=== PATIENT | female | born 1990 | race American Indian/Alaskan Native ===

== ENCOUNTER 2018-09-14 09:17 | Emergency (ER) | payer MEDICAID, OTHER ==
[2018-09-14 09:25] VITALS: BP 104/58
[2018-09-14] MEDS ORDERED: NACL 0.9% 1000 ML 1,000 ML IV ONE ×2 (09:43→11:33)
[2018-09-14] MEDS ORDERED: ATIVAN IV ONE (09:43)
[2018-09-14] MEDS ORDERED: ZOFRAN IV ONE (09:44)
--- NOTE | 2018-09-14 09:48 | Emergency Department Report ---
ED Alcohol HPI - General Chief Complaint: Alcohol Stated Complaint: NAUSEA/VOMITTING Time Seen by Provider: 09/14/18 09:39 Source: patient, EMS Mode of arrival: Wheelchair Limitations: No Limitations - History of Present Illness Initial Comments: Patient is 28 years old female with no significant past medical history. Patient presented to the ER complaining of nausea vomiting and shaking all over. Patient stated that she has been drinking a lot last night. Patient stated that she is depressed because she had a miscarriage one month ago. Patient denied any suicidal or homicidal ideation. She also denied any visual or auditory hallucination. 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 MD Complaint: alcohol intoxication Chronic Alcohol Use: No - Related Data Home Medications Medication Instructions Recorded Confirmed Last Taken Pnv with Ca,No.72/Iron/FA 1 tab PO DAILY 09/17/14 10/11/14 Unknown [ Plus Tablet] Valacyclovir HCl [valACYclovir] 1 tab PO DAILY 09/17/14 10/11/14 Unknown Previous Rx's Medication Instructions Recorded Last Taken Type NIFEdipine 10 mg PO Q6H 30 Days capsule 10/08/14 10/11/14 04:30 Rx 1 DOXYCYCLINE Hyclate [Vibramycin 100 mg PO Q12HR #14 capsule 07/13/18 Unknown Rx CAP] Ibuprofen [Motrin] 800 mg PO Q8HR PRN #20 tablet 07/13/18 Unknown Rx Methylergonovine [Methergine] 0.2 mg PO Q8HR #6 tablet 07/13/18 Unknown Rx metroNIDAZOLE [Flagyl] 500 mg PO Q12HR #14 tab 07/13/18 Unknown Rx Allergies Allergy/AdvReac Type Severity Reaction Status Date / Time No Known Allergies Allergy Verified 06/05/14 09:55 ED Review of Systems ROS: Stated complaint: NAUSEA/VOMITTING Other details as noted in HPI Comment: All other systems reviewed and negative Constitutional: denies: chills, fever Respiratory: denies: cough, orthopnea, shortness of breath, SOB with exertion Cardiovascular: denies: chest pain Gastrointestinal: nausea, vomiting. denies: abdominal pain Musculoskeletal: denies: back pain Psychiatric: anxiety, depression. denies: auditory hallucinations, visual hallucinations, homicidal thoughts, suicidal thoughts ED Past Medical Hx - Past Medical History Previous Medical History?: No Hx Hypertension: No Hx Heart Attack/AMI: No Hx Congestive Heart Failure: No Hx Diabetes: No Hx Deep Vein Thrombosis: No Hx Liver Disease: No Hx Renal Disease: No Hx Sickle Cell Disease: No Hx Seizures: No Hx Psychiatric Treatment: No Hx Asthma: No Hx COPD: No Hx HIV: No Additional medical history: Low BP - Surgical History Past Surgical History?: No - Social History Smoking Status: Never Smoker Substance Use Type: Alcohol - Medications Home Medications: Home Medications Medication Instructions Recorded Confirmed Last Taken Type Pnv with Ca,No.72/Iron/FA 1 tab PO DAILY 09/17/14 10/11/14 Unknown History [ Plus Tablet] Valacyclovir HCl [valACYclovir] 1 tab PO DAILY 09/17/14 10/11/14 Unknown History NIFEdipine 10 mg PO Q6H 30 Days capsule 10/08/14 10/11/14 10/11/14 04:30 Rx 1 DOXYCYCLINE Hyclate [Vibramycin 100 mg PO Q12HR #14 capsule 07/13/18 Unknown Rx CAP] Ibuprofen [Motrin] 800 mg PO Q8HR PRN #20 tablet 07/13/18 Unknown Rx Methylergonovine [Methergine] 0.2 mg PO Q8HR #6 tablet 07/13/18 Unknown Rx metroNIDAZOLE [Flagyl] 500 mg PO Q12HR #14 tab 07/13/18 Unknown Rx ED Physical Exam - General Limitations: No Limitations General appearance: alert, anxious, other (shaking) - Head Head exam: Present: atraumatic, normocephalic, normal inspection - Eye Eye exam: Present: normal appearance, PERRL - ENT ENT exam: Present: normal exam, normal orophraynx, mucous membranes moist - Neck Neck exam: Present: normal inspection, full ROM. Absent: tenderness, meningismus, lymphadenopathy, thyromegaly - Respiratory Respiratory exam: Present: normal lung sounds bilaterally - Cardiovascular Cardiovascular Exam: Present: tachycardia - GI/Abdominal GI/Abdominal exam: Present: soft, normal bowel sounds. Absent: distended, tenderness, guarding, rebound, rigid - Extremities Exam Extremities exam: Present: normal inspection, full ROM, normal capillary refill - Back Exam Back exam: Present: normal inspection, full ROM. Absent: CVA tenderness (R), CVA tenderness (L) - Neurological Exam Neurological exam: Present: alert, oriented X3, CN II-XII intact - Psychiatric Psychiatric exam: Present: depressed, anxious. Absent: agitated, flat affect, manic, homicidal ideation, suicidal ideation - Skin Skin exam: Present: warm, intact, normal color ED Course Vital Signs 09/14/18 09/14/18 09:23 10:00 Temperature 97.6 F Pulse Rate 102 H Respiratory 20 18 Rate Blood Pressure 104/58 O2 Sat by Pulse 100 Oximetry ED Medical Decision Making - Lab Data Result diagrams: 09/14/18 10:05 09/14/18 10:05 - Medical Decision Making Patient is 28 years old female with no significant past medical history. Patient presented to the ER complaining of nausea vomiting and shaking all over. Patient stated that she has been drinking a lot last night. Patient stated that she is depressed because she had a miscarriage one month ago. Patient denied any suicidal or homicidal ideation. She also denied any visual or auditory hallucination. 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 Patient stated that she is feeling much better. Patient is still denying suicidal ideation and refusing mental health assessment. The patient received normal saline and Ativan. No evidence of alcohol withdrawal. Patient advised to follow-up with her primary care physician in the next 2-3 days and to return to the ER if symptoms are not improved. Critical care attestation.: If time is entered above; I have spent that time in minutes in the direct care of this critically ill patient, excluding procedure time. ED Disposition Clinical Impression: Nausea & vomiting, Anxiety, Depression Disposition: DC-01 TO HOME OR SELFCARE Is pt being admited?: No Condition: Stable Instructions: Acute Nausea and Vomiting (ED), Depression (ED) Referrals: CHRIS CAO MD [Primary Care Provider] - 3-5 Days
[2018-09-14 10:19] LABS: Hematocrit 39.1 % (30.3-42.9); Hemoglobin 13.1 gm/dl (10.1-14.3); Mean Corpuscular HGB Conc 34 % (30-34); Mean Corpuscular Volume 85 fl (79-97); Platelet Count 233 K/mm3 (140-440); Red Cell Distribution Width 13.6 % (13.2-15.2)
[2018-09-14 11:04] LABS: BUN/Creatinine Ratio 18; Blood Urea Nitrogen 11 mg/dL (7-17); Calcium 8.4 mg/dL (8.4-10.2); Hemolysis Index 23
[2018-09-14 11:10] LABS: Basophils % (Manual) 0 % (0.0-1.8); Eosinophils % (Manual) 0 % (0.0-4.3); RBC Morphology Normal; Total Cells Counted 100
[2018-09-14 13:36] LABS: Bilirubin,Urine NEG (Negative); Blood,Urine NEG (Negative); Color,Urine Yellow (Yellow); Mucus,Urine FEW /HPF; Protein,Urine <15 mg/dL mg/dL (Negative); Urobilinogen,Urine < 2.0 mg/dL (<2.0)
[2018-09-14 13:44] LABS: Amphetamine Screen,Urine PRESUMPTIVE NEGATIVE; Benzodiazepines Screen,Urine PRESUMPTIVE NEGATIVE; Cocaine Screen,Urine PRESUMPTIVE NEGATIVE; Methadone Screen,Urine PRESUMPTIVE NEGATIVE; Opiate Screen,Urine PRESUMPTIVE NEGATIVE
[2018-09-14 14:02] LABS: Cannabinoid Screen,Urine PRESUMPTIVE POSITIVE
== END 2018-09-14 13:18 | disposition home or self-care (01) ==
LOC: ED 09:17
DX: R11.2 Nausea with vomiting, unspecified (principal); F32.9 Major depressive disorder, single episode, unspecified; F41.9 Anxiety disorder, unspecified; Z79.899 Other long term (current) drug therapy
CPT/HCPCS: 36415; 80048; 80307; 81001; 83690; 85007; 85025; 96361; 96374; 96375; 99284; G0480; J2060; J2405; J7030; 80320

== ENCOUNTER 2020-08-31 22:11 | Emergency (ER) | payer MEDICAID ==
[2020-08-31 22:18] VITALS: BP 126/80
== END 2020-08-31 23:45 | disposition left against medical advice (07) ==
LOC: ED 22:11
DX: R10.9 Unspecified abdominal pain (principal); Z53.21 Procedure and treatment not carried out due to patient leaving prior to being seen by health care provider

== ENCOUNTER 2020-12-28 13:28 | Observation (INO) | payer MEDICAID, OTHER ==
[2020-12-28] MEDS ORDERED: ONDANSETRON 4 MG/2 ML INJ IV PRN ×2 (14:06→16:54)
[2020-12-28] MEDS ORDERED: PROMETHAZINE 25 MG RECT SUPP PR SCH ×2 (15:00→17:00)
[2020-12-28] MEDS ORDERED: METOCLOPRAMIDE 10 MG/2 ML INJ IV SCH ×2 (15:00→17:00)
[2020-12-28] MEDS: D5W/LACTATED RINGERS 1,000 ML IV SCH ×3 (15:47→20:22)
[2020-12-28 15:56] LABS: Bilirubin,Urine NEG (Negative); Blood,Urine NEG (Negative); Color,Urine Yellow (Yellow); Protein,Urine <15 mg/dL mg/dL (Negative); Urobilinogen,Urine < 2.0 mg/dL (<2.0)
[2020-12-28 16:08] LABS: Blood Urea Nitrogen 4 mg/dL (7-17); Calcium 9.3 mg/dL (8.4-10.2); Hemolysis Index 8
[2020-12-28 16:09] LABS: BUN/Creatinine Ratio 13
[2020-12-28] MEDS ORDERED: D5W/LACTATED RINGERS 1,000 ML IV SCH ×2 (17:00)
--- NOTE | 2020-12-28 17:04 | History and Physical Report ---
History of Present Illness Date of examination: 12/28/20 Date of admission: 12/28/20 14:32 Chief complaint: hyperemesis History of present illness: This is Dr. Robertson dictating history and physical patient. Patient is a 30-year-old -[place] female 7 para 3-0-3-3 female last menstrual period 09/30/2020 EDC 07/01/2021 patient has had nausea and vomiting for about 4 days she is early 14 weeks she has been a patient at [facility] for this . Her labs at the clinic showed her blood type was O+ antibody screen was negative Pap smear was normal hematocrit was 40% VDRL was nonreactive urine culture was negative hepatitis B was negative HIV test was negative platelets were 261,000 her gonorrhea chlamydia cultures were negative. Her trichomonas culture was negative hemoglobin A1c was 5.1% she had ultrasound done on 12/07/2020 consistent with 10.4 weeks given her EDC 07/01/2021 are inherited test showed positive for alpha thalassemia therefore the patient has alpha thalassemia trait the father the baby is to be tested as a family history of Fragile X associated with 3 male family members are carrier screen is negative Catamenia 1128 5. This is her seventh she has had 3 full-term induced abortions 1 spontaneous she has 3 living children. The patient drinks alcohol socially she never smoked tobacco The patient is admitted for treatment of hyperemesis at 14 weeks gestation. Past History Past Medical History: no pertinent history Past Surgical History: no surgical history Family/Genetic History: other (FRAGILE X.) - Obstetrical History Expected Date of Delivery: 07/01/21 Actual Gestation: 13 Week(s) 4 Day(s) : 7 Para: 3 Hx # Term Pregnancies: 3 Number of Pregnancies: 0 Spontaneous Abortions: 2 Induced : 1 Number of Living Children: 3 Medications and Allergies Allergies Allergy/AdvReac Type Severity Reaction Status Date / Time No Known Allergies Allergy Verified 06/05/14 09:55 Home Medications Medication Instructions Recorded Confirmed Last Taken Type Pnv with Ca,No.72/Iron/FA 1 tab PO DAILY 09/17/14 10/11/14 Unknown History [ Plus Tablet] Valacyclovir HCl [valACYclovir] 1 tab PO DAILY 09/17/14 10/11/14 Unknown History NIFEdipine 10 mg PO Q6H 30 Days capsule 10/08/14 10/11/14 10/11/14 04:30 Rx 1 DOXYCYCLINE Hyclate [Vibramycin 100 mg PO Q12HR #14 capsule 07/13/18 Unknown Rx CAP] Ibuprofen [Motrin] 800 mg PO Q8HR PRN #20 tablet 07/13/18 Unknown Rx Methylergonovine [Methergine] 0.2 mg PO Q8HR #6 tablet 07/13/18 Unknown Rx metroNIDAZOLE [Flagyl] 500 mg PO Q12HR #14 tab 07/13/18 Unknown Rx Ondansetron [Zofran Odt] 4 mg PO Q8HR PRN #14 tab.rapdis 09/14/18 Unknown Rx Active Meds: Active Medications Dextrose/Lactated Ringer's (D5lr) 1,000 mls @ 500 mls/hr IV DIRECT ALLAN Stop: 12/29/20 16:59 Last Admin: 12/28/20 15:47 Dose: 500 mls/hr Documented by: Dextrose/Lactated Ringer's (D5lr) 1,000 mls @ 150 mls/hr IV DIRECT ALLAN Metoclopramide HCl (Metoclopramide 10 Mg/2 Ml Inj) 10 mg IV Q6H ALLAN Last Admin: 12/28/20 15:32 Dose: 10 mg Documented by: Multivitamins/Iron/Calcium ( Brl71-Cr Fumarate-Folic Acid Vit Tab) 1 each PO QDAY ALLAN Ondansetron HCl (Ondansetron 4 Mg/2 Ml Inj) 4 mg IV Q6H PRN PRN Reason: N/V unrelieved by Oliver Promethazine HCl (Promethazine 25 Mg Rect Supp) 25 mg VA Q6H ALLAN Last Admin: 12/28/20 15:32 Dose: 25 mg Documented by: Review of Systems All systems: negative - Vital Signs Vital signs: Vital Signs Temp Pulse Resp BP Pulse Ox 98.3 F 84 18 102/50 100 12/28/20 15:10 12/28/20 15:10 12/28/20 15:10 12/28/20 15:10 12/28/20 15:10 Temp Pulse Resp BP Pulse Ox 98.3 F 84 18 102/50 100 12/28/20 15:10 12/28/20 15:10 12/28/20 15:10 12/28/20 15:10 12/28/20 15:20 - Physical Exam Breasts: Positive: normal Cardiovascular: Regular rate, Normal S1, Normal S2 Lungs: Positive: Clear to auscultation, Normal air movement Abdomen: Positive: normal appearance, normal bowel sounds Genitourinary (Female): Positive: normal external genitalia, normal perenium Vulva: both: normal Vagina: Positive: normal moisture. Negative: discharge Cervix: Negative: lesion, discharge Uterus: Positive: enlarged (14 WK SIZE) Adnexa: both: normal Anus/Rectum: Positive: normal perianal skin, heme negative. Negative: rectal mass, hemorrhoids Extremities: Deep Tendon Reflex Grade: Normal +2 - Obstetrical FHR: auscultation normal Uterine Contraction Monitor Mode: External Cervical Dilatation: 0 Cervical Effacement Percentage: 0 Uterine Contraction Pattern: Absent Results Result Diagrams: 12/28/20 15:10 Abnormal lab results 12/28/20 Range/Units 15:10 Sodium 133 L (137-145) mmol/L Carbon Dioxide 17 L (22-30) mmol/L BUN 4 L (7-17) mg/dL Creatinine 0.3 L (0.6-1.2) mg/dL All other labs normal. Assessment and Plan - Patient Problems (1) Hyperemesis gravidarum Onset Date: 07/12/14 Current Visit: No Status: Acute (2) Hyperemesis affecting , antepartum Current Visit: Yes Status: Acute Plan to address problem: IV FLUIDS. BEDREST.
[2020-12-28] MEDS ORDERED: ZOLPIDEM 5 MG TAB PO PRN (17:16)
[2020-12-28] MEDS ORDERED: ACETAMINOPHEN 325 MG TAB PO PRN (20:11)
[2020-12-29] MEDS: D5W/LACTATED RINGERS 1,000 ML IV SCH (01:03)
--- NOTE | 2020-12-29 09:27 | XRay Report ---
. XR chest 1V ap INDICATION / CLINICAL INFORMATION: Covid positive. COMPARISON: None available. FINDINGS: SUPPORT DEVICES: None. HEART /PULMONARY VASCULATURE: No significant abnormality. LUNGS / PLEURA: No significant pulmonary or pleural abnormality. No pneumothorax. ADDITIONAL FINDINGS: No significant additional findings. IMPRESSION: 1. No acute findings. Signer Name: Clinton Conti MD Signed: 12/29/2020 9:23 AM Workstation Name: [id number]
--- NOTE | 2020-12-29 09:50 | Progress Note ---
Subjective - Subjective Date of service: 12/29/20 Interval history: Hyperemesis: tolerating PO COVID: no ARDS: O2 sats WNL on room air meets discharge criteria Logan Mckay MD Objective - Vital Signs Latest vital signs: Vital Signs Temp Pulse Resp BP Pulse Ox 12/29/20 05:32 98.6 F 76 20 99/55 100 12/29/20 00:00 99.0 F 86 18 100/46 100 12/28/20 20:47 20 12/28/20 20:16 98.7 F 85 20 101/52 98 12/28/20 15:20 100 12/28/20 15:10 98.3 F 84 18 102/50 100 Intake and Output 12/28/20 12/29/20 12/29/20 23:59 07:59 15:59 Intake Total 1120 822.5 Output Total 400 Balance 720 822.5 Intake: IV 1000 702.5 D5lr 1,000 ml @ 150 mls/ 702.5 hr IV DIRECT ALLAN Rx#: [id number] D5lr 1,000 ml @ 500 mls/ 1000 hr IV DIRECT ALLAN Rx#: [id number] Oral 120 Intake, Free Water 120 Output: Urine 400 Void 400 Other: Total, Intake Amount 120 Total, Output Amount 400 # Voids Void 1 1 Weight 53.099 kg Patient Weight 12/29/20 23:59 Weight 53.099 kg - Labs Labs: Abnormal lab results 12/28/20 Range/Units 15:10 Sodium 133 L (137-145) mmol/L Carbon Dioxide 17 L (22-30) mmol/L BUN 4 L (7-17) mg/dL Creatinine 0.3 L (0.6-1.2) mg/dL
--- NOTE | 2020-12-29 09:51 | Discharge Summary ---
Providers - Providers Date of Admission: 12/28/20 14:32 Date of discharge: 12/29/20 Attending physician: BRENDA MACK MD 12/28/20 14:06 Consult to Dietitian/Nutrition [CONS] Routine Physician Instructions: Reason For Exam: HYPEREMESIS, 13 WKS. Reason for Consult: hyper grav Reason for Consult: HYPEREMESIS GRAVIDARUM 12/28/20 16:54 Consult to Dietitian/Nutrition [CONS] Routine Physician Instructions: Reason For Exam: Reason for Consult: hyper grav Reason for Consult: Poor oral intake Primary care physician: [facility] Hospitalization Reason for admission: other (hyperemesis gravidarum, COVID) Condition at discharge: Stable Disposition: 01 HOME / SELF CARE / HOMELESS Plan - Provider Discharge Summary Additional instructions: [] Smoking cessation referral if applicable(refer to patient education folder for contact #) [] Refer to [facility] Booklet Call your doctor immediately for: * Fever > 100.5 * Heavy vaginal bleeding ( >1 pad per hour) * Severe persistent headache * Shortness of breath * Reddened, hot, painful area to leg or breast * Drainage or odor from incision. * Keep incision clean and dry at all times and follow doctor's instructions regarding bathing/showering - Follow up plan Follow up: PRIMARY CAREMD [Primary Care Provider] - 7 Days
[2020-12-29] MEDS ORDERED: PRENATAL VIT27-FE FUMARATE-FOLIC ACID VIT TAB PO SCH ×2 (10:00)
[2020-12-29 12:24] VITALS: BP 105/62
== END 2020-12-29 12:00 | disposition home or self-care (01) ==
LOC: UNDOADMOB 13:28 → 3A 13:28 → OB 14:32
DX: O21.0 Mild hyperemesis gravidarum (principal); Z3A.13 13 weeks gestation of pregnancy
CPT/HCPCS: 36415; 71045; 80048; 81001; 96361; 96374; 96375; 96376; G0378; G0379; J2405; J2765; J7121

== ENCOUNTER 2021-01-27 16:09 | Emergency (ER) | payer OTHER ==
[2021-01-27] MEDS ORDERED: METOCLOPRAMIDE 10 MG/2 ML INJ IV ONE (16:34)
--- NOTE | 2021-01-27 16:53 | Emergency Department Report ---
HPI - HPI HPI: Room 5 The patient is a 30-year-old female present with a chief complaint of premature contractions. Patient states she is approximately 16 weeks gestational age in early this morning she developed episodes of nausea vomiting. Patient states approximately 1 hour ago she developed intermittent pelvic contractions approximately 1-2 minutes apart. <KINGSTON GOLDBERG - Last Filed: 01/27/21 19:54> <JANE FELIX - Last Filed: 01/27/21 20:35> - General Chief Complaint: Abdominal Pain Time Seen by Provider: 01/27/21 16:22 ED Past Medical Hx - Past Medical History Hx Hypertension: No Hx Heart Attack/AMI: No Hx Congestive Heart Failure: No Hx Diabetes: No Hx Deep Vein Thrombosis: No Hx Liver Disease: No Hx Renal Disease: No Hx Sickle Cell Disease: No Hx Seizures: No Hx Psychiatric Treatment: No Hx Asthma: No Hx COPD: No Hx HIV: No Additional medical history: Low BP - Surgical History Additional Surgical History: D&C - Social History Smoking Status: Never Smoker <KINGSTON GOLDBERG - Last Filed: 01/27/21 19:54> <JANE FELIX - Last Filed: 01/27/21 20:35> - Medications Home Medications: Home Medications Medication Instructions Recorded Confirmed Last Taken Type Pnv with Ca,No.72/Iron/FA 1 tab PO DAILY 09/17/14 12/28/20 Unknown History [ Plus Tablet] Doxylamine Succinate/Vit B6 1 each PO QHS PRN #30 tablet. 01/27/21 Unknown Rx [Bruce Arce 10-10 mg Tablet] Christiano Root [Christiano] 250 mg PO Q6HR PRN #30 capsule 01/27/21 Unknown Rx NIFEdipine [Nifedipine] 10 mg PO Q6H PRN #30 capsule 01/27/21 Unknown Rx ED Review of Systems ROS: Stated complaint: abd pains Other details as noted in HPI <KINGSTON GOLDBERG - Last Filed: 01/27/21 19:54> ROS: Stated complaint: abd pains Other details as noted in HPI <JANE FELIX - Last Filed: 01/27/21 20:35> Physical Exam - Physical Exam Vital Signs: Vital Signs 01/27/21 16:17 Temperature 97.9 F Pulse Rate 80 Respiratory 22 Rate Blood Pressure 102/42 [Right] O2 Sat by Pulse 100 Oximetry <YUSUFKINGSTON Brien - Last Filed: 01/27/21 19:54> - Physical Exam Vital Signs: Vital Signs 01/27/21 01/27/21 01/27/21 16:17 16:55 18:30 Temperature 97.9 F Pulse Rate 80 90 Respiratory 22 16 Rate Blood Pressure 102/42 105/50 [Right] O2 Sat by Pulse 100 96 100 Oximetry <JANE FELIX - Last Filed: 01/27/21 20:35> ED Course Vital Signs 01/27/21 16:17 Temperature 97.9 F Pulse Rate 80 Respiratory 22 Rate Blood Pressure 102/42 [Right] O2 Sat by Pulse 100 Oximetry - Reevaluation(s) Reevaluation #1: 01/27/21 19:53 Patient states she feels good now and is ready to go home. - Consultations Consultation #1: 01/27/21 16:53 Case discussed with [employer] Dr. Snell-recommends nifedipine 20 mg p.o. x1, Ancef 2 g IV, IV fluids and an ultrasound 01/27/21 19:[address] Snell urinalysis is pending-states patient may be discharged home with nifedipine 10 mg p.o. every 6 hours as needed contractions #30 and treat with antibiotics if urine indicative of UTI. <CHILOKatharinaKINGSTON Brien - Last Filed: 01/27/21 19:54> Vital Signs 01/27/21 01/27/21 01/27/21 16:17 16:55 18:30 Temperature 97.9 F Pulse Rate 80 90 Respiratory 22 16 Rate Blood Pressure 102/42 105/50 [Right] O2 Sat by Pulse 100 96 100 Oximetry - Reevaluation(s) Reevaluation #1: 01/27/21 20:34 Patient reassessed. Urinalysis not consistent with infectious pathology. Patient denies physical pain. Patient endorses readiness for discharge. States dissatisfaction with Zofran secondary to underlying constipation. Reports that she has not attempted christiano tablets, or Diclegis. We will discharge with Diclegis and christiano prescriptions. Counseled to rest, avoid heavy lifting, and sexual activity. Patient articulated understanding. She does not go back to work until next week. She is also going to call her [employer], and follow-up next week. <JANE FELIX - Last Filed: 01/27/21 20:35> ED Medical Decision Making - Lab Data Result diagrams: 01/27/21 18:10 01/27/21 18:10 - Radiology Data Radiology results: report reviewed (Pelvic ultrasound), image reviewed (Pelvic ultrasound) [facility] [address] [place] [address] Ultrasound Report Signed Patient: RAGHAVENDRA DURAN MR#: [id number] : 1990 Acct:[id number] Age/Sex: 30 / F ADM Date: 01/27/21 Loc: ED Attending Dr: Ordering Physician: KINGSTON GOLDBERG MD Date of Service: 01/27/21 Procedure(s): US OB >= 14 weeks Fetus Accession Number(s): [id number] cc: KINGSTON GOLDBERG MD ULTRASOUND OBSTETRIC INDICATION / CLINICAL INFORMATION: Premature contractions. Clinical Gestational Age (GA) in weeks, days: 18, 1 TECHNIQUE: Transabdominal. COMPARISON: None available. FINDINGS: Single intrauterine . Biparietal Diameter = 3.9 cm = 17, 5 weeks, days Head Circumference = 14.3 cm = 17, 4 weeks, days Abdominal Circumference = 12.6 cm = 18, 1 weeks, days Femur Length = 2.3 cm = 17, 0 weeks, days Average Ultrasound Age (AUA) = 17, 4 weeks, days Heart Rate: 152 beats per minute. Estimated Weight in grams (if calculated): 202 Estimated Weight Growth Percentile (if calculated): 17% Position: cephalic. Cervix: closed. Length in cm (if measured): 4.0 Placenta: anterior and free of the os. Amniotic Fluid Volume: normal Amniotic Fluid Index (BERNARD) in cm (if calculated): Not calculated. Maternal Adnexa: No significant abnormality. IMPRESSION: 1. Single, living intrauterine with estimated sonographic age of 17, 4 weeks, days. 2. No acute sonographic abnormality. Signer Name: Nima Oneal MD Signed: 01/27/2021 6:23 PM Workstation Name: [id number] Transcribed By: DT Dictated By: Laz Oneal MD Electronically Authenticated By: Laz Oneal MD Signed Date/Time: 01/27/21 045 DD/ 20 TD/TT: Print Cancel - Differential Diagnosis labor, threatened <CHILOKatharinaKINGSTON K - Last Filed: 01/27/21 19:54> - Lab Data Result diagrams: 01/27/21 18:10 01/27/21 18:10 Vital Signs 01/27/21 01/27/21 01/27/21 16:17 16:55 18:30 Temperature 97.9 F Pulse Rate 80 90 Respiratory 22 16 Rate Blood Pressure 102/42 105/50 [Right] O2 Sat by Pulse 100 96 100 Oximetry Lab Results 01/27/21 01/27/21 01/27/21 Range/Units 18:10 18:10 18:10 WBC 16.9 H (4.5-11.0) K/mm3 RBC 4.07 (3.65-5.03) M/mm3 Hgb 11.8 (10.1-14.3) gm/dl Hct 35.0 (30.3-42.9) % MCV 86 (79-97) fl MCH 29 (28-32) pg MCHC 34 (30-34) % RDW 13.4 (13.2-15.2) % Plt Count 220 (140-440) K/mm3 Lymph % (Auto) 7.7 L (13.4-35.0) % [place] % (Auto) 4.6 (0.0-7.3) % Eos % (Auto) 0.2 (0.0-4.3) % Baso % (Auto) 0.1 (0.0-1.8) % Lymph # (Auto) 1.3 (1.2-5.4) K/mm3 [place] # (Auto) 0.8 (0.0-0.8) K/mm3 Eos # (Auto) 0.0 (0.0-0.4) K/mm3 Baso # (Auto) 0.0 (0.0-0.1) K/mm3 Seg Neutrophils % 87.4 H (40.0-70.0) % Seg Neutrophils # 14.7 H (1.8-7.7) K/mm3 Sodium 134 L (137-145) mmol/L Potassium 3.4 L (3.6-5.0) mmol/L Chloride 103.1 (98-107) mmol/L Carbon Dioxide 17 L (22-30) mmol/L Anion Gap 17 mmol/L BUN 6 L (7-17) mg/dL Creatinine 0.4 L (0.6-1.2) mg/dL Estimated GFR > 60 ml/min BUN/Creatinine Ratio 15 % Glucose 91 (65-100) mg/dL Calcium 8.5 (8.4-10.2) mg/dL Total Bilirubin 0.30 (0.1-1.2) mg/dL AST < 5 L (5-40) units/L ALT 13 (7-56) units/L Alkaline Phosphatase 71 (35-129) units/L Total Protein 7.0 (6.3-8.2) g/dL Albumin 3.9 (3.9-5) g/dL Albumin/Globulin Ratio 1.3 % HCG, Quant 96833 H (0-4) mIU/mL Urine Color (Yellow) Urine Turbidity (Clear) Urine pH (5.0-7.0) Ur Specific [place] (1.003-1.030) Urine Protein (Negative) mg/dL Urine Glucose (UA) (Negative) mg/dL Urine Ketones (Negative) mg/dL Urine Blood (Negative) Urine Nitrite (Negative) Urine Bilirubin (Negative) Urine Urobilinogen (<2.0) mg/dL Ur Leukocyte Esterase (Negative) Urine WBC (Auto) (0.0-6.0) /HPF Urine RBC (Auto) (0.0-6.0) /HPF U Epithel Cells (Auto) (0-13.0) /HPF Amorphous Crystals Urine Mucus /HPF Blood Type 01/27/21 01/27/21 Range/Units 18:10 18:41 WBC (4.5-11.0) K/mm3 RBC (3.65-5.03) M/mm3 Hgb (10.1-14.3) gm/dl Hct (30.3-42.9) % MCV (79-97) fl MCH (28-32) pg MCHC (30-34) % RDW (13.2-15.2) % Plt Count (140-440) K/mm3 Lymph % (Auto) (13.4-35.0) % [place] % (Auto) (0.0-7.3) % Eos % (Auto) (0.0-4.3) % Baso % (Auto) (0.0-1.8) % Lymph # (Auto) (1.2-5.4) K/mm3 [place] # (Auto) (0.0-0.8) K/mm3 Eos # (Auto) (0.0-0.4) K/mm3 Baso # (Auto) (0.0-0.1) K/mm3 Seg Neutrophils % (40.0-70.0) % Seg Neutrophils # (1.8-7.7) K/mm3 Sodium (137-145) mmol/L Potassium (3.6-5.0) mmol/L Chloride (98-107) mmol/L Carbon Dioxide (22-30) mmol/L Anion Gap mmol/L BUN (7-17) mg/dL Creatinine (0.6-1.2) mg/dL Estimated GFR ml/min BUN/Creatinine Ratio % Glucose (65-100) mg/dL Calcium (8.4-10.2) mg/dL Total Bilirubin (0.1-1.2) mg/dL AST (5-40) units/L ALT (7-56) units/L Alkaline Phosphatase (35-129) units/L Total Protein (6.3-8.2) g/dL Albumin (3.9-5) g/dL Albumin/Globulin Ratio % HCG, Quant (0-4) mIU/mL Urine Color Yellow (Yellow) Urine Turbidity Hazy (Clear) Urine pH 8.0 H (5.0-7.0) Ur Specific [place] 1.016 (1.003-1.030) Urine Protein 30 mg/dl (Negative) mg/dL Urine Glucose (UA) Neg (Negative) mg/dL Urine Ketones 20 (Negative) mg/dL Urine Blood Neg (Negative) Urine Nitrite Neg (Negative) Urine Bilirubin Neg (Negative) Urine Urobilinogen < 2.0 (<2.0) mg/dL Ur Leukocyte Esterase Neg (Negative) Urine WBC (Auto) 2.0 (0.0-6.0) /HPF Urine RBC (Auto) 2.0 (0.0-6.0) /HPF U Epithel Cells (Auto) 3.0 (0-13.0) /HPF Amorphous Crystals Few Urine Mucus Few /HPF Blood Type O POSITIVE <JANE FELIX - Last Filed: 01/27/21 20:35> Critical care attestation.: If time is entered above; I have spent that time in minutes in the direct care of this critically ill patient, excluding procedure time. <CHILOKatharinaKINGSTON - Last Filed: 01/27/21 19:54> Critical care attestation.: If time is entered above; I have spent that time in minutes in the direct care of this critically ill patient, excluding procedure time. <ISIDROJANE - Last Filed: 01/27/21 20:35> ED Disposition Is pt being admited?: No Does the pt Need Aspirin: No <KINGSTON GOLDBERG - Last Filed: 01/27/21 19:54> Is pt being admited?: No Does the pt Need Aspirin: No <ISIDROJANE - Last Filed: 01/27/21 20:35> Clinical Impression: Premature uterine contractions Disposition: 01 HOME / SELF CARE / HOMELESS Condition: Good Instructions: Abdominal Pain (ED) Additional Instructions: Return to the emergency department should you develop worsening symptoms, inability to tolerate food or liquids, high fever or any other concerns Prescriptions: Doxylamine Succinate/Vit B6 [Bruce Arce 10-10 mg Tablet] 1 each PO QHS PRN #30 tablet. PRN Reason: Nausea Christiano Root [Christiano] 250 mg PO Q6HR PRN #30 capsule PRN Reason: Nausea NIFEdipine [Nifedipine] 10 mg PO Q6H PRN #30 capsule PRN Reason: Labor Pain Referrals: BRAYAN SNELL MD [Staff Physician] - 7-10 days
[2021-01-27] MEDS: SODIUM CHLORIDE 0.9% 1000 ML 1,000 ML IV ONE ×2 (16:54→17:10)
[2021-01-27] MEDS ORDERED: NIFEdipine*For Tocolysis only* 10 MG CAPSULE PO ONE (17:00)
[2021-01-27] MEDS ORDERED: ONDANSETRON 4 MG/2 ML INJ IV ONE ×2 (17:05→20:08)
--- NOTE | 2021-01-27 18:27 | Ultrasound Report ---
ULTRASOUND OBSTETRIC INDICATION / CLINICAL INFORMATION: Premature contractions. Clinical Gestational Age (GA) in weeks, days: 18, 1 TECHNIQUE: Transabdominal. COMPARISON: None available. FINDINGS: Single intrauterine . Biparietal Diameter = 3.9 cm = 17, 5 weeks, days Head Circumference = 14.3 cm = 17, 4 weeks, days Abdominal Circumference = 12.6 cm = 18, 1 weeks, days Femur Length = 2.3 cm = 17, 0 weeks, days Average Ultrasound Age (AUA) = 17, 4 weeks, days Heart Rate: 152 beats per minute. Estimated Weight in grams (if calculated): 202 Estimated Weight Growth Percentile (if calculated): 17% Position: cephalic. Cervix: closed. Length in cm (if measured): 4.0 Placenta: anterior and free of the os. Amniotic Fluid Volume: normal Amniotic Fluid Index (BERNARD) in cm (if calculated): Not calculated. Maternal Adnexa: No significant abnormality. IMPRESSION: 1. Single, living intrauterine with estimated sonographic age of 17, 4 weeks, days. 2. No acute sonographic abnormality. Signer Name: Nima Oneal MD Signed: 01/27/2021 6:23 PM Workstation Name: [id number]
[2021-01-27 18:39] LABS: Basophils % (Auto) 0.1 % (0.0-1.8); Eosinophils % (Auto) 0.2 % (0.0-4.3); Hemoglobin 11.8 gm/dl (10.1-14.3); Lymphocytes # (Auto) 1.3 K/mm3 (1.2-5.4); Lymphocytes % (Auto) 7.7 % (13.4-35.0); Mean Corpuscular HGB Conc 34 % (30-34); Mean Corpuscular Volume 86 fl (79-97); Monocytes # (Auto) 0.8 K/mm3 (0.0-0.8); Monocytes % (Auto) 4.6 % (0.0-7.3); Platelet Count 220 K/mm3 (140-440); Red Blood Count 4.07 M/mm3 (3.65-5.03); Red Cell Distribution Width 13.4 % (13.2-15.2)
[2021-01-27 18:46] LABS: Alanine Aminotransferase 13 units/L (7-56); Albumin 3.9 g/dL (3.9-5); Blood Urea Nitrogen 6 mg/dL (7-17); Calcium 8.5 mg/dL (8.4-10.2); Hemolysis Index 0
[2021-01-27 18:52] LABS: BUN/Creatinine Ratio 15
[2021-01-27 20:05] LABS: Amorphous Crystals,Urine Few; Bilirubin,Urine NEG (Negative); Blood,Urine NEG (Negative); Color,Urine Yellow (Yellow); Mucus,Urine FEW /HPF; Urobilinogen,Urine < 2.0 mg/dL (<2.0)
[2021-01-27 20:42] VITALS: BP 96/49
== END 2021-01-27 21:18 | disposition home or self-care (01) ==
LOC: ED 16:09
DX: O47.02 False labor before 37 completed weeks of gestation, second trimester (principal); Z3A.16 16 weeks gestation of pregnancy
CPT/HCPCS: 36415; 76805; 80053; 81001; 84702; 85025; 86900; 86901; 96361; 96365; 96375; 96376; 99284; J0690; J2405; J2765; J7030

== ENCOUNTER 2021-01-29 23:25 | Emergency (ER) | payer OTHER ==
[2021-01-29] MEDS ORDERED: METOCLOPRAMIDE 10 MG/2 ML INJ IV ONE (23:32)
[2021-01-29] MEDS ORDERED: FAMOTIDINE 20 MG/2 ML INJ IV ONE (23:32)
[2021-01-29] MEDS ORDERED: diphenhydrAMINE 50 MG/ML VIAL IV ONE (23:32)
[2021-01-29] MEDS ORDERED: MORPHINE 4 MG/1 ML INJ IV ONE (23:32)
[2021-01-29] MEDS ORDERED: SODIUM CHLORIDE 0.9% 1000 ML 1,000 ML IV ONE (23:33)
--- NOTE | 2021-01-29 23:35 | Event Note ---
ED Screening Note Date of service: 01/29/21 Time: 23:33 ED Screening Note: Patient is a G7, 40-year-old -[place] female with no past medical history and who is approximately 18 weeks gestation presents to the ED with complaint of acute onset persistent severe diffuse abdominal pain, intractable nausea and vomiting, generalized weakness and fatigue with lack of appetite for the last 12 hours. 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 Patient denies dysuria, vaginal bleeding, vaginal discharge, chest pain or shortness of breath, headache, dizziness, syncope, lightheadedness, fever and chills, diarrhea or back pain. This initial assessment/diagnostic orders/clinical plan/treatment(s) is/are subject to change based on patients health status, clinical progression and re- assessment by fellow clinical providers in the ED. Further treatment and workup at subsequent clinical providers discretion. Patient/guardian urged not to elope from the ED as their condition may be serious if not clinically assessed and managed. Initial orders include: CBC, CMP, lipase, UA, qualitative hCG serum
[2021-01-29] MEDS ORDERED: D5W/0.45% NACL/KCL 40 MEQ 40 MEQ/1,000 ML BAG IV SCH (23:45)
[2021-01-29] MEDS ORDERED: LACTATED RINGERS 1,000 ML IV ONE (23:59)
--- NOTE | 2021-01-30 | Emergency Department Report ---
ED General Adult HPI - General Chief complaint: Abdominal Pain Stated complaint: ABD PAIN/18WKS PUI?: No Time Seen by Provider: 01/29/21 23:42 Source: patient, RN notes reviewed, old records reviewed Mode of arrival: Ambulatory Limitations: No Limitations - History of Present Illness Initial comments: The patient was evaluated in the emergency department for symptoms described in the history of present illness. He/she was evaluated in the context of the global COVID-19 pandemic, which necessitated consideration that the patient might be at risk for infection with the virus that causes COVID-19. Institutional protocols and algorithms that pertain to the evaluation of patients at risk for COVID-19 are in a state of rapid change based on information released by regulatory bodies including the CDC and federal and state organizations. These policies and algorithms were followed during the patient's care in the emergency department. Please note that these policies, procedures and recommendations changed on a rapid basis. 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 The patient presents to the ER today with a recurrent complaint of abdominal cramping, nausea vomiting, and inability to tolerate liquid feeds. When I saw this patient a few days ago, after assuming care from my colleague, she was prescribed pyridoxine, and christiano tablets. She is taking pyridoxine, not able to get the christiano tablets prescribed. She does take Zofran periodically, but does not like it because of constipation. The patient states she has vomited multiple times today. She has abdominal cramping. She also endorses clear discharge from her vagina, which has been present for weeks. She has not disclosed this to her TRUCK DRIVER INSTRUCTOR. Her symptoms occasionally get better if she takes a hot bath or shower. She states that she does not personally consume marijuana or smoke products. She does report secondhand exposure to marijuana. She denies severe headache, neck pain, chest pain, dysuria. She denies focal extremity weakness and numbness. She denies Covid symptomatology. -: Gradual, days(s) Location: abdomen Radiation: non-radiation Quality: aching Consistency: intermittent Improves with: none Worsens with: eating - Related Data Home Medications Medication Instructions Recorded Confirmed Last Taken Pnv with Ca,No.72/Iron/FA 1 tab PO DAILY 09/17/14 12/28/20 Unknown [ Plus Tablet] Previous Rx's Medication Instructions Recorded Last Taken Type Doxylamine Succinate/Vit B6 1 each PO QHS PRN #30 tablet. 01/27/21 Unknown Rx [Bruce Arce 10-10 mg Tablet] Christiano Root [Christiano] 250 mg PO Q6HR PRN #30 capsule 01/27/21 Unknown Rx NIFEdipine [Nifedipine] 10 mg PO Q6H PRN #30 capsule 01/27/21 Unknown Rx Metoclopramide [Reglan] 10 mg PO Q6HR PRN #30 tablet 01/30/21 Unknown Rx Promethazine [Phenergan] 25 mg PO Q6HR PRN #30 tab 01/30/21 Unknown Rx Allergies Allergy/AdvReac Type Severity Reaction Status Date / Time No Known Allergies Allergy Verified 06/05/14 09:55 ED Review of Systems ROS: Stated complaint: ABD PAIN/18WKS Other details as noted in HPI Constitutional: malaise, weakness. denies: fever Eyes: denies: eye discharge ENT: denies: epistaxis Respiratory: denies: cough Cardiovascular: denies: chest pain Gastrointestinal: abdominal pain, nausea, vomiting. denies: diarrhea Genitourinary: denies: dysuria Musculoskeletal: denies: back pain Neurological: weakness Psychiatric: anxiety Hematological/Lymphatic: denies: easy bleeding ED Past Medical Hx - Past Medical History Hx Hypertension: No Hx Heart Attack/AMI: No Hx Congestive Heart Failure: No Hx Diabetes: No Hx Deep Vein Thrombosis: No Hx Liver Disease: No Hx Renal Disease: No Hx Sickle Cell Disease: No Hx Seizures: No Hx Psychiatric Treatment: No Hx Asthma: No Hx COPD: No Hx HIV: No Additional medical history: Low BP - Surgical History Additional Surgical History: D&C - Social History Smoking Status: Never Smoker Substance Use Type: None - Medications Home Medications: Home Medications Medication Instructions Recorded Confirmed Last Taken Type Pnv with Ca,No.72/Iron/FA 1 tab PO DAILY 09/17/14 12/28/20 Unknown History [ Plus Tablet] Doxylamine Succinate/Vit B6 1 each PO QHS PRN #30 tablet. 01/27/21 Unknown Rx [Bruce Arce 10-10 mg Tablet] Christiano Root [Christiano] 250 mg PO Q6HR PRN #30 capsule 01/27/21 Unknown Rx NIFEdipine [Nifedipine] 10 mg PO Q6H PRN #30 capsule 01/27/21 Unknown Rx Metoclopramide [Reglan] 10 mg PO Q6HR PRN #30 tablet 01/30/21 Unknown Rx Promethazine [Phenergan] 25 mg PO Q6HR PRN #30 tab 01/30/21 Unknown Rx ED Physical Exam - General Limitations: No Limitations General appearance: alert, anxious, in distress - Head Head exam: Present: atraumatic, normocephalic - Eye Eye exam: Present: normal appearance, EOMI. Absent: nystagmus - ENT ENT exam: Present: normal exam, normal orophraynx, mucous membranes moist, normal external ear exam - Neck Neck exam: Present: normal inspection, full ROM. Absent: tenderness, meningismus - Respiratory Respiratory exam: Present: normal lung sounds bilaterally. Absent: respiratory distress, wheezes, rales, rhonchi, stridor, decreased breath sounds - Cardiovascular Cardiovascular Exam: Present: normal rhythm, tachycardia. Absent: bradycardia, irregular rhythm, normal heart sounds, systolic murmur, diastolic murmur, rubs, gallop - GI/Abdominal GI/Abdominal exam: Present: soft, other (Uterus is consistent with dates. While distracted, the abdomen is nontender.). Absent: distended, tenderness, guarding, rebound, rigid, pulsatile mass - Extremities Exam Extremities exam: Present: normal inspection, full ROM, other (2+ pulses noted i n the bilateral upper and lower extremities. There is no palpable cord. negative Homans sign. Muscular compartments are soft. The pelvis is stable.). Absent: pedal edema, calf tenderness - Back Exam Back exam: Present: normal inspection. Absent: tenderness, CVA tenderness (R), CVA tenderness (L), paraspinal tenderness, vertebral tenderness - Neurological Exam Neurological exam: Present: alert, oriented X3, other (No facial droop. Tongue midline. Extraocular movements intact bilaterally. Facial sensation intact to light touch in V1, V2, V3 distribution bilaterally. 5 and a 5 strength in 4 extremities. Sensation intact to light touch in 4 extremities.). Absent: motor sensory deficit - Psychiatric Psychiatric exam: Present: anxious - Skin Skin exam: Present: warm, dry, intact, normal color. Absent: rash ED Course Vital Signs 01/30/21 01/30/21 01:26 05:23 Temperature 98.4 F Pulse Rate 98 H Respiratory 18 18 Rate Blood Pressure 109/54 [Right] O2 Sat by Pulse 100 Oximetry - Reevaluation(s) Reevaluation #1: 01/30/21 00:17 Differential diagnosis, including not limited to: , dehydration, premature contractions, hyperemesis gravidarum, cannabinoid hyperemesis syndrome Assessment and plan: 30-year-old female, with past history of hyperemesis gravidarum x2, requiring hospitalization twice by her history, presenting with recurrent abdominal cramping, nausea vomiting, difficulty tolerating liquid feeds. Start D5 half-normal with potassium repletion. Start antiemetics. Obtain appropriate laboratory studies. Obtain urinalysis, and urine drug screen. The patient is clinically sober at this time. Strongly counseled to avoid all secondhand and first and exposure to cannabis/marijuana. Repeat ultrasound to assess for interval change. Reassess after initial data points. For leukocytosis today is reviewed and appreciated. This is likely a stress reaction, and also likely secondary to underlying physiology of . There is no right lower quadrant tenderness, rebound or guarding. There is a negative Rovsing sign. There is no right upper quadrant tenderness. 01/30/21 02:19 The patient is much improved. Abdomen soft on repeat exam. She is sleeping comfortably in her stretcher. No active vomiting. Ultrasound essentially unchanged. I have reinterviewed the patient. She now endorses that she occasionally consumes marijuana. She is clinically sober at this time. I have strongly advised the patient to discontinue marijuana consumption. She denies urinary symptoms and she is clinically sober at this time. Patient is amenable to oral Phenergan. We also discussed constipation regimen, including consumption of fiber, vegetables, lean protein, and [id number] stool bulking agents 01/30/21 02:58 Patient is resting comfortably in stretcher. No active vomiting. Appears very comfortable. Belly continues to remain soft on repeat examinations. No urinary symptoms. 01/30/21 04:49 Patient endorsing recurrent discomfort. She does not have active vomiting. Her belly is soft on repeat examination. Suspect that this is natural history of GERD/gastritis/reflux, as well as irritated abdominal musculature, and cannabinoid hyperemesis syndrome. Explained this to patient. Explained to patient that we will provide dose of breakthrough pain medication to assist with her physical comfort, but that that she will need to follow-up with her TRUCK DRIVER INSTRUCTOR doctor. 01/30/21 05:38 Patient states she is significantly improved. She is ready for discharge. She states she is motivated to stop smoking marijuana. ED Medical Decision Making - Lab Data Result diagrams: 01/29/21 23:45 01/29/21 23:45 Lab Results 01/29/21 01/29/21 Range/Units 23:45 23:45 WBC 19.7 H (4.5-11.0) K/mm3 RBC 3.83 (3.65-5.03) M/mm3 Hgb 11.1 (10.1-14.3) gm/dl Hct 32.4 (30.3-42.9) % MCV 85 (79-97) fl MCH 29 (28-32) pg MCHC 34 (30-34) % RDW 13.3 (13.2-15.2) % Plt Count 234 (140-440) K/mm3 Lymph % (Auto) 11.0 L (13.4-35.0) % [place] % (Auto) 5.5 (0.0-7.3) % Eos % (Auto) 0.0 (0.0-4.3) % Baso % (Auto) 0.3 (0.0-1.8) % Lymph # (Auto) 2.2 (1.2-5.4) K/mm3 [place] # (Auto) 1.1 H (0.0-0.8) K/mm3 Eos # (Auto) 0.0 (0.0-0.4) K/mm3 Baso # (Auto) 0.1 (0.0-0.1) K/mm3 Seg Neutrophils % 83.2 H (40.0-70.0) % Seg Neutrophils # 16.3 H (1.8-7.7) K/mm3 HCG, Qual Positive (Negative) Vital Signs 01/30/21 01:26 Temperature 98.4 F Pulse Rate 98 H Respiratory 18 Rate Blood Pressure 109/54 [Right] O2 Sat by Pulse 100 Oximetry Lab Results 01/29/21 01/29/21 01/29/21 Range/Units 23:45 23:45 23:45 WBC 19.7 H (4.5-11.0) K/mm3 RBC 3.83 (3.65-5.03) M/mm3 Hgb 11.1 (10.1-14.3) gm/dl Hct 32.4 (30.3-42.9) % MCV 85 (79-97) fl MCH 29 (28-32) pg MCHC 34 (30-34) % RDW 13.3 (13.2-15.2) % Plt Count 234 (140-440) K/mm3 Lymph % (Auto) 11.0 L (13.4-35.0) % [place] % (Auto) 5.5 (0.0-7.3) % Eos % (Auto) 0.0 (0.0-4.3) % Baso % (Auto) 0.3 (0.0-1.8) % Lymph # (Auto) 2.2 (1.2-5.4) K/mm3 Greenwood # (Auto) 1.1 H (0.0-0.8) K/mm3 Eos # (Auto) 0.0 (0.0-0.4) K/mm3 Baso # (Auto) 0.1 (0.0-0.1) K/mm3 Seg Neutrophils % 83.2 H (40.0-70.0) % Seg Neutrophils # 16.3 H (1.8-7.7) K/mm3 Sodium 136 L (137-145) mmol/L Potassium 3.6 (3.6-5.0) mmol/L Chloride 103.2 (98-107) mmol/L Carbon Dioxide 17 L (22-30) mmol/L Anion Gap 19 mmol/L BUN 8 (7-17) mg/dL Creatinine 0.4 L (0.6-1.2) mg/dL Estimated GFR > 60 ml/min BUN/Creatinine Ratio 20 % Glucose 89 (65-100) mg/dL Calcium 9.2 (8.4-10.2) mg/dL Total Bilirubin 0.40 (0.1-1.2) mg/dL AST 24 (5-40) units/L ALT 19 (7-56) units/L Alkaline Phosphatase 70 (35-129) units/L Total Protein 7.2 (6.3-8.2) g/dL Albumin 4.1 (3.9-5) g/dL Albumin/Globulin Ratio 1.3 % Lipase (13-60) units/L HCG, Qual Positive (Negative) 01/29/21 Range/Units 23:45 WBC (4.5-11.0) K/mm3 RBC (3.65-5.03) M/mm3 Hgb (10.1-14.3) gm/dl Hct (30.3-42.9) % MCV (79-97) fl MCH (28-32) pg MCHC (30-34) % RDW (13.2-15.2) % Plt Count (140-440) K/mm3 Lymph % (Auto) (13.4-35.0) % Greenwood % (Auto) (0.0-7.3) % Eos % (Auto) (0.0-4.3) % Baso % (Auto) (0.0-1.8) % Lymph # (Auto) (1.2-5.4) K/mm3 Greenwood # (Auto) (0.0-0.8) K/mm3 Eos # (Auto) (0.0-0.4) K/mm3 Baso # (Auto) (0.0-0.1) K/mm3 Seg Neutrophils % (40.0-70.0) % Seg Neutrophils # (1.8-7.7) K/mm3 Sodium (137-145) mmol/L Potassium (3.6-5.0) mmol/L Chloride (98-107) mmol/L Carbon Dioxide (22-30) mmol/L Anion Gap mmol/L BUN (7-17) mg/dL Creatinine (0.6-1.2) mg/dL Estimated GFR ml/min BUN/Creatinine Ratio % Glucose (65-100) mg/dL Calcium (8.4-10.2) mg/dL Total Bilirubin (0.1-1.2) mg/dL AST (5-40) units/L ALT (7-56) units/L Alkaline Phosphatase (35-129) units/L Total Protein (6.3-8.2) g/dL Albumin (3.9-5) g/dL Albumin/Globulin Ratio % Lipase 9 L (13-60) units/L HCG, Qual (Negative) - Radiology Data Radiology results: pending, report reviewed, image reviewed ULTRASOUND OBSTETRIC INDICATION / CLINICAL INFORMATION: Premature contractions. Clinical Gestational Age (GA) in weeks, days: 18, 1 TECHNIQUE: Transabdominal. COMPARISON: None available. FINDINGS: Single intrauterine . Biparietal Diameter = 3.9 cm = 17, 5 weeks, days Head Circumference = 14.3 cm = 17, 4 weeks, days Abdominal Circumference = 12.6 cm = 18, 1 weeks, days Femur Length = 2.3 cm = 17, 0 weeks, days Average Ultrasound Age (AUA) = 17, 4 weeks, days Heart Rate: 152 beats per minute. Estimated Weight in grams (if calculated): 202 Estimated Weight Growth Percentile (if calculated): 17% Position: cephalic. Cervix: closed. Length in cm (if measured): 4.0 Placenta: anterior and free of the os. Amniotic Fluid Volume: normal Amniotic Fluid Index (BERNARD) in cm (if calculated): Not calculated. Maternal Adnexa: No significant abnormality. IMPRESSION: 1. Single, living intrauterine with estimated sonographic age of 17, 4 weeks, days. 2. No acute sonographic abnormality. Signer Name: Nima Oneal MD Signed: 01/27/2021 5:23 PM Workstation Name: [id number] Limited obstetrical ultrasound INDICATION: , pain, nausea, vomiting COMPARISON: 01/27/2021 FINDINGS: Intrauterine is again noted with estimated gestational age of 18 weeks 3 days which corresponds with clinical dating. Cardiac activity was documented at 149 bpm. No obvious anomalies are seen in a brief survey. Amniotic fluid volume appears appropriate. Anterior placenta is free of the internal cervical os. Cervical length is 3.3 cm. No placental abnormalities are seen. IMPRESSION: 18 week 3 day intrauterine without obvious abnormality Signer Name: Sarbjit Becerra MD Signed: 01/30/2021 12:55 AM Workstation Name: [id number] Critical care attestation.: If time is entered above; I have spent that time in minutes in the direct care of this critically ill patient, excluding procedure time. ED Disposition Clinical Impression: Nausea and vomiting during , Abdominal pain during , History of marijuana use Disposition: HOME / SELF CARE / HOMELESS Is pt being admited?: No Does the pt Need Aspirin: No Condition: Good Instructions: Abdominal Pain (ED) Additional Instructions: Recommend the patient immediately discontinue consumption of marijuana, and avoids all secondhand adverse and exposure to marijuana and smoke products. Continue current vitamins, vitamin B6/pyridoxine, and christiano tablets. Patient may also purchase christiano [id number]. Patient may also take the Reglan, alternating with Phenergan, as needed for nausea and vomiting. Advance diet as tolerated, do not take Motrin, ibuprofen, Naprosyn, Aleve, or consume heavy and spicy foods. Patient may take Tylenol/ acetaminophen [id number] as needed for physical pain. Patient may continue to take hot baths and/or hot showers as needed for physical abdominal pain, patient may also apply hot sauce to her anterior abdominal wall, as needed for abdominal cramping, nausea and vomiting. We suspect that the patient may have a component of cannabinoid hyperemesis syndrome. Treatment for this is discontinuation and avoidance of marijuana and marijuana- containing products. Patient should consume plenty of fiber, vegetables, lean protein, and drink at least 4 cups of water per day. Please follow-up with your TRUCK DRIVER INSTRUCTOR doctor within the next 3 to 5 days for repeat checkup and evaluation. Please return to the emergency room right away with new pain, worsened pain, migration of pain, projectile vomiting, change in mental status, confusion, inability to tolerate liquid feeds, new, worsened or different symptoms not present on the initial emergency room evaluation. Prescriptions: Promethazine [Phenergan] 25 mg PO Q6HR PRN #30 tab PRN Reason: Nausea Metoclopramide [Reglan] 10 mg PO Q6HR PRN #30 tablet PRN Reason: Nausea Referrals: [facility] [Provider Group] - 3-5 Days
[2021-01-30 00:04] LABS: Hematocrit 32.4 % (30.3-42.9); Hemoglobin 11.1 gm/dl (10.1-14.3); Mean Corpuscular HGB Conc 34 % (30-34); Mean Corpuscular Volume 85 fl (79-97); Platelet Count 234 K/mm3 (140-440); Red Blood Count 3.83 M/mm3 (3.65-5.03); Red Cell Distribution Width 13.3 % (13.2-15.2)
[2021-01-30 00:05] LABS: Basophils # (Auto) 0.1 K/mm3 (0.0-0.1); Basophils % (Auto) 0.3 % (0.0-1.8); Lymphocytes # (Auto) 2.2 K/mm3 (1.2-5.4); Monocytes # (Auto) 1.1 K/mm3 (0.0-0.8); Monocytes % (Auto) 5.5 % (0.0-7.3)
[2021-01-30 00:22] LABS: Alanine Aminotransferase 19 units/L (7-56); Albumin 4.1 g/dL (3.9-5); Blood Urea Nitrogen 8 mg/dL (7-17); Calcium 9.2 mg/dL (8.4-10.2); Hemolysis Index 0
[2021-01-30 00:24] LABS: BUN/Creatinine Ratio 20
[2021-01-30] MEDS ORDERED: MORPHINE 4 MG/1 ML INJ IV ONE (00:32)
[2021-01-30] MEDS ORDERED: HYDROmorphone 1 MG/1 ML INJ IV ONE ×2 (01:13→04:48)
[2021-01-30 01:27] VITALS: BP 109/54
--- NOTE | 2021-01-30 02:00 | Ultrasound Report ---
Limited obstetrical ultrasound INDICATION: , pain, nausea, vomiting COMPARISON: 01/27/2021 FINDINGS: Intrauterine is again noted with estimated gestational age of 18 weeks 3 days whi ch corresponds with clinical dating. Cardiac activity was documented at 149 bpm. No obvious anomalies are seen in a brief survey. Amniotic fluid volume appears appropriate. Anterior placenta is free of the internal cervical os. Cervical length is 3.3 cm. No placental abnormalities are seen. IMPRESSION: 18 week 3 day intrauterine without obvious abnormality Signer Name: Sarbjit Becerra MD Signed: 01/30/2021 1:55 AM Workstation Name: [id number]
[2021-01-30] MEDS ORDERED: ONDANSETRON 4 MG/2 ML INJ IV ONE (04:52)
[2021-01-30] MEDS: PANTOPRAZOLE 40 MG INJ IV ONE ×2 (05:23→05:33)
== END 2021-01-30 06:54 | disposition home or self-care (01) ==
LOC: ED 23:25
DX: O21.9 Vomiting of pregnancy, unspecified (principal); O26.892 Other specified pregnancy related conditions, second trimester; R10.9 Unspecified abdominal pain; Z3A.18 18 weeks gestation of pregnancy; F12.90 Cannabis use, unspecified, uncomplicated
CPT/HCPCS: 36415; 76816; 80053; 83690; 84703; 85025; 96365; 96366; 96375; 96376; 99284; C9113; J1170; J2270; J2765; 96361; 96374

== ENCOUNTER 2021-02-01 08:35 | Emergency (ER) | payer OTHER ==
[2021-02-01] MEDS ORDERED: SODIUM CHLORIDE 0.9% 1000 ML 1,000 ML IV ONE ×2 (09:08→11:27)
[2021-02-01] MEDS ORDERED: LORazepam 2 MG/ML VIAL IV ONE (09:08)
[2021-02-01] MEDS ORDERED: ONDANSETRON 4 MG/2 ML INJ IV ONE ×2 (09:08→11:25)
--- NOTE | 2021-02-01 09:18 | Emergency Department Report ---
ED Abdominal Pain HPI - General Chief Complaint: OB/Uterine Contractions Stated Complaint: 19WKS PREG/LOW ABD PAIN/NO BLEEDING Time Seen by Provider: 02/01/21 08:46 Source: patient, family Mode of arrival: Wheelchair Limitations: Physical Limitation - History of Present Illness Initial Comments: CC: abdominal pain, HPI: This is a 30 yo female with hx of marijuand dependence who presents with "contractions" Severe bilateral lower quadrant pelvic pain which feels like contractions. She denies vaginal bleeding. 1010 pain. She states that she had similar pain with her previous . She states "they will not keep me because I am not 20 weeks." She stopped smoking marijuana 2 weeks ago. I reviewed electronic medical record: OB ultrasound obtained 3 days ago revealed 18-week 3-day IUP without obvious abnormality According to her recent ultrasound, estimated gestational age today 18 weeks 6 days MD Complaint: abdominal pain -: Gradual, week(s) (1 week) Location: LLQ, RLQ, suprapubic Radiation: none Migration to: no migration Severity scale (0 -10): 10 Quality: cramping Consistency: intermittent Improves With: nothing Worsens With: nothing Associated Symptoms: nausea, vomiting - Related Data Home Medications Medication Instructions Recorded Confirmed Last Taken Pnv with Ca,No.72/Iron/FA 1 tab PO DAILY 09/17/14 12/28/20 Unknown [ Plus Tablet] Previous Rx's Medication Instructions Recorded Last Taken Type Doxylamine Succinate/Vit B6 1 each PO QHS PRN #30 tablet. 01/27/21 Unknown Rx [Bruce Arce 10-10 mg Tablet] Marlen Root [Marlen] 250 mg PO Q6HR PRN #30 capsule 01/27/21 Unknown Rx NIFEdipine [Nifedipine] 10 mg PO Q6H PRN #30 capsule 01/27/21 Unknown Rx Metoclopramide [Reglan] 10 mg PO Q6HR PRN #30 tablet 01/30/21 Unknown Rx Promethazine [Phenergan] 25 mg PO Q6HR PRN #30 tab 01/30/21 Unknown Rx Allergies Allergy/AdvReac Type Severity Reaction Status Date / Time Iodinated Contrast Media AdvReac Swelling Verified 02/01/21 08:44 ED Review of Systems ROS: Stated complaint: 19WKS PREG/LOW ABD PAIN/NO BLEEDING Other details as noted in HPI Comment: All other systems reviewed and negative Constitutional: denies: chills, fever, malaise Respiratory: denies: cough, shortness of breath Cardiovascular: denies: chest pain Gastrointestinal: abdominal pain, nausea, vomiting. denies: diarrhea ED Past Medical Hx - Past Medical History Previous Medical History?: Yes Hx Hypertension: No Hx Heart Attack/AMI: No Hx Congestive Heart Failure: No Hx Diabetes: No Hx Deep Vein Thrombosis: No Hx Liver Disease: No Hx Renal Disease: No Hx Sickle Cell Disease: No Hx Seizures: No Hx Psychiatric Treatment: No Hx Asthma: No Hx COPD: No Hx HIV: No Additional medical history: Low BP - Surgical History Past Surgical History?: Yes Additional Surgical History: D&C - Social History Smoking Status: Never Smoker Substance Use Type: Marijuana - Medications Home Medications: Home Medications Medication Instructions Recorded Confirmed Last Taken Type Pnv with Ca,No.72/Iron/FA 1 tab PO DAILY 09/17/15 12/28/20 Unknown History [ Plus Tablet] Doxylamine Succinate/Vit B6 1 each PO QHS PRN #30 tablet. 01/27/21 Unknown Rx [Diclegis Dr 10-10 mg Tablet] Marlen Root [Marlen] 250 mg PO Q6HR PRN #30 capsule 01/27/21 Unknown Rx NIFEdipine [Nifedipine] 10 mg PO Q6H PRN #30 capsule 01/27/21 Unknown Rx Metoclopramide [Reglan] 10 mg PO Q6HR PRN #30 tablet 01/30/21 Unknown Rx Promethazine [Phenergan] 25 mg PO Q6HR PRN #30 tab 01/30/21 Unknown Rx ED Physical Exam - General Limitations: Physical Limitation General appearance: alert, in no apparent distress, anxious, other (Restless agitated anxious) - Head Head exam: Present: atraumatic, normocephalic - Eye Eye exam: Present: normal appearance - ENT ENT exam: Present: mucous membranes moist - Neck Neck exam: Present: normal inspection - Respiratory Respiratory exam: Present: normal lung sounds bilaterally. Absent: respiratory distress, wheezes, rales, rhonchi - Cardiovascular Cardiovascular Exam: Present: regular rate, normal rhythm, normal heart sounds. Absent: systolic murmur, diastolic murmur, rubs, gallop - GI/Abdominal GI/Abdominal exam: Present: soft, normal bowel sounds. Absent: distended, tenderness, guarding, rebound - Back Exam Back exam: Present: normal inspection - Neurological Exam Neurological exam: Present: alert, oriented X3 - Psychiatric Psychiatric exam: Present: normal affect, agitated, anxious - Skin Skin exam: Present: warm, dry, intact, normal color. Absent: rash ED Course Vital Signs 02/01/21 02/01/21 02/01/21 09:45 10:07 10:41 Pulse Rate 122 H Respiratory 18 20 18 Rate Blood Pressure Blood Pressure 100/52 [Left] O2 Sat by Pulse 98 98 Oximetry 02/01/21 02/01/21 02/01/21 10:46 10:49 11:00 Pulse Rate 115 H 111 H 138 H Respiratory 20 18 43 H Rate Blood Pressure Blood Pressure 115/57 [Left] O2 Sat by Pulse 99 99 97 Oximetry 02/01/21 02/01/21 02/01/21 11:51 11:56 12:00 Pulse Rate 113 H 113 H Respiratory 20 22 23 Rate Blood Pressure 106/47 Blood Pressure 106/47 [Left] O2 Sat by Pulse 98 Oximetry 02/01/21 13:00 Pulse Rate 94 H Respiratory 19 Rate Blood Pressure 111/49 Blood Pressure [Left] O2 Sat by Pulse Oximetry ED Medical Decision Making - Lab Data Result diagrams: 02/01/21 09:44 02/01/21 09:44 - Radiology Data Radiology results: report reviewed MRI ABDOMEN WITHOUT CONTRAST INDICATION / CLINICAL INFORMATION: severe abdominal pain elevated white count Patient motion, repeated scans, best possible exam.. TECHNIQUE: Multiplanar, multisequence series were obtained through the abdomen. COMPARISON: CT 07/12/2018 FINDINGS: LOWER CHEST: Pleural-based consolidation in the medial left lung base may be an area of atelectasis. Infiltrate could have this appearance. Right lung base is clear. LIVER: No significant abnormality. GALLBLADDER: No significant abnormality. BILE DUCTS: No significant abnormality. PANCREAS: No significant abnormality. SPLEEN: No significant abnormality. ADRENALS: No significant abnormality. RIGHT KIDNEY / URETER: No significant abnormality. LEFT KIDNEY / URETER: No significant abnormality. STOMACH / VISUALIZED BOWEL: No significant abnormality. PERITONEUM: No free fluid. No free air. No fluid collection. LYMPH NODES: No significant adenopathy. AORTA / ARTERIES: No significant abnormality. IVC / VEINS: No significant abnormality. ADDITIONAL FINDINGS: None. SKELETAL SYSTEM: No significant abnormality. IMPRESSION: 1. No significant abnormality in the abdomen. 2. Focal consolidation medial left lung base could be due to pneumonia or atelectasis. MRI PELVIS WITHOUT CONTRAST INDICATION / CLINICAL INFORMATION: severe abdominal pain elevated white count Patient motion, repeated scans, best possible exam.. [facility] [address], [address] [place] [address] P [phone] F [phone] [facility] - Report exported on Feb 01, 2021 14:18:19 -0500 - Page 2 of 2 TECHNIQUE: Multiplanar, multisequence series were obtained through the pelvis. COMPARISON: CT 07/12/2018 FINDINGS: BOWEL: No significant abnormality. APPENDIX: Not visualized. PERITONEUM: No free fluid. No free air. No fluid collection. LYMPH NODES: No significant adenopathy. ARTERIES: No significant abnormality. VEINS: No significant abnormality. URINARY BLADDER: No significant abnormality. REPRODUCTIVE ORGANS: Gravid uterus is noted. No placental or abnormalities. ADDITIONAL FINDINGS: None. SKELETAL SYSTEM: No significant abnormality. IMPRESSION: 1. No acute findings. The appendix is not visualized; no inflammatory changes are seen in the pericecal right abdomen. Signer Name: Truong Lei MD Signed: 02/01/2021 1:46 PM Workstation Name: [id number] - Medical Decision Making Severe recurrent abdominal pain second trimester . MRI did not reveal any acute intra-abdominal pelvic pathology. Patient has pain level 0/10. She does not have any abdominal tenderness on reexamination. I have low suspicion for appendicitis. Upon discharge, patient informed me that she was transported per EMS from [facility] to [facility]. She had a CT scan performed. She does not know the results. MRI head obtained due to worsening leukocytosis elevated white blood cell count. Patient presents to walk-in tomorrow to her [facility]. She explains that she tends to have severe abdominal pain during due to alpha thal assemia. She is discharged home. Patient has home health care plan to treat hyperemesis gravidarum with IV fluids in IV Zofran. Consolidation lung seen on MRI. Patient does not have fever cough shortness of breath to indicate pneumonia I suspect atelectasis. Critical care attestation.: If time is entered above; I have spent that time in minutes in the direct care of this critically ill patient, excluding procedure time. ED Disposition Clinical Impression: Abdominal pain during Disposition: HOME / SELF CARE / HOMELESS Is pt being admited?: No Does the pt Need Aspirin: No Condition: Stable Instructions: Abdominal Pain During Referrals: [facility] [Provider Group] - [place]
[2021-02-01 10:18] LABS: Alanine Aminotransferase 22 units/L (7-56); Blood Urea Nitrogen 5 mg/dL (7-17); Calcium 8.6 mg/dL (8.4-10.2); Hemolysis Index 15
[2021-02-01 10:21] LABS: BUN/Creatinine Ratio 13; Hematocrit 32.7 % (30.3-42.9); Hemoglobin 10.8 gm/dl (10.1-14.3); Mean Corpuscular HGB Conc 33 % (30-34); Mean Corpuscular Volume 86 fl (79-97); Platelet Count 233 K/mm3 (140-440); Red Blood Count 3.79 M/mm3 (3.65-5.03); Red Cell Distribution Width 13.5 % (13.2-15.2)
[2021-02-01] MEDS ORDERED: MORPHINE 4 MG/1 ML INJ IV ONE ×2 (10:38)
[2021-02-01] MEDS ORDERED: HYDROmorphone 1 MG/1 ML INJ IV ONE (11:25)
[2021-02-01 12:31] LABS: RBC Morphology Normal; Total Cells Counted 100
[2021-02-01 12:32] LABS: Platelet Estimate Consistent w Auto
--- NOTE | 2021-02-01 14:50 | Magnetic Resonance Report ---
MRI ABDOMEN WITHOUT CONTRAST INDICATION / CLINICAL INFORMATION: severe abdominal pain elevated white count Patient motion, repeate d scans, best possible exam.. TECHNIQUE: Multiplanar, multisequence series were obtained through the abdomen. COMPARISON: CT 07/12/2018 FINDINGS: LOWER CHEST: Pleural-based consolidation in the medial left lung base may be an area of atelectasis. Infiltrate could have this appearance. Right lung base is clear. LIVER: No significant abnormality. GALLBLADDER: No significant abnormality. BILE DUCTS: No significant abnormality. PANCREAS: No significant abnormality. SPLEEN: No significant abnormality. ADRENALS: No significant abnormality. RIGHT KIDNEY / URETER: No significant abnormality. LEFT KIDNEY / URETER: No significant abnormality. STOMACH / VISUALIZED BOWEL: No significant abnormality. PERITONEUM: No free fluid. No free air. No fluid collection. LYMPH NODES: No significant adenopathy. AORTA / ARTERIES: No significant abnormality. IVC / VEINS: No significant abnormality. ADDITIONAL FINDINGS: None. SKELETAL SYSTEM: No significant abnormality. IMPRESSION: 1. No significant abnormality in the abdomen. 2. Focal consolidation medial left lung base could be due to pneumonia or atelectasis. MRI PELVIS WITHOUT CONTRAST INDICATION / CLINICAL INFORMATION: severe abdominal pain elevated white count Patient motion, repeate d scans, best possible exam.. TECHNIQUE: Multiplanar, multisequence series were obtained through the pelvis. COMPARISON: CT 07/12/2018 FINDINGS: BOWEL: No significant abnormality. APPENDIX: Not visualized. PERITONEUM: No free fluid. No free air. No fluid collection. LYMPH NODES: No significant adenopathy. ARTERIES: No significant abnormality. VEINS: No significant abnormality. URINARY BLADDER: No significant abnormality. REPRODUCTIVE ORGANS: Gravid uterus is noted. No placental or abnormalities. ADDITIONAL FINDINGS: None. SKELETAL SYSTEM: No significant abnormality. IMPRESSION: 1. No acute findings. The appendix is not visualized; no inflammatory changes are seen in the pericec al right abdomen. Signer Name: Truong Lei MD Signed: 02/01/2021 2:46 PM Workstation Name: [email or web address]
[2021-02-01 16:02] VITALS: BP 110/58
== END 2021-02-01 16:01 | disposition home or self-care (01) ==
LOC: ED 08:35
DX: O26.892 Other specified pregnancy related conditions, second trimester (principal); Z3A.19 19 weeks gestation of pregnancy; R10.30 Lower abdominal pain, unspecified; I95.9 Hypotension, unspecified; Z98.890 Other specified postprocedural states; Z91.041 Radiographic dye allergy status
CPT/HCPCS: 36415; 72195; 74181; 80053; 83690; 85007; 85025; 96361; 96374; 96375; 96376; 99284; J2060; J2270; J2405; J7030; J1170

== ENCOUNTER 2021-02-02 15:25 | Emergency (ER) | payer OTHER ==
[2021-02-02] MEDS ORDERED: diphenhydrAMINE 50 MG/ML VIAL IV ONE ×2 (15:27→16:02)
[2021-02-02] MEDS ORDERED: FAMOTIDINE 20 MG/2 ML INJ IV ONE (15:27)
--- NOTE | 2021-02-02 15:27 | Emergency Department Report ---
ED Allergic Reaction HPI - General Stated complaint: SOB Time Seen by Provider: 02/02/21 15:26 - History of Present Illness Initial Comments: Patient presents as a possible allergic reaction. She had been seen earlier by the OB group. She is 20 weeks gestation and complained of abdominal pain. She was given morphine and states that she had told them that she was allergic to morphine. She states that she is also allergic to contrast. Despite reporting this, she states that she started having some tightness in her throat. She asked for ice. They did not give her any ice. They did not give her Benadryl. She still had ongoing symptoms and was subsequently discharged. Patient comes back here because she is having trouble breathing. She feels as though her throat is tight. She thinks that this is an allergic reaction to morphine. There is no other known allergen. She has not developed hives. There is no cough or congestion. - Related Data Home Medications Medication Instructions Recorded Confirmed Last Taken Pnv with Ca,No.72/Iron/FA 1 tab PO DAILY 09/17/14 12/28/20 Unknown [ Plus Tablet] Previous Rx's Medication Instructions Recorded Last Taken Type Doxylamine Succinate/Vit B6 1 each PO QHS PRN #30 tablet. 01/27/21 Unknown Rx [Bruce Arce 10-10 mg Tablet] Marlen Root [Marlen] 250 mg PO Q6HR PRN #30 capsule 01/27/21 Unknown Rx NIFEdipine [Nifedipine] 10 mg PO Q6H PRN #30 capsule 01/27/21 Unknown Rx Metoclopramide [Reglan] 10 mg PO Q6HR PRN #30 tablet 01/30/21 Unknown Rx Promethazine [Phenergan] 25 mg PO Q6HR PRN #30 tab 01/30/21 Unknown Rx Famotidine [Pepcid] 20 mg PO BID #10 tablet 02/02/21 Unknown Rx diphenhydrAMINE HCL [Sominex] 25 mg PO 4XD PRN #30 tablet 02/02/21 Unknown Rx Allergies Allergy/AdvReac Type Severity Reaction Status Date / Time Iodinated Contrast Media AdvReac Swelling Verified 02/01/21 08:44 ED Review of Systems ROS: Stated complaint: SOB Other details as noted in HPI Comment: All other systems reviewed and negative Constitutional: denies: fever Eyes: denies: vision change ENT: as per HPI Respiratory: denies: cough Cardiovascular: denies: chest pain Endocrine: denies: unexplained weight loss Gastrointestinal: denies: vomiting, diarrhea Genitourinary: denies: dysuria Musculoskeletal: denies: joint swelling Skin: denies: rash Neurological: denies: headache Hematological/Lymphatic: denies: swollen glands ED Past Medical Hx - Past Medical History Hx Hypertension: No Hx Heart Attack/AMI: No Hx Congestive Heart Failure: No Hx Diabetes: No Hx Deep Vein Thrombosis: No Hx Liver Disease: No Hx Renal Disease: No Hx Sickle Cell Disease: No Hx Seizures: No Hx Psychiatric Treatment: No Hx Asthma: No Hx COPD: No Hx HIV: No Additional medical history: Low BP - Surgical History Additional Surgical History: D&C - Family History Family history: no significant - Social History Smoking Status: Never Smoker - Medications Home Medications: Home Medications Medication Instructions Recorded Confirmed Last Taken Type Pnv with Ca,No.72/Iron/FA 1 tab PO DAILY 09/17/14 12/28/20 Unknown History [ Plus Tablet] Doxylamine Succinate/Vit B6 1 each PO QHS PRN #30 tablet.dr 01/27/21 Unknown Rx [Dicwens Dr 10-10 mg Tablet] Marlen Root [Marlen] 250 mg PO Q6HR PRN #30 capsule 01/27/21 Unknown Rx NIFEdipine [Nifedipine] 10 mg PO Q6H PRN #30 capsule 01/27/21 Unknown Rx Metoclopramide [Reglan] 10 mg PO Q6HR PRN #30 tablet 01/30/21 Unknown Rx Promethazine [Phenergan] 25 mg PO Q6HR PRN #30 tab 01/30/21 Unknown Rx Famotidine [Pepcid] 20 mg PO BID #10 tablet 02/02/21 Unknown Rx diphenhydrAMINE HCL [Sominex] 25 mg PO 4XD PRN #30 tablet 02/02/21 Unknown Rx ED Physical Exam - General Limitations: Other ( Pulse ox was noted and normal) General appearance: alert, in distress ( moderate) - Head Head exam: Present: atraumatic, normocephalic, normal inspection - Eye Eye exam: Present: normal appearance, EOMI. Absent: scleral icterus - ENT ENT exam: Present: normal exam, normal orophraynx, mucous membranes moist, normal external ear exam - Neck Neck exam: Present: normal inspection. Absent: meningismus - Respiratory Respiratory exam: Present: normal lung sounds bilaterally. Absent: respiratory distress - Cardiovascular Cardiovascular Exam: Present: regular rate, normal rhythm - GI/Abdominal GI/Abdominal exam: Present: soft, distended - Extremities Exam Extremities exam: Absent: normal capillary refill - Back Exam Back exam: Absent: CVA tenderness (R), CVA tenderness (L) - Neurological Exam Neurological exam: Present: alert, oriented X3, CN II-XII intact. Absent: motor sensory deficit - Psychiatric Psychiatric exam: Present: anxious, other ( Patient is moaning and rocking back and forth pointing to her throat. She has a dramatic affect.) - Skin Skin exam: Present: warm, dry ED Course Vital Signs 02/02/21 15:32 Temperature 99.0 F Pulse Rate 85 Respiratory 16 Rate Blood Pressure 158/117 [Right] O2 Sat by Pulse 98 Oximetry - Reevaluation(s) Reevaluation #1: 02/02/21 15:50 patient had been seen upon presentation upfront in the triage area. She was complaining of throat tightness and medications were ordered. ED Medical Decision Making - Medical Decision Making Patient reports an allergic reaction to morphine. She had not listed morphine based on my review of old records as an allergy. She had complained of throat tightness. There was no hives. There is no angioedema. She had no hoarse phonation. There was no stridor. She was given Benadryl and Pepcid. This improved her symptoms. She was subsequently discharged with outpatient follow- up. I do not believe this represents any type of infectious pathology. She had already been seen earlier for the abdominal pain and cleared by BARBEC[facility] COOK. Regardless, at 20 weeks gestation she would be previable. Critical Care Time: No Critical care attestation.: If time is entered above; I have spent that time in minutes in the direct care of this critically ill patient, excluding procedure time. ED Disposition Clinical Impression: Throat tightness Disposition: 01 HOME / SELF CARE / HOMELESS Is pt being admited?: No Condition: Stable Additional Instructions: Use Benadryl and Pepcid. Drink plenty of water. Return for problems. Follow- up with your regular doctor for further management. Prescriptions: Famotidine [Pepcid] 20 mg PO BID #10 tablet diphenhydrAMINE HCL [Sominex] 25 mg PO 4XD PRN #30 tablet PRN Reason: Allergy Symptoms
[2021-02-02 15:33] VITALS: BP 158/117
== END 2021-02-02 17:40 | disposition home or self-care (01) ==
LOC: ED 15:25
DX: O26.892 Other specified pregnancy related conditions, second trimester (principal); R09.89 Other specified symptoms and signs involving the circulatory and respiratory systems; Z3A.20 20 weeks gestation of pregnancy
CPT/HCPCS: 59025; 80307; 81001; 96360; 96365; 96374; 96375; 96376; 99283; J0690; J1200; J2060; J2270; J7120

== ENCOUNTER 2021-02-11 15:55 | Inpatient (IN) | payer OTHER ==
--- NOTE | 2021-02-11 17:03 | Ultrasound Report ---
ULTRASOUND BIOPHYSICAL PROFILE INDICATION / CLINICAL INFORMATION: WELLBEING. Clinical Gestational Age (GA) in weeks, days: 20 weeks 2 days TECHNIQUE: Transabdominal. COMPARISON: None available. FINDINGS: BREATHING MOVEMENT = 0 GROSS BODY MOVEMENT = 2 TONE = 2 QUALITATIVE AMNIOTIC FLUID VOLUME = 2 TOTAL BIOPHYSICAL SCORE = 6/8 HEART RATE (beats per minute): 142 IMPRESSION: 1. Biophysical Score = 6/8 0 points were given for absence of breathing movements Signer Name: Ebony Machuca MD Signed: 02/11/2021 4:59 PM Workstation Name: [id number]
[2021-02-11] MEDS ORDERED: LACTATED RINGERS 1,000 ML IV ONE ×2 (17:46→19:18)
[2021-02-11] MEDS ORDERED: diphenhydrAMINE 50 MG/ML VIAL IV ONE (18:03)
[2021-02-11 19:21] LABS: Basophils % (Auto) 0.2 % (0.0-1.8); Eosinophils % (Auto) 0.1 % (0.0-4.3); Hematocrit 28.8 % (30.3-42.9); Hemoglobin 10.1 gm/dl (10.1-14.3); Lymphocytes # (Auto) 1.2 K/mm3 (1.2-5.4); Lymphocytes % (Auto) 6.7 % (13.4-35.0); Mean Corpuscular HGB Conc 35 % (30-34); Mean Corpuscular Volume 86 fl (79-97); Monocytes % (Auto) 5.4 % (0.0-7.3); Platelet Count 312 K/mm3 (140-440); Red Blood Count 3.35 M/mm3 (3.65-5.03); Red Cell Distribution Width 14.1 % (13.2-15.2)
[2021-02-11 19:24] LABS: Alanine Aminotransferase 30 units/L (7-56); Albumin 3.4 g/dL (3.9-5); Blood Urea Nitrogen 4 mg/dL (7-17); Calcium 8.5 mg/dL (8.4-10.2); Hemolysis Index 36
[2021-02-11 19:30] LABS: Amphetamine Screen,Urine Negative; Benzodiazepines Screen,Urine Negative; Cocaine Screen,Urine Negative; Methadone Screen,Urine Negative; Opiate Screen,Urine Negative
[2021-02-11 19:33] LABS: BUN/Creatinine Ratio 13
--- NOTE | 2021-02-11 19:39 | Event Note ---
Date: 02/11/21 pt called me via answering service concerning a complaint of constipation and no meds are working. pt instructed to come to triage. When pt came she was just writhing voluntarily in bed demanding pain med. KUB ordered for pt however pt will not stay still stating she was constipated. Pelvic exam done by me after ultrasound reassuring by radiologist for 20wks preg. Cervix closed, thick and high. No stool palpated in rectal vault. Pt asked to lie still and call her support group, her mother and she placed her on speaker phone stating verbally abusive language concerning me and not giving her pain med. Mother of pt asked by me to come to the hospital because pt should be evaluated by hospitalist concerning non-obstetric issues. Mother of pt states she will come. IV fluid hydration given and straight cath urine 100cc concentrated urine obtained and sent for analysis and drug screen. Pt already received 1liter of fluid and will give ancef IV for presumed possible UTI. Will do renal ultrasound to evaluate for kidney stones if hematuria seen on dip. No narcotics will be given until evaluated by hospitalist.
[2021-02-11 19:43] LABS: Bilirubin,Urine NEG (Negative); Blood,Urine NEG (Negative); Color,Urine Yellow (Yellow); Mucus,Urine 1+ /HPF; Urobilinogen,Urine < 2.0 mg/dL (<2.0)
[2021-02-11 19:48] LABS: Cannabinoid Screen,Urine Positive
[2021-02-11] MEDS ORDERED: fentaNYL 100 MCG/2 ML INJ ONE (20:27)
[2021-02-11] MEDS ORDERED: fentaNYL 100 MCG/2 ML INJ IV ONE (20:28)
--- NOTE | 2021-02-11 20:36 | XRay Report ---
ABDOMEN 1 VIEW(S) INDICATION / CLINICAL INFORMATION: pt complaint of constipation. COMPARISON: None available. FINDINGS: TUBES / LINES: None. BOWEL GAS PATTERN: There is mild gaseous distention of the stomach. No dilated loops of small or larg e bowel are seen. FREE AIR / EXTRALUMINAL GAS: None seen. ADDITIONAL FINDINGS: No significant additional findings. IMPRESSION: 1. No radiographic evidence of acute abdomen. Colon is not dilated; fecal material is seen within the distal half of the colon which is normal in caliber. Signer Name: Truong Lei MD Signed: 02/11/2021 8:31 PM Workstation Name: [id number]
--- NOTE | 2021-02-11 21:15 | Ultrasound Report ---
ULTRASOUND ABDOMEN, LIMITED (RIGHT UPPER QUADRANT) INDICATION: Right upper quadrant - gall bladder. COMPARISON: None available. FINDINGS: Pancreas: Visualized portion shows no significant abnormality. Liver: Normal. Gallbladder: Sludge and sand like stones are noted in the gallbladder. There is no gallbladder wall t hickening or pericholecystic fluid. Bile ducts: Normal. Common Bile Duct was not visualized. Free fluid: None. Additional Findings: None. IMPRESSION: 1. Gallbladder sludge and sand like stones are noted. There was a positive sonographic Lance sign. T hese findings can be seen in the setting of acute sclerosis situs. However, no gallbladder wall thick ening or pericholecystic fluid is seen. Signer Name: Truong Lei MD Signed: 02/11/2021 9:11 PM Workstation Name: [id number]
[2021-02-11] MEDS ORDERED: PANTOPRAZOLE 40 MG INJ IV ONE (21:22)
[2021-02-11] MEDS ORDERED: MORPHINE 2 MG/1 ML INJ IV ONE (23:14)
--- NOTE | 2021-02-11 23:48 | History and Physical Report ---
History of Present Illness Date of examination: 02/11/21 Date of admission: 02/11/21 Chief complaint: abdominal pain and constipation History of present illness: at 21.5wks by pt's report however report later obtained here has EDC 06/29/21 therefore IUP really at 20.3wks. records not available from [facility]. Pt after prolong monitoring in triage noted to have contractions every 1-2mins and pelvic exam closed by me. Pt states that she too k an enema, Mag citrate and mineral oil and her constipation is not relieved. Pt laments that she does not like this hospital and she is not crazy. Pt denies vag bleed or leakage of fluid. Pt also c/o nausea. Mother of pt when she came states that pt has used marijuana in the past and same was done about 2wks ago and no longer in her system. Mother of pt also desires that pt get her tubes tied after this baby because it is too much for her. Past History Past Medical History: other (constipation) Past Surgical History: no surgical history Social history: other (pt does not admit, however + marijuana use) - Obstetrical History Expected Date of Delivery: 06/29/21 Actual Gestation: 20 Week(s) 3 Day(s) : 7 Hx # Term Pregnancies: 3 Spontaneous Abortions: 2 Induced : 1 Number of Living Children: 3 Medications and Allergies Allergies Allergy/AdvReac Type Severity Reaction Status Date / Time No Known Allergies Allergy Unverified 02/12/21 05:45 Review of Systems All systems: negative (pt constantly moving with all extremities and able to stop sometimes to answer a question) - Vital Signs Vital signs: Vital Signs Pulse BP 120 H 126/68 02/11/21 19:00 02/11/21 19:00 Temp Pulse Resp BP Pulse Ox 120 H 126/68 02/11/21 19:00 02/11/21 19:00 - Physical Exam Breasts: Positive: deferred Cardiovascular: Regular rate Lungs: Positive: Normal air movement Abdomen: Positive: normal appearance, soft Genitourinary (Female): Positive: normal external genitalia Vagina: Positive: normal moisture Uterus: Positive: enlarged (non-tender gravid ) Extremities: Positive: normal (pt continuously moving all extremities) - Obstetrical Cervical Dilatation: 0 Cervical Effacement Percentage: 0 station: -4 Uterine Contraction Pattern: Regular Results Result Diagrams: 02/11/21 18:30 02/11/21 18:30 Abnormal lab results 02/11/21 02/11/21 Range/Units 18:30 18:30 WBC 18.2 H (4.5-11.0) K/mm3 RBC 3.35 L (3.65-5.03) M/mm3 Hct 28.8 L (30.3-42.9) % MCHC 35 H (30-34) % Lymph % (Auto) 6.7 L (13.4-35.0) % [place] # (Auto) 1.0 H (0.0-0.8) K/mm3 Seg Neutrophils % 87.6 H (40.0-70.0) % Seg Neutrophils # 15.9 H (1.8-7.7) K/mm3 Sodium 135 L (137-145) mmol/L Potassium 3.1 L (3.6-5.0) mmol/L Carbon Dioxide 18 L (22-30) mmol/L BUN 4 L (7-17) mg/dL Creatinine 0.3 L (0.6-1.2) mg/dL Albumin 3.4 L (3.9-5) g/dL All other labs normal. Assessment and Plan Extreme premature at 20.3wks with gall stones, c/o abd pain, leucocytosis and non-acute abdomen, substance abuse and verbally abusive to providers; Unclear if psychosocial behavioral issues present; KUB normal non-dilated colon with fecal material in distal half and normal caliber as expected. Abd u/sound wih gallbladder sludge and sand like stones and positive macias sign 1. Very lengthy discussion with pt and benadryl given so that pt could have ultrasound evaluation; Fentanyl given for pain without any effect, pt report 2. Consult done to hospitalist Dr. Sean Fields who evaluated and see no acute process for pt's symptoms. He explained to patient that the sludge on gallbladder ultrasound that I ordered was most likely not the cause of her pain. He told her after pt spoke to him in a derogatory manner, he will consult general surgery to evaluate her 3. Pt given 1 dose of ancef, but I will change same to ceftriaxone daily and IV hydration with large ketones seen 4. Urine drug screen is positive for marijuana 5. Pt desires tocolysis with her current contractions. Will consult [facility], for now will treat with nubain prn pain with non-acute abdomen; No tocolysis for extremely premature will be done 6. Renal ultrasound not done with no hematuria seen and pt denies back pain. 7. CMP and CBC labs seen. Will add Covid test to am labs per routine per admission at the hospital 8. Consult [facility] with current pt symptoms and any additional plan of care 9. Will consult psychiatry with possible co-morbid issues and verbal outburts All questions encouraged and answered. Will keep pt NPO for now. Will obtain records when clinic is open next week if pt remains
[2021-02-12] MEDS ORDERED: NalbUPHINE 10 MG/1 ML INJ ONE (00:10)
[2021-02-12] MEDS ORDERED: LACTATED RINGERS 1,000 ML ONE ×3 (00:11→08:48)
[2021-02-12] MEDS: NalbUPHINE 10 MG/1 ML INJ IV PRN ×5 (00:32→23:22)
[2021-02-12] MEDS: cefTRIAXone/NS 1 GM/50 ML 1 GM/50 ML BAG IV SCH (01:52)
--- NOTE | 2021-02-12 07:13 | Consultation ---
History of Present Illness - Reason for Consult Consult date: 02/11/21 Medical management Requesting physician: NATASHA HOWELL - History of Present Illness 30-year-old female who is currently 21 weeks who presented to the emergency room with complaints of abdominal pain, nausea and vomiting. The symptoms have been intermittent throughout the and before . Patient states she also experienced the symptoms with her several yea rs ago. She has been diagnosed with gallbladder stones in the past and states that with her last it was recommended that she undergo cholecystectomy after the was complete. The patient states that after she gave to her last child her symptoms slowly improved and therefore she did not seek surgical intervention. She states that her pain can be present in the epigastrium and then radiate to bilateral upper quadrants. She also complains of lower abdominal pain which is crampy in nature and is associated with constipation. She states that her pain can be brought on by greasy and fatty foods at times. Currently she has not had any symptom relief except for pain medications given to her during hospital admissions. She is afraid to eat due to episodes of nausea and vomiting which are nonbilious and nonbloody. She states that she can only tolerate clear liquids when she goes home and as soon as she starts to eat regular food she starts to experience pain nausea and vomiting. No fevers but she does admit to chills. Patient states she had an outpatient GI evaluation many years ago during which time she was going to be scheduled for colonoscopy due to her family history of colon cancer, however this was postponed due to a . Pain is currently controlled due to recent administration of pain meds. Past History Social history: other (pt does not admit, however + marijuana use) Medications and Allergies Allergies Allergy/AdvReac Type Severity Reaction Status Date / Time No Known Allergies Allergy Unverified 02/12/21 05:45 Home Medications Medication Instructions Recorded Confirmed Last Taken Type Acetaminophen [Acetaminophen TAB] 650 mg PO Q4H PRN #90 tablet 02/17/21 Unknown Rx Docusate Sodium [Colace] 100 mg PO BID PRN #60 capsule 02/17/21 Unknown Rx Hyoscyamine Subl [Levsin Sl 0.125 0.125 mg SL Q4H #120 tablet 02/17/21 Unknown Rx TAB] Ondansetron [Zofran ODT TAB] 8 mg PO Q8H PRN #90 tab.rapdis 02/17/21 Unknown Rx Promethazine [Phenergan SUPPOS] 25 mg HI Q6H PRN #90 supp.rect 02/17/21 Unknown Rx Sertraline [Zoloft] 25 mg PO QDAY #30 tablet 02/17/21 Unknown Rx oxyCODONE /ACETAMINOPHEN [Percocet 2 tab PO Q6H PRN #20 tablet 02/17/21 Unknown Rx 5/325 mg] Active Meds: Active Medications Ceftriaxone Sodium (Rocephin/Ns 1 Gm/50 Ml) 1 gm in 50 mls @ 100 mls/hr IV Q24H ALLAN; Protocol Last Admin: 02/12/21 01:52 Dose: 100 mls/hr Documented by: Nalbuphine HCl (Nalbuphine 10 Mg/1 Ml Inj) 10 mg IV Q3H PRN PRN Reason: Pain, Moderate (4-6) Last Admin: 02/12/21 05:45 Dose: 10 mg Documented by: Ondansetron HCl (Ondansetron 4 Mg/2 Ml Inj) 4 mg IV Q4H PRN PRN Reason: Nausea And Vomiting Review of Systems All systems: negative Exam - Constitutional Vitals: Temp Pulse Resp BP Pulse Ox 98.6 F 94 H 97/51 98 02/12/21 03:45 02/12/21 07:07 02/12/21 00:36 02/12/21 07:07 General appearance: Present: no acute distress, well-nourished - EENT Eyes: Present: PERRL ENT: hearing intact, clear oral mucosa - Neck Neck: Present: supple, normal ROM - Respiratory Respiratory effort: normal Respiratory: bilateral: CTA - Cardiovascular Heart Sounds: Present: S1 & S2. Absent: rub, click - Extremities Extremities: pulses symmetrical, No edema Peripheral Pulses: within normal limits - Abdominal General gastrointestinal: Present: soft, non-tender, non-distended, normal bowel sounds Female genitourinary: Present: normal - Integumentary Integumentary: Present: clear, warm, dry - Musculoskeletal Musculoskeletal: gait normal, strength equal bilaterally - Psychiatric Psychiatric: appropriate mood/affect, intact judgment & insight - Neurologic Neurologic: CNII-XII intact, moves all extremities Results - Labs CBC & Chem 7: 02/13/21 23:02 02/14/21 07:30 Labs: Abnormal lab results 02/11/21 02/11/21 Range/Units 18:30 18:30 WBC 18.2 H (4.5-11.0) K/mm3 RBC 3.35 L (3.65-5.03) M/mm3 Hct 28.8 L (30.3-42.9) % MCHC 35 H (30-34) % Lymph % (Auto) 6.7 L (13.4-35.0) % [place] # (Auto) 1.0 H (0.0-0.8) K/mm3 Seg Neutrophils % 87.6 H (40.0-70.0) % Seg Neutrophils # 15.9 H (1.8-7.7) K/mm3 Sodium 135 L (137-145) mmol/L Potassium 3.1 L (3.6-5.0) mmol/L Carbon Dioxide 18 L (22-30) mmol/L BUN 4 L (7-17) mg/dL Creatinine 0.3 L (0.6-1.2) mg/dL Albumin 3.4 L (3.9-5) g/dL Assessment and Plan - Patient Problems (1) Gall bladder disease Status: Acute Plan to address problem: Symptomatic cholelithiasis Surgery consult requested (2) Cholelithiasis Status: Chronic Qualifiers: Cholelithiasis location: gallbladder Cholecystitis presence: without cholecystitis Plan to address problem: Patient not a candidate for surgery Surgery consult requested for second opinion
--- NOTE | 2021-02-12 07:19 | Progress Note ---
Assessment and Plan IUP at 21.6wks with gall stones, abd pain controlled with nubain; substance abuse 1. Await general surgery consult today 2. Appreciate hospitalist 3. [facility] order placed 4. U/S for anatomy ordered, however radiology personnel states pt had same 2wks ago and I await that official report 5. Continue IV fluids, rocephin with leucocytosis and nubain prn pain 6. All questions encouraged and answered. Need official records from [facility] when clinic opens tomorrow. Subjective Date of service: 02/12/21 Principal diagnosis: IUP at 21.6wks with abd pain, gall stones, substance abuse Interval history: Pt admits to feeling better this am. pt has remained NPO awaiting surgical consult this am. pt has better mood today and is not verbally abusive. Pt states that her pain is controlled with IV pain med. Nurse states pt received IV nubain twice during the night for pain control. Denies nausea or vomiting. Pt is voiding well in the bathroom. Objective - Constitutional Vitals: Vital Signs - 12hr 02/12/21 02/12/21 02/12/21 00:36 00:39 00:40 Temperature Pulse Rate 86 95 H Blood Pressure 97/51 O2 Sat by Pulse 86 97 Oximetry 02/12/21 02/12/21 02/12/21 00:45 00:50 00:54 Temperature Pulse Rate 98 H 101 H 90 Blood Pressure O2 Sat by Pulse 100 100 93 Oximetry 02/12/21 02/12/21 02/12/21 00:55 01:00 01:05 Temperature Pulse Rate 98 H 97 H 98 H Blood Pressure O2 Sat by Pulse 99 99 99 Oximetry 02/12/21 02/12/21 02/12/21 01:08 01:10 01:15 Temperature Pulse Rate 88 95 H 89 Blood Pressure O2 Sat by Pulse 91 100 94 Oximetry 02/12/21 02/12/21 02/12/21 01:20 01:25 01:39 Temperature Pulse Rate 88 93 H 95 H Blood Pressure O2 Sat by Pulse 99 99 100 Oximetry 02/12/21 02/12/21 02/12/21 01:44 01:49 01:54 Temperature Pulse Rate 85 85 81 Blood Pressure O2 Sat by Pulse 99 99 100 Oximetry 02/12/21 02/12/21 02/12/21 01:59 02:04 02:09 Temperature Pulse Rate 82 79 80 Blood Pressure O2 Sat by Pulse 100 99 100 Oximetry 02/12/21 02/12/21 02/12/21 02:14 02:15 02:19 Temperature Pulse Rate 87 87 84 Blood Pressure O2 Sat by Pulse 100 87 98 Oximetry 02/12/21 02/12/21 02/12/21 02:24 02:29 02:34 Temperature Pulse Rate 76 78 83 Blood Pressure O2 Sat by Pulse 99 99 99 Oximetry 02/12/21 02/12/21 02/12/21 02:39 02:44 02:49 Temperature Pulse Rate 78 76 78 Blood Pressure O2 Sat by Pulse 99 99 99 Oximetry 02/12/21 02/12/21 02/12/21 02:54 02:59 03:04 Temperature Pulse Rate 84 79 83 Blood Pressure O2 Sat by Pulse 99 98 99 Oximetry 02/12/21 02/12/21 02/12/21 03:09 03:14 03:19 Temperature Pulse Rate 78 79 80 Blood Pressure O2 Sat by Pulse 98 98 98 Oximetry 02/12/21 02/12/21 02/12/21 03:24 03:29 03:34 Temperature Pulse Rate 76 82 82 Blood Pressure O2 Sat by Pulse 99 98 99 Oximetry 02/12/21 02/12/21 02/12/21 03:39 03:44 03:45 Temperature 98.6 F Pulse Rate 82 79 Blood Pressure O2 Sat by Pulse 99 99 Oximetry 02/12/21 02/12/21 02/12/21 03:49 03:54 03:59 Temperature Pulse Rate 93 H 74 77 Blood Pressure O2 Sat by Pulse 99 97 99 Oximetry 02/12/21 02/12/21 02/12/21 04:04 04:09 04:14 Temperature Pulse Rate 76 78 76 Blood Pressure O2 Sat by Pulse 99 99 99 Oximetry 02/12/21 02/12/21 02/12/21 04:19 04:24 04:29 Temperature Pulse Rate 75 78 80 Blood Pressure O2 Sat by Pulse 99 99 99 Oximetry 02/12/21 02/12/21 02/12/21 04:34 04:39 04:44 Temperature Pulse Rate 76 83 80 Blood Pressure O2 Sat by Pulse 99 99 99 Oximetry 02/12/21 02/12/21 02/12/21 04:49 04:54 04:59 Temperature Pulse Rate 82 80 82 Blood Pressure O2 Sat by Pulse 99 99 99 Oximetry 02/12/21 02/12/21 02/12/21 05:04 05:09 05:14 Temperature Pulse Rate 77 90 84 Blood Pressure O2 Sat by Pulse 99 99 99 Oximetry 02/12/21 02/12/21 02/12/21 05:19 05:24 05:29 Temperature Pulse Rate 80 87 86 Blood Pressure O2 Sat by Pulse 99 100 99 Oximetry 02/12/21 02/12/21 02/12/21 05:34 05:39 05:44 Temperature Pulse Rate 97 H 81 82 Blood Pressure O2 Sat by Pulse 99 99 99 Oximetry 02/12/21 02/12/21 02/12/21 05:49 05:54 05:59 Temperature Pulse Rate 82 89 79 Blood Pressure O2 Sat by Pulse 99 98 98 Oximetry 02/12/21 02/12/21 02/12/21 06:04 06:09 06:14 Temperature Pulse Rate 78 79 76 Blood Pressure O2 Sat by Pulse 98 98 98 Oximetry 02/12/21 02/12/21 02/12/21 06:19 06:24 06:29 Temperature Pulse Rate 77 76 77 Blood Pressure O2 Sat by Pulse 98 98 98 Oximetry 02/12/21 02/12/21 02/12/21 06:34 06:39 06:44 Temperature Pulse Rate 76 77 76 Blood Pressure O2 Sat by Pulse 98 98 99 Oximetry 02/12/21 02/12/21 02/12/21 06:49 06:54 06:59 Temperature Pulse Rate 76 78 85 Blood Pressure O2 Sat by Pulse 98 98 99 Oximetry 02/12/21 02/12/21 02/12/21 07:07 07:12 07:17 Temperature Pulse Rate 94 H 79 78 Blood Pressure O2 Sat by Pulse 98 98 98 Oximetry General appearance: Present: no acute distress - Respiratory Respiratory effort: normal - Breasts Breasts: deferred - Cardiovascular Rhythm: regular Extremities: No edema - Gastrointestinal General gastrointestinal: Present: soft, non-tender - Neurologic Neurologic: moves all extremities - Psychiatric Psychiatric: cooperative (this morning) - Labs CBC & Chem 7: 02/11/21 18:30 02/11/21 18:30 Labs: Abnormal lab results 02/11/21 02/11/21 Range/Units 18:30 18:30 WBC 18.2 H (4.5-11.0) K/mm3 RBC 3.35 L (3.65-5.03) M/mm3 Hct 28.8 L (30.3-42.9) % MCHC 35 H (30-34) % Lymph % (Auto) 6.7 L (13.4-35.0) % [place] # (Auto) 1.0 H (0.0-0.8) K/mm3 Seg Neutrophils % 87.6 H (40.0-70.0) % Seg Neutrophils # 15.9 H (1.8-7.7) K/mm3 Sodium 135 L (137-145) mmol/L Potassium 3.1 L (3.6-5.0) mmol/L Carbon Dioxide 18 L (22-30) mmol/L BUN 4 L (7-17) mg/dL Creatinine 0.3 L (0.6-1.2) mg/dL Albumin 3.4 L (3.9-5) g/dL Medications & Allergies - Medications Allergies/Adverse Reactions: Allergies No Known Allergies Allergy (Unverified 02/12/21 05:45) Active Medications: Generic Name Dose Route Start Last Admin Trade Name Freq PRN Reason Stop Dose Admin Ceftriaxone Sodium 1 gm in 50 mls @ 100 mls/hr 02/12/21 01:00 02/12/21 01:52 Rocephin/Ns 1 Gm/50 Ml IV 100 mls/hr Q24H ALLAN Administration Protocol Nalbuphine HCl 10 mg 02/12/21 00:00 02/12/21 05:45 Nalbuphine 10 Mg/1 Ml Inj IV 10 mg Q3H PRN Administration Pain, Moderate (4-6) Ondansetron HCl 4 mg 02/12/21 00:07 Ondansetron 4 Mg/2 Ml Inj IV Q4H PRN Nausea And Vomiting
--- NOTE | 2021-02-12 08:37 | Event Note ---
Date: 02/12/21 consults done to [facility] Dr. Govea and amylase and lipase added to labs. Dr. Govea also agrees this is the right time if surgical mgt is needed to treat pt's gallstones. Await general surgeon to see pt later this am. Will also replete hypokalemia intravenously while pt NPO at this time. Additional consult did to psychiatry because nurse states that pt does not want this preg and refused FHR this morning.
[2021-02-12] MEDS ORDERED: LACTATED RINGERS 1,000 ML IV ONE (09:00)
[2021-02-12] MEDS ORDERED: POTASSIUM CHLORIDE 20 MEQ in LACTATED RINGERS 1,000 ML IV SCH (10:00)
--- NOTE | 2021-02-12 12:35 | Consultation ---
History of Present Illness - Reason for Consult Consult date: 02/12/21 Reason for consult: MHE - Chief Complaint Chief complaint: abdominal pain and constipation - History of Present Psychiatric Illness Racheal Persaud is a 30y/o female whom I evaluated today. The patient is lying in bed awake. Her spouse is at bedside. She gives me permission to speak in front of him. She is calm and cooperative. She says she got upset with the doctor because she felt like she was treating her like a statistic. She says the doctor didn't believe she was and insinuated that she was on drugs. The patient says she is in constant pain and feels like this is making her pain worse. She says she gets overwhelmed by the pain she is having and feels like nobody is trying to help her. She says she was diagnosed with anxiety and depression in the past. She was doing therapy and it was helping her. The patient denies SI/HI or ever feeling like she wants to hurt herself. She says "initially the pain made me want to have an , but it's too late for that now." She also denies wanting to hurt anyone else or any fear of endangerment. The patient denies hallucinations of any kind. She denies any illicit drug use, alcohol or nicotine. The patient says she would like to be on something for her feelings of being overwhelmed. PAST PSYCHIATRIC HISTORY: Diagnoses: Denies Suicide attempts or Self-harm behavior: Denies Prior psychiatric hospitalizations: Denies Substance Abuse history: Marijuana Previous psychiatric medications tried: Denies Outpatient treatment: Denies, therapy in the past PAST MEDICAL HISTORY: None reported or document Family Psychiatric History: None reported or documented SOCIAL HISTORY Marital Status: Living Arrangements: with spouse Employment Status: employed Access to guns/weapons: Denies Education: History of Abuse: denies Legal History: Denies REVIEW OF SYSTEMS Constitutional: Negative for weight loss ENT: Negative for stridor Respiratory: Negative for cough or hemoptysis All other systems reviewed and are negative MENTAL STATUS EXAMINATION General Appearance and Behavior: Age appropriate, good hygiene, wearing clement[place] ropriate clothes, calm, polite, cooperative Cooperation: Cooperative Psychomotor Behavior: Psychomotor normal Mood: okay Affect and affective range: Congruent with stated mood Thought Process: goal directed Thought Content: None Speech: Normal volume, Regular rate and rhythm, Suicidal Ideation: Denies Homicidal Ideation:Denies Hallucinations: Denies Delusions:Denies Impulse Control: Unimpaired Insight and Judgment: Limited Memory: Normal Attention: attentive Orientation: alert and oriented Assessment (1) Generalized Anxiety Disorder (2) Hx of Depression Treatment Plan Zoloft 25mg po daily The patient to comply with previously prescribed medications Risks, benefits and alternatives of medications discussed with the patient, questions answered and consent obtained from patient. PSYCHOTHERAPY: Supportive psychotherapy provided MEDICAL: Per primary team DELIRIUM PRECAUTIONS: Please re-orient patient frequently, keep lights on during the day, and minimize benzodiazepines and opiates as these medications could worsen patient's confusion. FINANCIAL SOLUTIONS ADVISOR: Defer to primary DISPOSITION: Do not recommend acute inpatient psychiatric hospitalization at this time. The patient to restart therapy and establish outpatient psychiatry for med management FOLLOW-UP: Will sing off. Thanks Case staffed with Dr. Vázquez Medications and Allergies Allergies Allergy/AdvReac Type Severity Reaction Status Date / Time No Known Allergies Allergy Unverified 02/12/21 05:45 Active Meds: Active Medications Ceftriaxone Sodium (Rocephin/Ns 1 Gm/50 Ml) 1 gm in 50 mls @ 100 mls/hr IV Q24H ALLAN; Protocol Last Admin: 02/12/21 01:52 Dose: 100 mls/hr Documented by: Potassium Chloride 20 meq/ (Lactated Ringer's) 1,010 mls @ 125 mls/hr IV DIRECT ALLAN Last Admin: 02/12/21 10:14 Dose: 125 mls/hr Documented by: Nalbuphine HCl (Nalbuphine 10 Mg/1 Ml Inj) 10 mg IV Q3H PRN PRN Reason: Pain, Moderate (4-6) Last Admin: 02/12/21 05:45 Dose: 10 mg Documented by: Ondansetron HCl (Ondansetron 4 Mg/2 Ml Inj) 4 mg IV Q4H PRN PRN Reason: Nausea And Vomiting Mental Status Exam - Vital signs Last Vital Signs Temp 98.4 F 02/12/21 11:46 Pulse 82 02/12/21 12:25 Resp 14 02/12/21 11:46 BP 101/55 02/12/21 11:53 Pulse Ox 100 02/12/21 12:25 Results Result Diagrams: 02/11/21 18:30 02/11/21 18:30 Abnormal lab results 02/11/21 02/11/21 02/12/21 Range/Units 18:30 18:30 10:22 WBC 18.2 H (4.5-11.0) K/mm3 RBC 3.35 L (3.65-5.03) M/mm3 Hct 28.8 L (30.3-42.9) % MCHC 35 H (30-34) % Lymph % (Auto) 6.7 L (13.4-35.0) % [place] # (Auto) 1.0 H (0.0-0.8) K/mm3 Seg Neutrophils % 87.6 H (40.0-70.0) % Seg Neutrophils # 15.9 H (1.8-7.7) K/mm3 Sodium 135 L (137-145) mmol/L Potassium 3.1 L (3.6-5.0) mmol/L Carbon Dioxide 18 L (22-30) mmol/L BUN 4 L (7-17) mg/dL Creatinine 0.3 L (0.6-1.2) mg/dL Albumin 3.4 L (3.9-5) g/dL Amylase 20 L (27-131) units/L Lipase 6 L (13-60) units/L All other labs normal.
[2021-02-12] MEDS ORDERED: ACETAMINOPHEN 325 MG TAB PO PRN (14:11)
--- NOTE | 2021-02-12 14:12 | Consultation ---
History of Present Illness Consult date: 02/12/21 Reason for consult: gallstones Chief complaint: Abdominal pain - History of present illness History of present illness: 30-year-old female who is currently 21 weeks who presented to the emergency room with complaints of abdominal pain, nausea and vomiting. The symptoms have been intermittent throughout the and before . Patient states she also experienced the symptoms with her several years ago. She has been diagnosed with gallbladder stones in the past and st ates that with her last it was recommended that she undergo cholecystectomy after the was complete. The patient states that after she gave to her last child her symptoms slowly improved and therefore she did not seek surgical intervention. She states that her pain can be present in the epigastrium and then radiate to bilateral upper quadrants. She also complains of lower abdominal pain which is crampy in nature and is associated with constipation. She states that her pain can be brought on by greasy and fatty foods at times. Currently she has not had any symptom relief except for pain medications given to her during hospital admissions. She is afraid to eat due to episodes of nausea and vomiting which are nonbilious and nonbloody. She states that she can only tolerate clear liquids when she goes home and as soon as she starts to eat regular food she starts to experience pain nausea and vomiting. No fevers but she does admit to chills. Patient states she had an outpatient GI evaluation many years ago during which time she was going to be scheduled for colonoscopy due to her family history of colon cancer, however this was postponed due to a . Pain is currently controlled due to recent administration of pain meds. Past History Past Medical History: No medical history Past Surgical History: No surgical history Social history: no significant social history, other (pt does not admit, however + marijuana use) Family history: cancer (Colon cancerfather), diabetes, hypertension Medications and Allergies Allergies Allergy/AdvReac Type Severity Reaction Status Date / Time No Known Allergies Allergy Unverified 02/12/21 05:45 Home Medications Medication Instructions Recorded Confirmed Last Taken Type Sertraline [Zoloft] 25 mg PO QDAY #30 tab 02/12/21 Unknown Rx Active Meds: Active Medications Ceftriaxone Sodium (Rocephin/Ns 1 Gm/50 Ml) 1 gm in 50 mls @ 100 mls/hr IV Q24H ALLAN; Protocol Last Admin: 02/12/21 01:52 Dose: 100 mls/hr Documented by: Potassium Chloride 20 meq/ (Lactated Ringer's) 1,010 mls @ 125 mls/hr IV DIRECT ALLAN Last Admin: 02/12/21 10:14 Dose: 125 mls/hr Documented by: Nalbuphine HCl (Nalbuphine 10 Mg/1 Ml Inj) 10 mg IV Q3H PRN PRN Reason: Pain, Moderate (4-6) Last Admin: 02/12/21 12:36 Dose: 10 mg Documented by: Ondansetron HCl (Ondansetron 4 Mg/2 Ml Inj) 4 mg IV Q4H PRN PRN Reason: Nausea And Vomiting Sertraline HCl (Sertraline 25 Mg Tab) 25 mg PO QDAY [facility] Review of Systems All systems: negative (10 point ROS performed and negative except for that listed in HPI) Exam Vital Signs Pulse BP 120 H 126/68 02/11/21 19:00 02/11/21 19:00 Narrative exam: Gen.: Awake, alert, oriented x3. No apparent distress ENT: Trachea midline. No lymphadenopathy. No scleral icterus or conjunctival pallor CV: S1, S2 present Respiratory: No audible wheezes Abdomen: Soft, nondistended, nontender. Positive gravid uterus with apex just below umbilicus. no rebound, rigidity, guarding Extremities: No clubbing, cyanosis, edema Results - Labs 02/11/21 18:30 02/11/21 18:30 Abnormal lab results 02/11/21 02/11/21 02/12/21 Range/Units 18:30 18:30 10:22 WBC 18.2 H (4.5-11.0) K/mm3 RBC 3.35 L (3.65-5.03) M/mm3 Hct 28.8 L (30.3-42.9) % MCHC 35 H (30-34) % Lymph % (Auto) 6.7 L (13.4-35.0) % [place] # (Auto) 1.0 H (0.0-0.8) K/mm3 Seg Neutrophils % 87.6 H (40.0-70.0) % Seg Neutrophils # 15.9 H (1.8-7.7) K/mm3 Sodium 135 L (137-145) mmol/L Potassium 3.1 L (3.6-5.0) mmol/L Carbon Dioxide 18 L (22-30) mmol/L BUN 4 L (7-17) mg/dL Creatinine 0.3 L (0.6-1.2) mg/dL Albumin 3.4 L (3.9-5) g/dL Amylase 20 L (27-131) units/L Lipase 6 L (13-60) units/L Diabetes panel 02/11/21 Range/Units 18:30 Sodium 135 L (137-145) mmol/L Potassium 3.1 L (3.6-5.0) mmol/L Chloride 99.9 (98-107) mmol/L Carbon Dioxide 18 L (22-30) mmol/L BUN 4 L (7-17) mg/dL Creatinine 0.3 L (0.6-1.2) mg/dL Glucose 67 (65-100) mg/dL Calcium 8.5 (8.4-10.2) mg/dL AST 34 (5-40) units/L ALT 30 (7-56) units/L Alkaline Phosphatase 74 (35-129) units/L Total Protein 6.4 (6.3-8.2) g/dL Albumin 3.4 L (3.9-5) g/dL Calcium panel 02/11/21 Range/Units 18:30 Calcium 8.5 (8.4-10.2) mg/dL Albumin 3.4 L (3.9-5) g/dL Pituitary panel 02/11/21 Range/Units 18:30 Sodium 135 L (137-145) mmol/L Potassium 3.1 L (3.6-5.0) mmol/L Chloride 99.9 (98-107) mmol/L Carbon Dioxide 18 L (22-30) mmol/L BUN 4 L (7-17) mg/dL Creatinine 0.3 L (0.6-1.2) mg/dL Glucose 67 (65-100) mg/dL Calcium 8.5 (8.4-10.2) mg/dL Adrenal panel 02/11/21 Range/Units 18:30 Sodium 135 L (137-145) mmol/L Potassium 3.1 L (3.6-5.0) mmol/L Chloride 99.9 (98-107) mmol/L Carbon Dioxide 18 L (22-30) mmol/L BUN 4 L (7-17) mg/dL Creatinine 0.3 L (0.6-1.2) mg/dL Glucose 67 (65-100) mg/dL Calcium 8.5 (8.4-10.2) mg/dL Total Bilirubin 0.70 (0.1-1.2) mg/dL AST 34 (5-40) units/L ALT 30 (7-56) units/L Alkaline Phosphatase 74 (35-129) units/L Total Protein 6.4 (6.3-8.2) g/dL Albumin 3.4 L (3.9-5) g/dL - Imaging Abdominal x-ray: report reviewed, image reviewed CT scan - abdomen: report reviewed, image reviewed (07/2018) CT scan - pelvis: report reviewed, image reviewed (07/2018) US - abdomen: report reviewed (compared to prior u/s from 2014), image reviewed Additional studies: MRI abd/pelvis 01/2021 Assessment and Plan 30-year-old female with abdominal pain, likely multifactorial secondary to 1. Symptomatic cholelithiasis 2. 3. Constipation Plan: 1. Reg diet 2. prn pain and nausea control 3. gentle IVF 4. bowel regimen 5. I believe symptoms are partially secondary to gallbladder pathology based on patient's history and u/s results. Discussed cholecystectomy with patient and explained to patient that surgery is not urgent or emergent. Explained that there could be a risk to the fetus from anesthesia administered during the surgery. Also explained all risks, benefits, alternatives associated with cholecystectomy including but not limited to infection, bleeding, injury to surrounding structures, bile leak, conversion to open surgery. Patient describes her symptoms as limiting the functions of her everyday life, stating that she cannot eat or drink and has made multiple trips to the emergency room secondary to the symptoms. She does not want to defer surgery to after and wants to proceed with cholecystectomy. Explained to the patient that all of her symptoms may not be relieved after cholecystectomy as they may be partially related to the and chronic constipation. She unders tands. All questions answered. Will check with OR in the a.m. and determine next available date/time for surgery. 6. preop covid test requested Thank you for this consultation. Please call with any questions or concerns. Evaluation and treatment of this patient was during the time of the national and state emergency arising from COVID19 coronavirus pandemic. Treatment and procedures performed meet the current and available best practice and guidelines for patient during the COVID pandemic.
[2021-02-12] MEDS: ONDANSETRON 4 MG/2 ML INJ IV PRN (17:24)
--- NOTE | 2021-02-12 19:43 | Progress Note ---
Assessment and Plan Assessment and plan: --Abdominal pain; Probably due to gallbladder/gallstone disease Antiemetics, pain medications, IV fluids if needed --Gallstones/gallbladder sludge Surgery evaluated the patient Planning cholecystectomy in 2 to 3 days Continue current management --Constipation; Plenty oral fluids, stool softeners, bowel regimen --; management per CARDIAC MONITOR Closely monitor patient and adjust management as needed Thank you for the consultation we will follow the patient along with you Call us with questions History Interval history: I have seen and examined the patient in her room Patient's chart and medications reviewed Patient feels better very minimal abdominal pain Surgeons evaluation and recommendations noted Hospitalist Physical - Constitutional Vitals: Temp Pulse Resp BP Pulse Ox 98.1 F 78 14 111/53 100 02/12/21 18:34 02/12/21 19:40 02/12/21 18:34 02/12/21 18:54 02/12/21 19:40 General appearance: Present: no acute distress, well-nourished - EENT Eyes: Present: PERRL, EOM intact - Neck Neck: Present: supple, normal ROM - Respiratory Respiratory effort: normal Respiratory: bilateral: diminished, negative: rales, rhonchi, wheezing - Cardiovascular Rhythm: regular Heart Sounds: Present: S1 & S2 - Extremities Extremities: no ischemia, No edema - Abdominal General gastrointestinal: soft, non-tender, non-distended, normal bowel sounds - Integumentary Integumentary: Present: clear, warm - Psychiatric Psychiatric: appropriate mood/affect, cooperative - Neurologic Neurologic: CNII-XII intact, moves all extremities Results - Labs CBC & Chem 7: 02/11/21 18:30 02/11/21 18:30 Labs: Laboratory Last Values WBC 18.2 K/mm3 (4.5-11.0) H 02/11/21 18:30 RBC 3.35 M/mm3 (3.65-5.03) L 02/11/21 18:30 Hgb 10.1 gm/dl (10.1-14.3) 02/11/21 18:30 Hct 28.8 % (30.3-42.9) L 02/11/21 18:30 MCV 86 fl (79-97) 02/11/21 18:30 MCH 30 pg (28-32) 02/11/21 18:30 MCHC 35 % (30-34) H 02/11/21 18:30 RDW 14.1 % (13.2-15.2) 02/11/21 18:30 Plt Count 312 K/mm3 (140-440) 02/11/21 18:30 Lymph % (Auto) 6.7 % (13.4-35.0) L 02/11/21 18:30 [place] % (Auto) 5.4 % (0.0-7.3) 02/11/21 18:30 Eos % (Auto) 0.1 % (0.0-4.3) 02/11/21 18:30 Baso % (Auto) 0.2 % (0.0-1.8) 02/11/21 18:30 Lymph # (Auto) 1.2 K/mm3 (1.2-5.4) 02/11/21 18:30 [place] # (Auto) 1.0 K/mm3 (0.0-0.8) H 02/11/21 18:30 Eos # (Auto) 0.0 K/mm3 (0.0-0.4) 02/11/21 18:30 Baso # (Auto) 0.0 K/mm3 (0.0-0.1) 02/11/21 18:30 Seg Neutrophils % 87.6 % (40.0-70.0) H 02/11/21 18:30 Seg Neutrophils # 15.9 K/mm3 (1.8-7.7) H 02/11/21 18:30 Sodium 135 mmol/L (137-145) L 02/11/21 18:30 Potassium 3.1 mmol/L (3.6-5.0) L 02/11/21 18:30 Chloride 99.9 mmol/L (98-107) 02/11/21 18:30 Carbon Dioxide 18 mmol/L (22-30) L 02/11/21 18:30 Anion Gap 20 mmol/L 02/11/21 18:30 BUN 4 mg/dL (7-17) L 02/11/21 18:30 Creatinine 0.3 mg/dL (0.6-1.2) L 02/11/21 18:30 Estimated GFR > 60 ml/min 02/11/21 18:30 BUN/Creatinine Ratio 13 % 02/11/21 18:30 Glucose 67 mg/dL (65-100) 02/11/21 18:30 Calcium 8.5 mg/dL (8.4-10.2) 02/11/21 18:30 Total Bilirubin 0.70 mg/dL (0.1-1.2) 02/11/21 18:30 AST 34 units/L (5-40) 02/11/21 18:30 ALT 30 units/L (7-56) 02/11/21 18:30 Alkaline Phosphatase 74 units/L (35-129) 02/11/21 18:30 Total Protein 6.4 g/dL (6.3-8.2) 02/11/21 18:30 Albumin 3.4 g/dL (3.9-5) L 02/11/21 18:30 Albumin/Globulin Ratio 1.1 % 02/11/21 18:30 Amylase 20 units/L (27-131) L 02/12/21 10: Lipase 6 units/L (13-60) L 02/12/21 10:22 Urine Color Yellow (Yellow) 02/11/21 19:10 Urine Turbidity Clear (Clear) 02/11/21 19:10 Urine pH 7.0 (5.0-7.0) 02/11/21 19:10 Ur Specific [place] 1.017 (1.003-1.030) 02/11/21 19:10 Urine Protein 100 mg/dl mg/dL (Negative) 02/11/21 19:10 Urine Glucose (UA) Neg mg/dL (Negative) 02/11/21 19:10 Urine Ketones 80 mg/dL (Negative) 02/11/21 19:10 Urine Blood Neg (Negative) 02/11/21 19:10 Urine Nitrite Neg (Negative) 02/11/21 19:10 Urine Bilirubin Neg (Negative) 02/11/21 19:10 Urine Urobilinogen < 2.0 mg/dL (<2.0) 02/11/21 19:10 Ur Leukocyte Esterase Neg (Negative) 02/11/21 19:10 Urine WBC (Auto) 1.0 /HPF (0.0-6.0) 02/11/21 19:10 Urine RBC (Auto) 3.0 /HPF (0.0-6.0) 02/11/21 19:10 U Epithel Cells (Auto) < 1.0 /HPF (0-13.0) 02/11/21 19:10 Urine Mucus 1+ /HPF 02/11/21 19:10 Urine Opiates Screen Negative 02/11/21 19:10 Urine Methadone Screen Negative 02/11/21 19:10 Ur Barbiturates Screen Negative 02/11/21 19:10 Ur Phencyclidine Scrn Negative 02/11/21 19:10 Ur Amphetamines Screen Negative 02/11/21 19:10 U Benzodiazepines Scrn Negative 02/11/21 19:10 Urine Cocaine Screen Negative 02/11/21 19:10 U Marijuana (THC) Screen Positive 02/11/21 19:10 Drugs of Abuse Note Disclamer 02/11/21 19:10 Active Medications - Current Medications Current Medications: Generic Name Dose Route Start Last Admin Trade Name Freq PRN Reason Stop Dose Admin Acetaminophen 650 mg 02/12/21 14:11 Acetaminophen 325 Mg Tab PO Q4H PRN Pain MILD(1-3)/Fever >100.5/FRANCISCO Ceftriaxone Sodium 1 gm in 50 mls @ 100 mls/hr 02/12/21 01:00 02/12/21 01:52 Rocephin/Ns 1 Gm/50 Ml IV 100 mls/hr Q24H ALLAN Administration Protocol Potassium Chloride 20 meq/ 1,010 mls @ 125 mls/hr 02/12/21 10:00 02/12/21 10:14 Lactated Ringer's IV 125 mls/hr DIRECT ALLAN Administration Nalbuphine HCl 10 mg 02/12/21 00:00 02/12/21 17:24 Nalbuphine 10 Mg/1 Ml Inj IV 10 mg Q3H PRN Administration Pain, Moderate (4-6) Ondansetron HCl 4 mg 02/12/21 00:07 02/12/21 17:24 Ondansetron 4 Mg/2 Ml Inj IV 4 mg Q4H PRN Administration Nausea And Vomiting Sertraline HCl 25 mg 02/12/21 13:00 Sertraline 25 Mg Tab PO QDAY ALLAN
[2021-02-13] MEDS ORDERED: LACTATED RINGERS 1,000 ML ONE (01:43)
[2021-02-13] MEDS: cefTRIAXone/NS 1 GM/50 ML 1 GM/50 ML BAG IV SCH (01:58)
--- NOTE | 2021-02-13 09:13 | Progress Note ---
Assessment and Plan - Patient Problems (1) Gall bladder disease Current Visit: Yes Status: Acute Plan to address problem: For surgical management by Gen surgery pending availability and COVID testing. COVID testing today. Will plan for NPO after midnight when surgery date/time known (2) Anxiety Onset Date: 07/14/14 Current Visit: No Status: Acute Plan to address problem: --s/p psych consult. Started on Zoloft 25mg. 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 (3) Constipation Current Visit: No Status: Acute Plan to address problem: --On bowel regimen. Continue to monitor. Subjective - Subjective Date of service: 02/13/21 Principal diagnosis: IUP at 21.6wks with abd pain, gall stones, substance abuse Interval history: Patient reports that she is feeling overall okay. Pain overall controlled with pain medication. Constipation is "okay." Planning for cholecystectomy by surgery when available after COVID testing. No complaints. Objective - Vital Signs Vital Signs: Vital Signs - 12hr 02/12/21 02/12/21 02/12/21 21:15 21:20 21:25 Pulse Rate 77 74 75 Respiratory Rate Blood Pressure O2 Sat by Pulse 100 100 100 Oximetry 02/12/21 02/12/21 02/12/21 21:30 21:35 21:40 Pulse Rate 79 63 73 Respiratory Rate Blood Pressure O2 Sat by Pulse 100 100 100 Oximetry 02/12/21 02/12/21 02/12/21 21:45 21:50 21:56 Pulse Rate 88 90 52 L Respiratory Rate Blood Pressure O2 Sat by Pulse 100 100 90 Oximetry 02/12/21 02/12/21 02/12/21 22:01 22:06 22:11 Pulse Rate 77 78 75 Respiratory Rate Blood Pressure O2 Sat by Pulse 100 100 100 Oximetry 02/12/21 02/12/21 02/12/21 22:16 22:21 22:26 Pulse Rate 81 80 77 Respiratory Rate Blood Pressure O2 Sat by Pulse 100 100 100 Oximetry 02/12/21 02/12/21 02/12/21 22:31 22:36 22:41 Pulse Rate 78 78 78 Respiratory Rate Blood Pressure O2 Sat by Pulse 100 100 100 Oximetry 02/12/21 02/12/21 02/12/21 22:46 22:51 22:54 Pulse Rate 73 76 88 Respiratory Rate Blood Pressure 106/55 O2 Sat by Pulse 100 100 Oximetry 02/12/21 02/12/21 02/12/21 22:56 23:01 23:06 Pulse Rate 76 77 82 Respiratory Rate Blood Pressure O2 Sat by Pulse 100 100 100 Oximetry 02/12/21 02/12/21 02/12/21 23:11 23:13 23:22 Pulse Rate 82 77 Respiratory 18 Rate Blood Pressure 87/50 O2 Sat by Pulse 100 Oximetry 02/13/21 02/13/21 02/13/21 02:01 07:44 07:45 Pulse Rate 69 78 29 L Respiratory Rate Blood Pressure 82/43 96/54 O2 Sat by Pulse 65 L Oximetry 02/13/21 07:46 Pulse Rate 78 Respiratory Rate Blood Pressure O2 Sat by Pulse 99 Oximetry - Exam Abdomen: Present: normal appearance, soft FHR: category 1 Uterine Contraction Monitor Mode: External - Labs Labs: Abnormal Labs 02/11/21 02/11/21 02/12/21 18:30 18:30 10:22 WBC 18.2 H RBC 3.35 L Hct 28.8 L MCHC 35 H Lymph % (Auto) 6.7 L [place] # (Auto) 1.0 H Seg Neutrophils % 87.6 H Seg Neutrophils # 15.9 H Sodium 135 L Potassium 3.1 L Carbon Dioxide 18 L BUN 4 L Creatinine 0.3 L Albumin 3.4 L Amylase 20 L Lipase 6 L Laboratory Results - last 24 hr 02/12/21 10:22 Amylase 20 L Lipase 6 L
[2021-02-13] MEDS: NalbUPHINE 10 MG/1 ML INJ IV PRN ×3 (09:51→21:41)
[2021-02-13] MEDS: SERTRALINE 25 MG TAB PO SCH (09:52)
--- NOTE | 2021-02-13 12:58 | Consultation ---
History of Present Illness Consult date: 02/13/21 Requesting physician: NATASHA HOWELL History of present illness: HPI Ms. Persaud is a 30 y/o MELA 06/29/20 EGA at 20 3/7 weeks presented Saturday with R sided abdominal pain Reports on admission pain 02/12 now minimal pain Denies Fever chills Pos diarrhea GB US noted sludge and stones Reports multiple hospital admissions this for the pain ( [place], [facility] LICENSE OF [facility] and [facility] ) Surgery evaluated patient offered conservative management but patient wants surgery - Please see General Surgery Consult GB US - sludge stones OB US - EFW 202 grams Pysh consult also done and placed on Zoloft Denies med history Surg D&C No STD , No C/D/D NKA OB at Term X 3 - ( 05, 10,15 ) Afeb VSS Abd min pain - gravid back no CVA Ext NT no edema Past History Past Medical History: other (constipation) Past Surgical History: no surgical history - Obstetrical History : 7 Medications and Allergies Allergies Allergy/AdvReac Type Severity Reaction Status Date / Time No Known Allergies Allergy Unverified 02/12/21 05:45 Home Medications Medication Instructions Recorded Confirmed Last Taken Type No Known Home Medications [No 02/13/21 02/13/21 Unknown History Reported Home Medications] Active Meds: Active Medications Acetaminophen (Acetaminophen 325 Mg Tab) 650 mg PO Q4H PRN PRN Reason: Pain MILD(1-3)/Fever >100.5/FRANCISCO Ceftriaxone Sodium (Rocephin/Ns 1 Gm/50 Ml) 1 gm in 50 mls @ 100 mls/hr IV Q24H ALLAN; Protocol Last Admin: 02/13/21 01:58 Dose: 100 mls/hr Documented by: Potassium Chloride 20 meq/ (Lactated Ringer's) 1,010 mls @ 125 mls/hr IV DIRECT ALLAN Last Admin: 02/12/21 10:14 Dose: 125 mls/hr Documented by: Nalbuphine HCl (Nalbuphine 10 Mg/1 Ml Inj) 10 mg IV Q3H PRN PRN Reason: Pain, Moderate (4-6) Last Admin: 02/13/21 09:51 Dose: 10 mg Documented by: Ondansetron HCl (Ondansetron 4 Mg/2 Ml Inj) 4 mg IV Q4H PRN PRN Reason: Nausea And Vomiting Last Admin: 02/12/21 17:24 Dose: 4 mg Documented by: Sertraline HCl (Sertraline 25 Mg Tab) 25 mg PO QDAY ALLAN Last Admin: 02/13/21 09:52 Dose: 25 mg Documented by: - Vital Signs Vital signs: Vital Signs Pulse BP 120 H 126/68 02/11/21 19:00 02/11/21 19:00 Temp Pulse Resp BP Pulse Ox 98.4 F 70 18 82/44 99 02/13/21 07:44 02/13/21 10:44 02/13/21 09:51 02/13/21 10:44 02/13/21 07:46 Results Result Diagrams: 02/11/21 18:30 02/11/21 18:30 All other labs normal. Assessment and Plan Impression: 1. Reyes IUP at 20 3/7 weeks 2. Gallstones 3. Borderline anemia 4. Anxiety - Placed on Zoloft 5. Marijuana Recommendations 1. Surgery evaluated patient and planning on surgery - Second trimester would be recommended time for surgery as less risk of miscarraige and labor 2. Periodic drug screens 3. Iron BID 4. Would discourage marijuana 5. May follow up with [facility] post surgery
--- NOTE | 2021-02-13 18:44 | Progress Note ---
Assessment and Plan Assessment and plan: --Abdominal pain; Probably due to gallbladder/gallstone disease Slightly improved, continue pain medications, IV fluids --Gallstones/gallbladder sludge Surgery evaluated the patient Scheduled for lap cholecystectomy tomorrow 02/14/2021 Continue current management --Constipation; improved Plenty oral fluids, stool softeners, bowel regimen --; management per [employer] Closely monitor patient and adjust management as needed Thank you for the consultation we will follow the patient along with you Call us with questions History Interval history: I seen and examined the patient at the bedside Patient's chart and medications reviewed Today patient feels a whole lot better Denies nausea vomiting Mild abdominal pain Scheduled for surgery tomorrow Hospitalist Physical - Constitutional Vitals: Temp Pulse Resp BP Pulse Ox 98.0 F 79 18 116/55 97 02/13/21 17:41 02/13/21 17:42 02/13/21 17:41 02/13/21 17:41 02/13/21 17:42 General appearance: Present: no acute distress, well-nourished - EENT Eyes: Present: PERRL, EOM intact - Neck Neck: Present: supple, normal ROM - Respiratory Respiratory effort: normal Respiratory: bilateral: diminished, negative: rales, rhonchi, wheezing - Cardiovascular Rhythm: regular Heart Sounds: Present: S1 & S2 - Extremities Extremities: no ischemia, No edema - Abdominal General gastrointestinal: soft, non-tender, normal bowel sounds - Integumentary Integumentary: Present: clear, warm - Psychiatric Psychiatric: appropriate mood/affect, cooperative - Neurologic Neurologic: moves all extremities Results - Labs CBC & Chem 7: 02/11/21 18:30 02/11/21 18:30 Labs: Laboratory Last Values WBC 18.2 K/mm3 (4.5-11.0) H 02/11/21 18:30 RBC 3.35 M/mm3 (3.65-5.03) L 02/11/21 18:30 Hgb 10.1 gm/dl (10.1-14.3) 02/11/21 18:30 Hct 28.8 % (30.3-42.9) L 02/11/21 18:30 MCV 86 fl (79-97) 02/11/21 18:30 MCH 30 pg (28-32) 02/11/21 18:30 MCHC 35 % (30-34) H 02/11/21 18:30 RDW 14.1 % (13.2-15.2) 02/11/21 18:30 Plt Count 312 K/mm3 (140-440) 02/11/21 18:30 Lymph % (Auto) 6.7 % (13.4-35.0) L 02/11/21 18:30 [place] % (Auto) 5.4 % (0.0-7.3) 02/11/21 18:30 Eos % (Auto) 0.1 % (0.0-4.3) 02/11/21 18:30 Baso % (Auto) 0.2 % (0.0-1.8) 02/11/21 18:30 Lymph # (Auto) 1.2 K/mm3 (1.2-5.4) 02/11/21 18:30 [place] # (Auto) 1.0 K/mm3 (0.0-0.8) H 02/11/21 18:30 Eos # (Auto) 0.0 K/mm3 (0.0-0.4) 02/11/21 18:30 Baso # (Auto) 0.0 K/mm3 (0.0-0.1) 02/11/21 18:30 Seg Neutrophils % 87.6 % (40.0-70.0) H 02/11/21 18:30 Seg Neutrophils # 15.9 K/mm3 (1.8-7.7) H 02/11/21 18:30 Sodium 135 mmol/L (137-145) L 02/11/21 18:30 Potassium 3.1 mmol/L (3.6-5.0) L 02/11/21 18:30 Chloride 99.9 mmol/L (98-107) 02/11/21 18:30 Carbon Dioxide 18 mmol/L (22-30) L 02/11/21 18:30 Anion Gap 20 mmol/L 02/11/21 18:30 BUN 4 mg/dL (7-17) L 02/11/21 18:30 Creatinine 0.3 mg/dL (0.6-1.2) L 02/11/21 18:30 Estimated GFR > 60 ml/min 02/11/21 18:30 BUN/Creatinine Ratio 13 % 02/11/21 18:30 Glucose 67 mg/dL (65-100) 02/11/21 18:30 Calcium 8.5 mg/dL (8.4-10.2) 02/11/21 18:30 Total Bilirubin 0.70 mg/dL (0.1-1.2) 02/11/21 18:30 AST 34 units/L (5-40) 02/11/21 18:30 ALT 30 units/L (7-56) 02/11/21 18:30 Alkaline Phosphatase 74 units/L (35-129) 02/11/21 18:30 Total Protein 6.4 g/dL (6.3-8.2) 02/11/21 18:30 Albumin 3.4 g/dL (3.9-5) L 02/11/21 18:30 Albumin/Globulin Ratio 1.1 % 02/11/21 18:30 Amylase 20 units/L (27-131) L 02/12/21 10: Lipase 6 units/L (13-60) L 02/12/21 10:22 Urine Color Yellow (Yellow) 02/11/21 19:10 Urine Turbidity Clear (Clear) 02/11/21 19:10 Urine pH 7.0 (5.0-7.0) 02/11/21 19:10 Ur Specific [place] 1.017 (1.003-1.030) 02/11/21 19:10 Urine Protein 100 mg/dl mg/dL (Negative) 02/11/21 19:10 Urine Glucose (UA) Neg mg/dL (Negative) 02/11/21 19:10 Urine Ketones 80 mg/dL (Negative) 02/11/21 19:10 Urine Blood Neg (Negative) 02/11/21 19:10 Urine Nitrite Neg (Negative) 02/11/21 19:10 Urine Bilirubin Neg (Negative) 02/11/21 19:10 Urine Urobilinogen < 2.0 mg/dL (<2.0) 02/11/21 19:10 Ur Leukocyte Esterase Neg (Negative) 02/11/21 19:10 Urine WBC (Auto) 1.0 /HPF (0.0-6.0) 02/11/21 19:10 Urine RBC (Auto) 3.0 /HPF (0.0-6.0) 02/11/21 19:10 U Epithel Cells (Auto) < 1.0 /HPF (0-13.0) 02/11/21 19:10 Urine Mucus 1+ /HPF 02/11/21 19:10 Urine Opiates Screen Negative 02/11/21 19:10 Urine Methadone Screen Negative 02/11/21 19:10 Ur Barbiturates Screen Negative 02/11/21 19:10 Ur Phencyclidine Scrn Negative 02/11/21 19:10 Ur Amphetamines Screen Negative 02/11/21 19:10 U Benzodiazepines Scrn Negative 02/11/21 19:10 Urine Cocaine Screen Negative 02/11/21 19:10 U Marijuana (THC) Screen Positive 02/11/21 19:10 Drugs of Abuse Note Disclamer 02/11/21 19:10 Coronavirus (PCR) Negative (Negative) 02/13/21 Unknown Active Medications - Current Medications Current Medications: Generic Name Dose Route Start Last Admin Trade Name Freq PRN Reason Stop Dose Admin Acetaminophen 650 mg 02/12/21 14:11 Acetaminophen 325 Mg Tab PO Q4H PRN Pain MILD(1-3)/Fever >100.5/FRANCISCO Ceftriaxone Sodium 1 gm in 50 mls @ 100 mls/hr 02/12/21 01:00 02/13/21 01:58 Rocephin/Ns 1 Gm/50 Ml IV 100 mls/hr Q24H ALLAN Administration Protocol Potassium Chloride 20 meq/ 1,010 mls @ 125 mls/hr 02/12/21 10:00 02/12/21 10: 14 Lactated Ringer's IV 125 mls/hr DIRECT ALLAN Administration Nalbuphine HCl 10 mg 02/12/21 00:00 02/13/21 15:54 Nalbuphine 10 Mg/1 Ml Inj IV 10 mg Q3H PRN Administration Pain, Moderate (4-6) Ondansetron HCl 4 mg 02/12/21 00:07 02/12/21 17:24 Ondansetron 4 Mg/2 Ml Inj IV 4 mg Q4H PRN Administration Nausea And Vomiting Sertraline HCl 25 mg 02/12/21 13:00 02/13/21 09:52 Sertraline 25 Mg Tab PO 25 mg QDAY ALLAN Administration
[2021-02-13] MEDS: ONDANSETRON 4 MG/2 ML INJ IV PRN (21:37)
[2021-02-13 23:43] LABS: Basophils % (Auto) 0.6 % (0.0-1.8); Eosinophils # (Auto) 0.1 K/mm3 (0.0-0.4); Eosinophils % (Auto) 0.6 % (0.0-4.3); Hematocrit 27.6 % (30.3-42.9); Hemoglobin 9.5 gm/dl (10.1-14.3); Lymphocytes # (Auto) 1.6 K/mm3 (1.2-5.4); Lymphocytes % (Auto) 17.7 % (13.4-35.0); Mean Corpuscular HGB Conc 35 % (30-34); Mean Corpuscular Volume 87 fl (79-97); Monocytes # (Auto) 0.7 K/mm3 (0.0-0.8); Monocytes % (Auto) 7.4 % (0.0-7.3); Platelet Count 283 K/mm3 (140-440); Red Blood Count 3.19 M/mm3 (3.65-5.03)
[2021-02-14] MEDS ORDERED: POTASSIUM CHLORIDE ER 20 MEQ TAB PO ONE (00:09)
--- NOTE | 2021-02-14 00:11 | Event Note ---
Date: 02/14/21 Informed of critical lab result of hypokalemia K 2.9. Repleted with 40 meQ IV, 40 meQ po.
[2021-02-14] MEDS ORDERED: POTASSIUM CHLORIDE 10 MEQ 10 MEQ/100 ML BAG IV SCH (01:00)
[2021-02-14] MEDS: cefTRIAXone/NS 1 GM/50 ML 1 GM/50 ML BAG IV SCH (01:04)
[2021-02-14] MEDS: NalbUPHINE 10 MG/1 ML INJ IV PRN ×2 (02:06→19:48)
[2021-02-14] MEDS: SERTRALINE 25 MG TAB PO SCH (09:32)
[2021-02-14] MEDS ORDERED: ACETAMINOPHEN 500 MG TAB PO NR (10:30)
--- NOTE | 2021-02-14 10:53 | Anesthesia Day of Surgery ---
Anesthesia Day of Surgery - Day of Surgery Patient Examined: Yes Patient H&P Reviewed: Yes Patient is NPO: Yes Beta Blockers: No Cardiac Clearance: No Pulmonary Clearance: No Marlo's Test: N/A
--- NOTE | 2021-02-14 10:54 | Anesthesia Consultation ---
Anesthesia Consult and Med Hx Date of service: 02/14/21 - Airway Anesthetic Teeth Evaluation: Good ROM Head & Neck: Adequate Mental/Hyoid Distance: Adequate Mallampati Class: Class II Intubation Access Assessment: Good - Pulmonary Exam CTA: Yes - Cardiac Exam Cardiac Exam: RRR - Pre-Operative Health Status ASA Pre-Surgery Classification: ASA2 Proposed Anesthetic Plan: General - Pulmonary Hx Smoking: No Hx Asthma: No Hx Respiratory Symptoms: No COPD: No Hx Pneumonia: No Hx Sleep Apnea: No - Cardiovascular System Hx Hypertension: No Hx Heart Attack/AMI: No Hx Angina: No Hx Percutaneous Transluminal Coronary Angioplasty (PTCA): No Hx Cardia Arrhythmia: No - Central Nervous System Hx Seizures: No CVA: No Hx Psychiatric Problems: Yes (anxiety) - Gastrointestinal Hx Gastroesophageal Reflux Disease: No (hx chronic constipation. Per patient, outpatient GI eval pending.) - Endocrine Hx Renal Disease: No Hx End Stage Renal Disease: No Hx Liver Disease: No (cholelithiasis) Hx Insulin Dependent Diabetes: No Hx Non-Insulin Dependent Diabetes: No Hx Thyroid Disease: No Hx Hypothyroidism: No Hx Hyperthyroidism: No - Hematic Hx Anemia: Yes Hx Sickle Cell Disease: No - Other Systems Hx Alcohol Use: No Hx Substance Use: Yes Hx Obesity: No - Additional Comments Anesthesia Medical History Comments: surgical hx: D&C
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
[2021-02-14] MEDS ORDERED: LIDOCAINE MPF (2%) 20 MG/1 ML VIAL 5 ML ONE (12:40)
[2021-02-14] MEDS ORDERED: propofoL 200 MG/20 ML VIAL IV ONE (12:41)
[2021-02-14] MEDS ORDERED: fentaNYL 100 MCG/2 ML INJ ONE ×2 (12:41→14:17)
[2021-02-14] MEDS ORDERED: ROCURONIUM 50 MG/5 ML INJ IV ONE (12:41)
[2021-02-14] MEDS ORDERED: ONDANSETRON 4 MG/2 ML INJ ONE (12:41)
[2021-02-14] MEDS ORDERED: LIDOCAINE (1%) 10 MG/1 ML VIAL 20 ML MDV ONE (13:18)
[2021-02-14] MEDS ORDERED: BUPIVACAINE/PF (0.25%) 2.5 MG/ML 30 ML VIAL INFILTRATI ONE (13:19)
[2021-02-14] MEDS ORDERED: ePHEDrine SULFATE 50 MG/1 ML INJ ONE (13:27)
[2021-02-14] MEDS ORDERED: SUGAMMADEX SODIUM 200 MG/2 ML VIAL IV ONE (13:53)
[2021-02-14] MEDS ORDERED: .SODIUM CHLORIDE 0.9% IRRIG SOLN 3000 ML IR ONE (14:16)
[2021-02-14] MEDS ORDERED: LIDOCAINE (1%) 10 MG/1 ML VIAL 20 ML MDV INFILTRATI ONE (14:16)
[2021-02-14] MEDS ORDERED: BUPIVACAINE/PF (0.5%) 5 MG/1 ML 10 ML VIAL INFILTRATI ONE (14:17)
--- NOTE | 2021-02-14 14:25 | Operative Report ---
Operative Report Operative Report: Date of operation: 02/14/2021 Preoperative diagnosis: Symptomatic cholelithiasis postOperative diagnoses: Symptomatic cholelithiasis Procedure performed: Laparoscopic cholecystectomy Surgeon: Rory Eastman DO Head Holder surgeon: MD Stephanie Anesthesia: Gen. endotracheal anesthesia, local Findings: Gallbladder with stones and adhesions to omentum Specimen: Gallbladder Estimated blood loss: <10cc Complications: None Disposition: Stable to PACU HPI an indication: 30 yo F who is currently 21 weeks who presented to the emergency room with ongoing complaints of intermittent right upper quadrant pain. Patient had had multiple ER visits due to this pain and was undergoing a GI work-up. Ultrasound of the abdomen revealed stones. It was felt that the patient symptoms are partially due to symptomatic cholelithiasis. The patient elected to proceed with cholecystectomy during , excepting risks to the fetus. All risks, benefits, alternatives to surgery were discussed in detail and questions answered. Consent was obtained for laparoscopic, possible open cholecystectomy, possible cholangiogram. Procedure in detail: The patient was identified in the preoperative area and taken back to the operating room, placed on the operating room table in supine position. After anesthesia was induced, the abdomen was prepped and draped in usual sterile fashion and timeout was performed. Local anesthetic was infiltrated into all of the skin incision sites. A mariah incision was made in the left upper quadrant at Mc's point through which a Veress needle was inserted. The Veress needle positioning was confirmed using saline drop test and the abdomen insufflated to 15 mmHg without incident. The patient is 21 weeks with a gravid uterus extended just below the umbilicus. Therefore a 5 mm Optiview trocar was placed through an incision in the right upper quadrant. The abdomen was inspected and there was no underlying injury to any of the abdominal structures. The Veress needle was identified and removed. An additional 12 mm subxyphoid port, 5 mm supraumbilical, and 5 mm right lateral abdominal (airseal) ports were placed under direct visualization. The patient was then placed into reverse Trendelberg and tilted to the left. The gallbladder was retracted cephalad and above the liver. There were omental adhesions to the gallbladder which were dissected bluntly. The cystic duct and artery were carefully skeletonized. The medial and lateral peritoneal attach ments to the gallbladder were dissected using a combination of blunt dissection with the [place] and hook electrocautery. The cystic duct and artery were the only 2 structures seen entering the gallbladder and the critical view was successfully obtained. 3 clips were placed on the proximal aspect of the cystic duct and 1 distally and this was transected in between the clips using EndoShears. 2 clips were placed on the proximal aspect of the cystic artery and 1 distally this was transected in between the clips using EndoShears. An additional clip was applied to a posterior branch of the artery the gallbladder was dissected from the liver bed using electrocautery. The gallbladder was placed into a Endo Catch bag and removed from the abdomen via the 12mm port. The gallbladder fossa was then inspected and there was no identifiable bleeding or bile leakage. The clips on the cystic duct and artery were visualized and intact. The patient was then placed into neutral position. Morison's pouch was irrigated until the irrigant returned clear. Hemostasis was ensured. The 12 mm port fascia was closed with interrupted 0 Vicryl suture. The remaining ports were removed under direct visualization. Skin incisions were closed with 4-0 Monocryl subcuticular stitches and skin glue. All skin incisions were once again infiltrated with local anesthetic. At the end case all sponge, instrument, sharp counts were correct 2. The patient was awoken from anesthesia, extubated, and taken to PACU in stable condition. Patient's was updated.
[2021-02-14] MEDS ORDERED: fentaNYL 100 MCG/2 ML INJ IV PRN (14:32)
[2021-02-14] MEDS ORDERED: ONDANSETRON 4 MG/2 ML INJ IV PRN (14:32)
[2021-02-14] MEDS: MORPHINE 2 MG/1 ML INJ IV PRN ×3 (15:15→17:03)
[2021-02-14] MEDS ORDERED: ceFAZolin 1 GM VIAL ONE (15:45)
--- NOTE | 2021-02-14 16:45 | Post Anesthesia Evaluation ---
- Post Anesthesia Evaluation Patient Participated: Yes Airway Patent: Yes Stable Respiratory Function: Yes Nausea/Vomiting: No Temp > 96.8F: Yes Pain Manageable: Yes Adequeate Hydration: Yes Anesthesia Complications: No Other Comments: Received report from L&D RN that post op FHTs were 130s with good variability.
--- NOTE | 2021-02-14 19:05 | Event Note ---
Date: 02/14/21 pt evaluated with c/o pain inspite of morphine 6mg in divided doses. FOB to bedside. I spoke with pt and she told me not to touch her stomach. I asked her to lift her patient gown and operative sites x4 from surgery today with dermabond and appear within normal limits. The to my left observed the sites as well. I will continue IV hydration and give nubain every 2hr prn pain. Pt requested dilaudid per nurse report, same not given due to contraindication in literature. FHR normal range. Emotional support given. All questions e ncouraged and answered.
[2021-02-14] MEDS ORDERED: LORazepam 2 MG/ML VIAL IV ONE (20:45)
[2021-02-14] MEDS: ONDANSETRON 4 MG/2 ML INJ IV PRN (21:29)
--- NOTE | 2021-02-14 23:25 | Progress Note ---
Assessment and Plan --Abdominal pain; due to gallbladder/gallstone disease Slightly improved, continue pain medications, IV fluids --Gallstones/gallbladder sludge Surgery evaluated the patient s/p lap cholecystectomy today 02/14/2021 Continue current management --Constipation; improved Plenty oral fluids, stool softeners, bowel regimen --; management per [employer] ENGINEER --Closely monitor patient and adjust management as needed Subjective Date of service: 02/14/21 Principal diagnosis: IUP at 20.3wks with abd pain, gall stones, substance abuse Interval history: Patient seen and examined. Medical records and medication list reviewed. No acute event overnight noted by the RN. Patient complains of abdominal pain. Status post laparoscopic cholecystectomy Discussed plan of care at bedside with patient. Objective - Exam Narrative Exam: GENERAL: well-developed -[place] male lying on bed appeared to be in mild discomfort. HEENT: Normocephalic. Atraumatic. No conjunctival congestion or icterus. Patient has moist mucous membranes. NECK: Supple. Trachea midline. CHEST/LUNGS: Clear to auscultated bilaterally, breathing nonlabored. No wheezes crackles or rhonchi. HEART/CARDIOVASCULAR: Regular in rate and rhythm. S1 and S2 positive. ABDOMEN: Abdomen is soft, Patient has normal bowel sounds. SKIN: There is no rash. Warm and dry. NEURO: No focal motor deficit. Follows command. MUSCULOSKELETAL: No joint effusion or tenderness. EXTRIMITY: No edema, no cyanosis or clubbing. PSYCH: Cooperative. - Constitutional Vitals: Vital Signs - 12hr 02/14/21 02/14/21 02/14/21 11:25 11:26 11:27 Temperature Pulse Rate 78 72 Respiratory Rate Blood Pressure 101/59 Blood Pressure [Right] O2 Sat by Pulse 79 L 100 Oximetry O2 Sat by Pulse Oximetry [ Anterior Bilateral Throughout] 02/14/21 02/14/21 02/14/21 11:31 11:36 11:41 Temperature Pulse Rate 84 80 92 H Respiratory Rate Blood Pressure Blood Pressure [Right] O2 Sat by Pulse 100 100 100 Oximetry O2 Sat by Pulse Oximetry [ Anterior Bilateral Throughout] 02/14/21 02/14/21 02/14/21 11:43 11:46 11:51 Temperature 98.0 F Pulse Rate 89 86 Respiratory Rate Blood Pressure Blood Pressure 101/59 [Right] O2 Sat by Pulse 100 100 Oximetry O2 Sat by Pulse 98 Oximetry [ Anterior Bilateral Throughout] 02/14/21 02/14/21 02/14/21 11:56 12:01 12:06 Temperature Pulse Rate 79 80 82 Respiratory Rate Blood Pressure Blood Pressure [Right] O2 Sat by Pulse 100 100 100 Oximetry O2 Sat by Pulse Oximetry [ Anterior Bilateral Throughout] 02/14/21 02/14/21 02/14/21 12:11 12:16 12:21 Temperature Pulse Rate 78 85 83 Respiratory Rate Blood Pressure Blood Pressure [Right] O2 Sat by Pulse 100 100 100 Oximetry O2 Sat by Pulse Oximetry [ Anterior Bilateral Throughout] 02/14/21 02/14/21 02/14/21 12:26 14:13 14:18 Temperature 97.5 F L Pulse Rate 69 100 H 100 H Respiratory 18 16 Rate Blood Pressure 128/75 127/76 Blood Pressure [Right] O2 Sat by Pulse 97 100 100 Oximetry O2 Sat by Pulse Oximetry [ Anterior Bilateral Throughout] 02/14/21 02/14/21 02/14/21 14:20 14:23 14:28 Temperature Pulse Rate 98 H 96 H Respiratory 20 17 22 Rate Blood Pressure 127/72 124/67 Blood Pressure [Right] O2 Sat by Pulse 100 100 Oximetry O2 Sat by Pulse Oximetry [ Anterior Bilateral Throughout] 02/14/21 02/14/21 02/14/21 14:30 14:35 14:43 Temperature 97.8 F Pulse Rate 95 H 92 H Respiratory 18 21 22 Rate Blood Pressure 120/61 118/58 Blood Pressure [Right] O2 Sat by Pulse 100 100 Oximetry O2 Sat by Pulse Oximetry [ Anterior Bilateral Throughout] 02/14/21 02/14/21 02/14/21 14:51 14:52 14:56 Temperature Pulse Rate 98 H 98 H Respiratory Rate Blood Pressure 128/69 Blood Pressure [Right] O2 Sat by Pulse 90 94 100 Oximetry O2 Sat by Pulse Oximetry [ Anterior Bilateral Throughout] 02/14/21 02/14/21 02/14/21 15:01 15:06 15:11 Temperature Pulse Rate 95 H 98 H 95 H Respiratory Rate Blood Pressure Blood Pressure [Right] O2 Sat by Pulse 100 100 100 Oximetry O2 Sat by Pulse Oximetry [ Anterior Bilateral Throughout] 02/14/21 02/14/21 02/14/21 15:16 15:21 15:26 Temperature Pulse Rate 95 H 91 H 92 H Respiratory Rate Blood Pressure Blood Pressure [Right] O2 Sat by Pulse 100 100 100 Oximetry O2 Sat by Pulse Oximetry [ Anterior Bilateral Throughout] 02/14/21 02/14/21 02/14/21 15:30 15:31 15:36 Temperature Pulse Rate 95 H 91 H Respiratory 16 Rate Blood Pressure Blood Pressure [Right] O2 Sat by Pulse 100 100 Oximetry O2 Sat by Pulse Oximetry [ Anterior Bilateral Throughout] 02/14/21 02/14/21 02/14/21 15:41 15:46 15:51 Temperature Pulse Rate 92 H 97 H 92 H Respiratory Rate Blood Pressure Blood Pressure [Right] O2 Sat by Pulse 100 100 100 Oximetry O2 Sat by Pulse Oximetry [ Anterior Bilateral Throughout] 02/14/21 02/14/21 02/14/21 15:56 16:01 16:06 Temperature Pulse Rate 95 H 95 H 91 H Respiratory Rate Blood Pressure Blood Pressure [Right] O2 Sat by Pulse 100 100 100 Oximetry O2 Sat by Pulse Oximetry [ Anterior Bilateral Throughout] 02/14/21 02/14/21 02/14/21 16:11 16:16 16:21 Temperature Pulse Rate 98 H 90 89 Respiratory Rate Blood Pressure Blood Pressure [Right] O2 Sat by Pulse 100 100 100 Oximetry O2 Sat by Pulse Oximetry [ Anterior Bilateral Throughout] 02/14/21 02/14/21 02/14/21 16:26 16:31 16:36 Temperature Pulse Rate 87 87 89 Respiratory Rate Blood Pressure Blood Pressure [Right] O2 Sat by Pulse 100 100 100 Oximetry O2 Sat by Pulse Oximetry [ Anterior Bilateral Throughout] 02/14/21 02/14/21 02/14/21 16:41 16:46 16:51 Temperature Pulse Rate 93 H 92 H 91 H Respiratory Rate Blood Pressure Blood Pressure [Right] O2 Sat by Pulse 100 100 100 Oximetry O2 Sat by Pulse Oximetry [ Anterior Bilateral Throughout] 02/14/21 02/14/21 02/14/21 16:56 17:01 17:06 Temperature Pulse Rate 89 86 91 H Respiratory Rate Blood Pressure Blood Pressure [Right] O2 Sat by Pulse 100 100 100 Oximetry O2 Sat by Pulse Oximetry [ Anterior Bilateral Throughout] 02/14/21 02/14/21 02/14/21 17:11 17:16 17:21 Temperature Pulse Rate 90 82 86 Respiratory Rate Blood Pressure Blood Pressure [Right] O2 Sat by Pulse 100 99 100 Oximetry O2 Sat by Pulse Oximetry [ Anterior Bilateral Throughout] 02/14/21 02/14/21 02/14/21 17:26 17:31 17:36 Temperature Pulse Rate 85 89 86 Respiratory Rate Blood Pressure Blood Pressure [Right] O2 Sat by Pulse 100 100 100 Oximetry O2 Sat by Pulse Oximetry [ Anterior Bilateral Throughout] 02/14/21 02/14/21 02/14/21 17:41 17:46 17:51 Temperature Pulse Rate 89 83 90 Respiratory Rate Blood Pressure Blood Pressure [Right] O2 Sat by Pulse 100 100 100 Oximetry O2 Sat by Pulse Oximetry [ Anterior Bilateral Throughout] 02/14/21 02/14/21 02/14/21 17:56 18:01 18:06 Temperature Pulse Rate 93 H 95 H 94 H Respiratory Rate Blood Pressure Blood Pressure [Right] O2 Sat by Pulse 100 100 100 Oximetry O2 Sat by Pulse Oximetry [ Anterior Bilateral Throughout] 02/14/21 02/14/21 02/14/21 18:11 18:16 18:21 Temperature Pulse Rate 83 92 H 83 Respiratory Rate Blood Pressure Blood Pressure [Right] O2 Sat by Pulse 100 100 100 Oximetry O2 Sat by Pulse Oximetry [ Anterior Bilateral Throughout] 02/14/21 02/14/21 02/14/21 18:26 18:31 18:36 Temperature Pulse Rate 88 92 H 90 Respiratory Rate Blood Pressure Blood Pressure [Right] O2 Sat by Pulse 100 100 100 Oximetry O2 Sat by Pulse Oximetry [ Anterior Bilateral Throughout] 02/14/21 02/14/21 02/14/21 18:41 18:46 18:51 Temperature Pulse Rate 94 H 91 H 89 Respiratory Rate Blood Pressure Blood Pressure [Right] O2 Sat by Pulse 100 100 100 Oximetry O2 Sat by Pulse Oximetry [ Anterior Bilateral Throughout] 02/14/21 02/14/21 02/14/21 18:56 19:01 19:06 Temperature Pulse Rate 87 95 H 94 H Respiratory Rate Blood Pressure Blood Pressure [Right] O2 Sat by Pulse 100 100 100 Oximetry O2 Sat by Pulse Oximetry [ Anterior Bilateral Throughout] 02/14/21 02/14/21 02/14/21 19:11 19:16 19:21 Temperature Pulse Rate 95 H 88 94 H Respiratory Rate Blood Pressure Blood Pressure [Right] O2 Sat by Pulse 100 100 100 Oximetry O2 Sat by Pulse Oximetry [ Anterior Bilateral Throughout] 02/14/21 02/14/21 02/14/21 19:26 19:31 19:36 Temperature Pulse Rate 89 98 H 91 H Respiratory Rate Blood Pressure Blood Pressure [Right] O2 Sat by Pulse 100 100 100 Oximetry O2 Sat by Pulse Oximetry [ Anterior Bilateral Throughout] 02/14/21 02/14/21 02/14/21 19:41 19:46 19:51 Temperature Pulse Rate 90 89 89 Respiratory Rate Blood Pressure Blood Pressure [Right] O2 Sat by Pulse 100 100 100 Oximetry O2 Sat by Pulse Oximetry [ Anterior Bilateral Throughout] 02/14/21 02/14/21 02/14/21 19:56 20:01 20:06 Temperature Pulse Rate 89 91 H 92 H Respiratory Rate Blood Pressure Blood Pressure [Right] O2 Sat by Pulse 100 100 100 Oximetry O2 Sat by Pulse Oximetry [ Anterior Bilateral Throughout] 02/14/21 02/14/21 02/14/21 20:11 20:16 20:21 Temperature Pulse Rate 78 89 87 Respiratory Rate Blood Pressure Blood Pressure [Right] O2 Sat by Pulse 96 100 100 Oximetry O2 Sat by Pulse Oximetry [ Anterior Bilateral Throughout] 02/14/21 02/14/21 02/14/21 20:24 20:26 20:28 Temperature 97.7 F Pulse Rate 89 85 89 Respiratory 12 Rate Blood Pressure 125/65 Blood Pressure 125/65 [Right] O2 Sat by Pulse 100 Oximetry O2 Sat by Pulse Oximetry [ Anterior Bilateral Throughout] 02/14/21 02/14/21 02/14/21 20:31 20:36 20:41 Temperature Pulse Rate 80 91 H 84 Respiratory Rate Blood Pressure Blood Pressure [Right] O2 Sat by Pulse 99 100 100 Oximetry O2 Sat by Pulse Oximetry [ Anterior Bilateral Throughout] 02/14/21 02/14/21 02/14/21 20:46 20:51 20:56 Temperature Pulse Rate 90 78 78 Respiratory Rate Blood Pressure Blood Pressure [Right] O2 Sat by Pulse 100 99 98 Oximetry O2 Sat by Pulse Oximetry [ Anterior Bilateral Throughout] 02/14/21 02/14/21 02/14/21 21:01 21:06 21:11 Temperature Pulse Rate 91 H 80 85 Respiratory Rate Blood Pressure Blood Pressure [Right] O2 Sat by Pulse 100 100 100 Oximetry O2 Sat by Pulse Oximetry [ Anterior Bilateral Throughout] 02/14/21 02/14/21 02/14/21 21:16 21:21 21:26 Temperature Pulse Rate 75 95 H 81 Respiratory Rate Blood Pressure Blood Pressure [Right] O2 Sat by Pulse 100 100 100 Oximetry O2 Sat by Pulse Oximetry [ Anterior Bilateral Throughout] 02/14/21 02/14/21 02/14/21 21:31 21:36 21:41 Temperature Pulse Rate 85 95 H 85 Respiratory Rate Blood Pressure Blood Pressure [Right] O2 Sat by Pulse 100 100 95 Oximetry O2 Sat by Pulse Oximetry [ Anterior Bilateral Throughout] 02/14/21 02/14/21 02/14/21 21:46 21:51 21:56 Temperature Pulse Rate 82 79 81 Respiratory Rate Blood Pressure Blood Pressure [Right] O2 Sat by Pulse 100 100 100 Oximetry O2 Sat by Pulse Oximetry [ Anterior Bilateral Throughout] 02/14/21 02/14/21 02/14/21 22:01 22:06 22:11 Temperature Pulse Rate 87 85 87 Respiratory Rate Blood Pressure Blood Pressure [Right] O2 Sat by Pulse 100 100 100 Oximetry O2 Sat by Pulse Oximetry [ Anterior Bilateral Throughout] 02/14/21 02/14/21 02/14/21 22:16 22:21 22:26 Temperature Pulse Rate 92 H 86 96 H Respiratory Rate Blood Pressure Blood Pressure [Right] O2 Sat by Pulse 100 100 99 Oximetry O2 Sat by Pulse Oximetry [ Anterior Bilateral Throughout] 02/14/21 02/14/21 02/14/21 22:31 22:36 22:41 Temperature Pulse Rate 90 86 98 H Respiratory Rate Blood Pressure Blood Pressure [Right] O2 Sat by Pulse 99 100 100 Oximetry O2 Sat by Pulse Oximetry [ Anterior Bilateral Throughout] 02/14/21 02/14/21 02/14/21 22:46 22:51 22:56 Temperature Pulse Rate 109 H 94 H 90 Respiratory Rate Blood Pressure Blood Pressure [Right] O2 Sat by Pulse 100 98 99 Oximetry O2 Sat by Pulse Oximetry [ Anterior Bilateral Throughout] 02/14/21 02/14/21 02/14/21 23:01 23:06 23:11 Temperature Pulse Rate 94 H 88 89 Respiratory Rate Blood Pressure Blood Pressure [Right] O2 Sat by Pulse 99 99 100 Oximetry O2 Sat by Pulse Oximetry [ Anterior Bilateral Throughout] 02/14/21 02/14/21 23:16 23:21 Temperature Pulse Rate 96 H 92 H Respiratory Rate Blood Pressure Blood Pressure [Right] O2 Sat by Pulse 100 99 Oximetry O2 Sat by Pulse Oximetry [ Anterior Bilateral Throughout] - Labs CBC & Chem 7: 02/13/21 23:02 02/14/21 07:30 Labs: Abnormal lab results 02/13/21 02/13/21 Range/Units 23:02 23:02 RBC 3.19 L (3.65-5.03) M/mm3 Hgb 9.5 L (10.1-14.3) gm/dl Hct 27.6 L (30.3-42.9) % MCHC 35 H (30-34) % [place] % (Auto) 7.4 H (0.0-7.3) % Seg Neutrophils % 73.7 H (40.0-70.0) % Potassium 2.9 L* (3.6-5.0) mmol/L
[2021-02-14] MEDS ORDERED: METOCLOPRAMIDE 10 MG/2 ML INJ IV ONE (23:34)
[2021-02-15] MEDS: NalbUPHINE 10 MG/1 ML INJ IV PRN ×5 (00:04→19:40)
[2021-02-15] MEDS: LACTATED RINGERS 1,000 ML IV SCH ×3 (04:11→23:52)
[2021-02-15] MEDS: ONDANSETRON 4 MG/2 ML INJ IV PRN ×4 (04:18→19:37)
--- NOTE | 2021-02-15 09:56 | Progress Note ---
Subjective - Subjective Date of service: 02/15/21 Principal diagnosis: IUP at 20.3wks with abd pain, gall stones, substance abuse Interval history: Plan for today: ambulate advance PO diet and pain meds D.C fajardo, up to bathroom ad kathie D/C to home in AM if meets goals Logan Mckay MD Patient reports: new complaints Objective - Vital Signs Vital Signs: Vital Signs - 12hr 02/14/21 02/14/21 02/14/21 21:56 22:01 22:06 Pulse Rate 81 87 85 Respiratory Rate Blood Pressure O2 Sat by Pulse 100 100 100 Oximetry O2 Sat by Pulse Oximetry [ Anterior Bilateral Throughout] 02/14/21 02/14/21 02/14/21 22:11 22:16 22:21 Pulse Rate 87 92 H 86 Respiratory Rate Blood Pressure O2 Sat by Pulse 100 100 100 Oximetry O2 Sat by Pulse Oximetry [ Anterior Bilateral Throughout] 02/14/21 02/14/21 02/14/21 22:26 22:31 22:36 Pulse Rate 96 H 90 86 Respiratory Rate Blood Pressure O2 Sat by Pulse 99 99 100 Oximetry O2 Sat by Pulse Oximetry [ Anterior Bilateral Throughout] 02/14/21 02/14/21 02/14/21 22:41 22:46 22:51 Pulse Rate 98 H 109 H 94 H Respiratory Rate Blood Pressure O2 Sat by Pulse 100 100 98 Oximetry O2 Sat by Pulse Oximetry [ Anterior Bilateral Throughout] 02/14/21 02/14/21 02/14/21 22:56 23:01 23:06 Pulse Rate 90 94 H 88 Respiratory Rate Blood Pressure O2 Sat by Pulse 99 99 99 Oximetry O2 Sat by Pulse Oximetry [ Anterior Bilateral Throughout] 02/14/21 02/14/21 02/14/21 23:11 23:16 23:21 Pulse Rate 89 96 H 92 H Respiratory Rate Blood Pressure O2 Sat by Pulse 100 100 99 Oximetry O2 Sat by Pulse Oximetry [ Anterior Bilateral Throughout] 02/14/21 02/14/21 02/14/21 23:26 23:31 23:33 Pulse Rate 107 H 93 H 92 H Respiratory Rate Blood Pressure 109/55 O2 Sat by Pulse 99 99 Oximetry O2 Sat by Pulse Oximetry [ Anterior Bilateral Throughout] 02/14/21 02/14/21 02/14/21 23:36 23:41 23:46 Pulse Rate 94 H 95 H 94 H Respiratory Rate Blood Pressure O2 Sat by Pulse 99 99 99 Oximetry O2 Sat by Pulse Oximetry [ Anterior Bilateral Throughout] 02/14/21 02/14/21 02/15/21 23:51 23:56 00:01 Pulse Rate 107 H 104 H 110 H Respiratory Rate Blood Pressure O2 Sat by Pulse 99 100 100 Oximetry O2 Sat by Pulse Oximetry [ Anterior Bilateral Throughout] 02/15/21 02/15/21 02/15/21 00:06 00:11 00:16 Pulse Rate 105 H 102 H 94 H Respiratory Rate Blood Pressure O2 Sat by Pulse 99 99 98 Oximetry O2 Sat by Pulse Oximetry [ Anterior Bilateral Throughout] 02/15/21 02/15/21 02/15/21 00:21 00:26 00:31 Pulse Rate 88 84 83 Respiratory Rate Blood Pressure O2 Sat by Pulse 98 100 98 Oximetry O2 Sat by Pulse Oximetry [ Anterior Bilateral Throughout] 02/15/21 02/15/21 02/15/21 00:36 00:41 00:46 Pulse Rate 86 81 84 Respiratory Rate Blood Pressure O2 Sat by Pulse 99 99 98 Oximetry O2 Sat by Pulse Oximetry [ Anterior Bilateral Throughout] 02/15/21 02/15/21 02/15/21 00:51 00:56 01:01 Pulse Rate 81 81 83 Respiratory Rate Blood Pressure O2 Sat by Pulse 99 99 99 Oximetry O2 Sat by Pulse Oximetry [ Anterior Bilateral Throughout] 02/15/21 02/15/21 02/15/21 01:06 01:11 01:16 Pulse Rate 80 103 H 89 Respiratory Rate Blood Pressure O2 Sat by Pulse 99 100 99 Oximetry O2 Sat by Pulse Oximetry [ Anterior Bilateral Throughout] 02/15/21 02/15/21 02/15/21 01:21 01:26 01:31 Pulse Rate 98 H 106 H 105 H Respiratory Rate Blood Pressure O2 Sat by Pulse 99 100 100 Oximetry O2 Sat by Pulse Oximetry [ Anterior Bilateral Throughout] 02/15/21 02/15/21 02/15/21 01:33 01:36 01:41 Pulse Rate 100 H 91 H 99 H Respiratory Rate Blood Pressure 116/55 O2 Sat by Pulse 99 99 Oximetry O2 Sat by Pulse Oximetry [ Anterior Bilateral Throughout] 02/15/21 02/15/21 02/15/21 01:46 01:51 01:56 Pulse Rate 86 92 H 92 H Respiratory Rate Blood Pressure O2 Sat by Pulse 99 100 98 Oximetry O2 Sat by Pulse Oximetry [ Anterior Bilateral Throughout] 02/15/21 02/15/21 02/15/21 02:01 02:06 02:11 Pulse Rate 85 80 81 Respiratory Rate Blood Pressure O2 Sat by Pulse 99 100 100 Oximetry O2 Sat by Pulse Oximetry [ Anterior Bilateral Throughout] 02/15/21 02/15/21 02/15/21 02:16 02:21 02:26 Pulse Rate 80 81 86 Respiratory Rate Blood Pressure O2 Sat by Pulse 99 98 99 Oximetry O2 Sat by Pulse Oximetry [ Anterior Bilateral Throughout] 02/15/21 02/15/21 02/15/21 02:31 02:36 02:41 Pulse Rate 78 81 81 Respiratory Rate Blood Pressure O2 Sat by Pulse 99 99 99 Oximetry O2 Sat by Pulse Oximetry [ Anterior Bilateral Throughout] 02/15/21 02/15/21 02/15/21 02:46 02:51 02:56 Pulse Rate 81 84 79 Respiratory Rate Blood Pressure O2 Sat by Pulse 99 99 99 Oximetry O2 Sat by Pulse Oximetry [ Anterior Bilateral Throughout] 02/15/21 02/15/21 02/15/21 03:01 03:06 03:11 Pulse Rate 81 80 82 Respiratory Rate Blood Pressure O2 Sat by Pulse 99 99 99 Oximetry O2 Sat by Pulse Oximetry [ Anterior Bilateral Throughout] 02/15/21 02/15/21 02/15/21 03:16 03:21 03:26 Pulse Rate 78 78 80 Respiratory Rate Blood Pressure O2 Sat by Pulse 99 100 99 Oximetry O2 Sat by Pulse Oximetry [ Anterior Bilateral Throughout] 02/15/21 02/15/21 02/15/21 03:31 03:33 03:36 Pulse Rate 79 75 82 Respiratory Rate Blood Pressure 100/56 O2 Sat by Pulse 100 100 Oximetry O2 Sat by Pulse Oximetry [ Anterior Bilateral Throughout] 02/15/21 02/15/21 02/15/21 03:41 03:46 03:51 Pulse Rate 81 79 81 Respiratory Rate Blood Pressure O2 Sat by Pulse 100 100 100 Oximetry O2 Sat by Pulse Oximetry [ Anterior Bilateral Throughout] 02/15/21 02/15/21 02/15/21 03:56 04:01 04:06 Pulse Rate 83 96 H 97 H Respiratory 14 Rate Blood Pressure O2 Sat by Pulse 99 99 98 Oximetry O2 Sat by Pulse Oximetry [ Anterior Bilateral Throughout] 02/15/21 02/15/21 02/15/21 04:11 04:16 04:21 Pulse Rate 92 H 91 H 83 Respiratory Rate Blood Pressure O2 Sat by Pulse 98 98 98 Oximetry O2 Sat by Pulse Oximetry [ Anterior Bilateral Throughout] 02/15/21 02/15/21 02/15/21 04:26 04:31 04:36 Pulse Rate 91 H 92 H 90 Respiratory Rate Blood Pressure O2 Sat by Pulse 99 100 99 Oximetry O2 Sat by Pulse Oximetry [ Anterior Bilateral Throughout] 02/15/21 02/15/21 02/15/21 04:41 04:46 04:51 Pulse Rate 98 H 88 85 Respiratory Rate Blood Pressure O2 Sat by Pulse 99 99 99 Oximetry O2 Sat by Pulse Oximetry [ Anterior Bilateral Throughout] 02/15/21 02/15/21 02/15/21 04:56 05:01 05:06 Pulse Rate 86 88 87 Respiratory Rate Blood Pressure O2 Sat by Pulse 99 99 98 Oximetry O2 Sat by Pulse Oximetry [ Anterior Bilateral Throughout] 02/15/21 02/15/21 02/15/21 05:11 05:16 05:21 Pulse Rate 94 H 89 88 Respiratory Rate Blood Pressure O2 Sat by Pulse 99 99 99 Oximetry O2 Sat by Pulse Oximetry [ Anterior Bilateral Throughout] 02/15/21 02/15/21 02/15/21 05:26 05:31 05:33 Pulse Rate 76 74 77 Respiratory Rate Blood Pressure 108/55 O2 Sat by Pulse 99 100 Oximetry O2 Sat by Pulse Oximetry [ Anterior Bilateral Throughout] 02/15/21 02/15/21 02/15/21 05:36 05:41 05:46 Pulse Rate 73 75 73 Respiratory Rate Blood Pressure O2 Sat by Pulse 100 100 100 Oximetry O2 Sat by Pulse Oximetry [ Anterior Bilateral Throughout] 02/15/21 02/15/21 02/15/21 05:51 05:56 06:01 Pulse Rate 78 70 64 Respiratory Rate Blood Pressure O2 Sat by Pulse 99 100 100 Oximetry O2 Sat by Pulse Oximetry [ Anterior Bilateral Throughout] 02/15/21 02/15/21 02/15/21 06:06 06:11 06:16 Pulse Rate 78 76 76 Respiratory Rate Blood Pressure O2 Sat by Pulse 100 100 99 Oximetry O2 Sat by Pulse Oximetry [ Anterior Bilateral Throughout] 02/15/21 02/15/21 02/15/21 06:21 06:26 06:31 Pulse Rate 79 75 74 Respiratory Rate Blood Pressure O2 Sat by Pulse 99 100 100 Oximetry O2 Sat by Pulse Oximetry [ Anterior Bilateral Throughout] 02/15/21 02/15/21 02/15/21 06:36 06:41 06:46 Pulse Rate 78 76 80 Respiratory Rate Blood Pressure O2 Sat by Pulse 99 99 99 Oximetry O2 Sat by Pulse Oximetry [ Anterior Bilateral Throughout] 02/15/21 02/15/21 02/15/21 06:51 06:56 07:01 Pulse Rate 77 85 88 Respiratory Rate Blood Pressure O2 Sat by Pulse 99 99 99 Oximetry O2 Sat by Pulse Oximetry [ Anterior Bilateral Throughout] 02/15/21 02/15/21 02/15/21 07:06 07:11 07:16 Pulse Rate 92 H 95 H 89 Respiratory Rate Blood Pressure O2 Sat by Pulse 99 100 98 Oximetry O2 Sat by Pulse Oximetry [ Anterior Bilateral Throughout] 02/15/21 02/15/21 02/15/21 07:21 07:26 07:31 Pulse Rate 87 102 H 81 Respiratory Rate Blood Pressure O2 Sat by Pulse 100 99 99 Oximetry O2 Sat by Pulse Oximetry [ Anterior Bilateral Throughout] 02/15/21 02/15/21 02/15/21 07:33 07:36 07:41 Pulse Rate 84 82 82 Respiratory Rate Blood Pressure 115/54 O2 Sat by Pulse 99 99 Oximetry O2 Sat by Pulse Oximetry [ Anterior Bilateral Throughout] 02/15/21 02/15/21 02/15/21 07:46 07:51 07:56 Pulse Rate 84 87 82 Respiratory Rate Blood Pressure O2 Sat by Pulse 99 99 100 Oximetry O2 Sat by Pulse Oximetry [ Anterior Bilateral Throughout] 02/15/21 02/15/21 02/15/21 08:01 08:06 08:11 Pulse Rate 83 78 86 Respiratory Rate Blood Pressure O2 Sat by Pulse 99 100 100 Oximetry O2 Sat by Pulse Oximetry [ Anterior Bilateral Throughout] 02/15/21 02/15/21 02/15/21 08:16 08:21 08:26 Pulse Rate 86 86 82 Respiratory Rate Blood Pressure O2 Sat by Pulse 100 100 99 Oximetry O2 Sat by Pulse Oximetry [ Anterior Bilateral Throughout] 02/15/21 02/15/21 02/15/21 08:31 08:36 08:41 Pulse Rate 87 98 H 83 Respiratory Rate Blood Pressure O2 Sat by Pulse 99 99 99 Oximetry O2 Sat by Pulse Oximetry [ Anterior Bilateral Throughout] 02/15/21 02/15/21 02/15/21 08:46 08:51 08:56 Pulse Rate 85 102 H 103 H Respiratory Rate Blood Pressure O2 Sat by Pulse 100 100 100 Oximetry O2 Sat by Pulse Oximetry [ Anterior Bilateral Throughout] 02/15/21 02/15/21 02/15/21 09:01 09:06 09:11 Pulse Rate 93 H 92 H 84 Respiratory Rate Blood Pressure O2 Sat by Pulse 100 98 99 Oximetry O2 Sat by Pulse Oximetry [ Anterior Bilateral Throughout] 02/15/21 02/15/21 02/15/21 09:14 09:16 09:21 Pulse Rate 89 90 Respiratory Rate Blood Pressure O2 Sat by Pulse 99 100 Oximetry O2 Sat by Pulse 100 Oximetry [ Anterior Bilateral Throughout] 02/15/21 02/15/21 02/15/21 09:26 09:31 09:33 Pulse Rate 102 H 88 90 Respiratory Rate Blood Pressure 114/59 O2 Sat by Pulse 100 100 Oximetry O2 Sat by Pulse Oximetry [ Anterior Bilateral Throughout] 02/15/21 02/15/21 02/15/21 09:36 09:41 09:46 Pulse Rate 96 H 88 87 Respiratory Rate Blood Pressure O2 Sat by Pulse 100 100 90 Oximetry O2 Sat by Pulse Oximetry [ Anterior Bilateral Throughout] 02/15/21 09:51 Pulse Rate 86 Respiratory Rate Blood Pressure O2 Sat by Pulse 96 Oximetry O2 Sat by Pulse Oximetry [ Anterior Bilateral Throughout] - Labs Labs: Abnormal Labs 02/11/21 02/11/21 02/12/21 18:30 18:30 10:22 WBC 18.2 H RBC 3.35 L Hgb Hct 28.8 L MCHC 35 H Lymph % (Auto) 6.7 L [place] % (Auto) [place] # (Auto) 1.0 H Seg Neutrophils % 87.6 H Seg Neutrophils # 15.9 H Sodium 135 L Potassium 3.1 L Carbon Dioxide 18 L BUN 4 L Creatinine 0.3 L Albumin 3.4 L Amylase 20 L Lipase 6 L 02/13/21 02/13/21 23:02 23:02 WBC RBC 3.19 L Hgb 9.5 L Hct 27.6 L MCHC 35 H Lymph % (Auto) [place] % (Auto) 7.4 H [place] # (Auto) Seg Neutrophils % 73.7 H Seg Neutrophils # Sodium Potassium 2.9 L* Carbon Dioxide BUN Creatinine Albumin Amylase Lipase
[2021-02-15] MEDS: SERTRALINE 25 MG TAB PO SCH (09:59)
[2021-02-15] MEDS ORDERED: KETOROLAC 30 MG/1 ML INJ IV ONE (18:56)
--- NOTE | 2021-02-15 19:06 | Progress Note ---
Assessment and Plan 30-year-old female status post laparoscopic cholecystectomy, postop day 1 Plan: 1. diet as maryana 2. IVF 3. 1 dose IV toradol 4. etiology of lower abdominal pain ?. Unlikely related to cholecystectomy. ?Contractions. Will defer to 1' service 5. prn pain and nausea control 6. DVT ppx Thank you, please call with questions Subjective Date of service: 02/15/21 Narrative: Pt seen and examined. c/o lower abdominal crampy pain. She has been given IV pain meds per OB which she states did help earlier in the day. She had episodes of emesis today that consisted of small amount of frothy sputum, nonbilious/nonbloody. No f/c. Was able to sleep last night with some soreness of incisions. Objective Vital Signs - 12hr 02/15/21 02/15/21 02/15/21 07:06 07:11 07:16 Pulse Rate 92 H 95 H 89 Blood Pressure O2 Sat by Pulse 99 100 98 Oximetry O2 Sat by Pulse Oximetry [ Anterior Bilateral Throughout] 02/15/21 02/15/21 02/15/21 07:21 07:26 07:31 Pulse Rate 87 102 H 81 Blood Pressure O2 Sat by Pulse 100 99 99 Oximetry O2 Sat by Pulse Oximetry [ Anterior Bilateral Throughout] 02/15/21 02/15/21 02/15/21 07:33 07:36 07:41 Pulse Rate 84 82 82 Blood Pressure 115/54 O2 Sat by Pulse 99 99 Oximetry O2 Sat by Pulse Oximetry [ Anterior Bilateral Throughout] 02/15/21 02/15/21 02/15/21 07:46 07:51 07:56 Pulse Rate 84 87 82 Blood Pressure O2 Sat by Pulse 99 99 100 Oximetry O2 Sat by Pulse Oximetry [ Anterior Bilateral Throughout] 02/15/21 02/15/21 02/15/21 08:01 08:06 08:11 Pulse Rate 83 78 86 Blood Pressure O2 Sat by Pulse 99 100 100 Oximetry O2 Sat by Pulse Oximetry [ Anterior Bilateral Throughout] 02/15/21 02/15/21 02/15/21 08:16 08:21 08:26 Pulse Rate 86 86 82 Blood Pressure O2 Sat by Pulse 100 100 99 Oximetry O2 Sat by Pulse Oximetry [ Anterior Bilateral Throughout] 02/15/21 02/15/21 02/15/21 08:31 08:36 08:41 Pulse Rate 87 98 H 83 Blood Pressure O2 Sat by Pulse 99 99 99 Oximetry O2 Sat by Pulse Oximetry [ Anterior Bilateral Throughout] 02/15/21 02/15/21 02/15/21 08:46 08:51 08:56 Pulse Rate 85 102 H 103 H Blood Pressure O2 Sat by Pulse 100 100 100 Oximetry O2 Sat by Pulse Oximetry [ Anterior Bilateral Throughout] 02/15/21 02/15/21 02/15/21 09:01 09:06 09:11 Pulse Rate 93 H 92 H 84 Blood Pressure O2 Sat by Pulse 100 98 99 Oximetry O2 Sat by Pulse Oximetry [ Anterior Bilateral Throughout] 02/15/21 02/15/21 02/15/21 09:14 09:16 09:21 Pulse Rate 89 90 Blood Pressure O2 Sat by Pulse 99 100 Oximetry O2 Sat by Pulse 100 Oximetry [ Anterior Bilateral Throughout] 02/15/21 02/15/21 02/15/21 09:26 09:31 09:33 Pulse Rate 102 H 88 90 Blood Pressure 114/59 O2 Sat by Pulse 100 100 Oximetry O2 Sat by Pulse Oximetry [ Anterior Bilateral Throughout] 02/15/21 02/15/21 02/15/21 09:36 09:41 09:46 Pulse Rate 96 H 88 87 Blood Pressure O2 Sat by Pulse 100 100 90 Oximetry O2 Sat by Pulse Oximetry [ Anterior Bilateral Throughout] 02/15/21 02/15/21 02/15/21 09:51 09:56 10:01 Pulse Rate 86 89 101 H Blood Pressure O2 Sat by Pulse 96 98 99 Oximetry O2 Sat by Pulse Oximetry [ Anterior Bilateral Throughout] 02/15/21 02/15/21 02/15/21 10:06 10:11 10:16 Pulse Rate 95 H 94 H 91 H Blood Pressure O2 Sat by Pulse 99 100 99 Oximetry O2 Sat by Pulse Oximetry [ Anterior Bilateral Throughout] 02/15/21 02/15/21 02/15/21 10:21 10:26 10:31 Pulse Rate 86 92 H 83 Blood Pressure O2 Sat by Pulse 99 100 99 Oximetry O2 Sat by Pulse Oximetry [ Anterior Bilateral Throughout] 02/15/21 02/15/21 02/15/21 10:36 10:41 10:46 Pulse Rate 85 86 82 Blood Pressure O2 Sat by Pulse 100 100 100 Oximetry O2 Sat by Pulse Oximetry [ Anterior Bilateral Throughout] 02/15/21 02/15/21 02/15/21 10:51 10:56 11:01 Pulse Rate 90 88 82 Blood Pressure O2 Sat by Pulse 100 100 99 Oximetry O2 Sat by Pulse Oximetry [ Anterior Bilateral Throughout] 02/15/21 02/15/21 02/15/21 11:06 11:11 11:16 Pulse Rate 97 H 84 100 H Blood Pressure O2 Sat by Pulse 99 100 100 Oximetry O2 Sat by Pulse Oximetry [ Anterior Bilateral Throughout] 02/15/21 02/15/21 02/15/21 11:21 11:26 11:31 Pulse Rate 94 H 85 87 Blood Pressure O2 Sat by Pulse 100 100 100 Oximetry O2 Sat by Pulse Oximetry [ Anterior Bilateral Throughout] 02/15/21 02/15/21 02/15/21 11:33 11:36 11:41 Pulse Rate 91 H 82 96 H Blood Pressure 100/55 O2 Sat by Pulse 99 100 Oximetry O2 Sat by Pulse Oximetry [ Anterior Bilateral Throughout] 02/15/21 02/15/21 02/15/21 11:46 11:51 11:56 Pulse Rate 77 82 83 Blood Pressure O2 Sat by Pulse 99 99 99 Oximetry O2 Sat by Pulse Oximetry [ Anterior Bilateral Throughout] 02/15/21 02/15/21 02/15/21 12:01 12:06 12:11 Pulse Rate 80 81 83 Blood Pressure O2 Sat by Pulse 99 100 100 Oximetry O2 Sat by Pulse Oximetry [ Anterior Bilateral Throughout] 02/15/21 02/15/21 02/15/21 12:16 12:21 12:26 Pulse Rate 88 87 82 Blood Pressure O2 Sat by Pulse 100 99 99 Oximetry O2 Sat by Pulse Oximetry [ Anterior Bilateral Throughout] 02/15/21 02/15/21 02/15/21 12:31 12:36 12:41 Pulse Rate 85 98 H 104 H Blood Pressure O2 Sat by Pulse 99 99 100 Oximetry O2 Sat by Pulse Oximetry [ Anterior Bilateral Throughout] 02/15/21 02/15/21 12:46 12:50 Pulse Rate 87 85 Blood Pressure 101/55 O2 Sat by Pulse 100 Oximetry O2 Sat by Pulse Oximetry [ Anterior Bilateral Throughout] - General physical appearance Narrative Exam: Gen.: Awake, alert, oriented x3. Appears uncomfortable due to lower abdominal pain ENT: Trachea midline. No lymphadenopathy. No scleral icterus or conjunctival pallor CV: S1, S2 present Respiratory: No audible wheezes Abdomen: Nondistended. Surgical incisions c/d/i. Pt only allowed visual exam Extremities: No clubbing, cyanosis, edema - Labs 02/13/21 23:02 02/14/21 07:30
[2021-02-15] MEDS: oxyCODONE /ACETAMINOPHEN 5-325MG TAB PO PRN (21:41)
--- NOTE | 2021-02-16 00:05 | Progress Note ---
Assessment and Plan --Abdominal pain; due to gallbladder/gallstone disease vs postoperative ileus Bowel regimen, continue pain medications, IV fluids Clear liquid diet, if no improvement may need repeat scanning --Gallstones/gallbladder sludge Surgery evaluated the patient s/p lap cholecystectomy 02/14/2021 Continue current management --Constipation; improved Plenty oral fluids, stool softeners, bowel regimen --; management per [employer]ATIONS [employer]OR --Closely monitor patient and adjust management as needed Subjective Date of service: 02/15/21 Principal diagnosis: IUP at 20.3wks with abd pain, gall stones, substance abuse Interval history: Patient seen and examined. Medical records and medication list reviewed. Continue to complains of severe abdominal pain along with nausea and vomiting Status post laparoscopic cholecystectomy day 2 Discussed plan of care at bedside with patient. Objective - Exam Narrative Exam: GENERAL: well-developed -Citizen Of [place] male lying on bed appeared to be in mild discomfort. HEENT: Normocephalic. Atraumatic. No conjunctival congestion or icterus. Patient has moist mucous membranes. NECK: Supple. Trachea midline. CHEST/LUNGS: Clear to auscultated bilaterally, breathing nonlabored. No wheezes crackles or rhonchi. HEART/CARDIOVASCULAR: Regular in rate and rhythm. S1 and S2 positive. ABDOMEN: Abdomen is soft, Patient has normal bowel sounds. Abdomen tender but no rigidity SKIN: There is no rash. Warm and dry. NEURO: No focal motor deficit. Follows command. MUSCULOSKELETAL: No joint effusion or tenderness. EXTRIMITY: No edema, no cyanosis or clubbing. PSYCH: Cooperative. - Constitutional Vitals: Vital Signs - 12hr 02/15/21 02/15/21 02/15/21 12:06 12:11 12:16 Temperature Pulse Rate 81 83 88 Respiratory Rate Blood Pressure O2 Sat by Pulse 100 100 100 Oximetry O2 Sat by Pulse Oximetry [ Anterior Bilateral Throughout] 02/15/21 02/15/21 02/15/21 12:21 12:26 12:31 Temperature Pulse Rate 87 82 85 Respiratory Rate Blood Pressure O2 Sat by Pulse 99 99 99 Oximetry O2 Sat by Pulse Oximetry [ Anterior Bilateral Throughout] 02/15/21 02/15/21 02/15/21 12:36 12:41 12:46 Temperature Pulse Rate 98 H 104 H 87 Respiratory Rate Blood Pressure O2 Sat by Pulse 99 100 100 Oximetry O2 Sat by Pulse Oximetry [ Anterior Bilateral Throughout] 02/15/21 02/15/21 02/15/21 12:50 18:30 19:40 Temperature 97.6 F Pulse Rate 85 Respiratory 20 Rate Blood Pressure 101/55 O2 Sat by Pulse Oximetry O2 Sat by Pulse Oximetry [ Anterior Bilateral Throughout] 02/15/21 02/15/21 02/15/21 19:47 21:41 23:56 Temperature 98.3 F Pulse Rate 90 75 Respiratory 20 20 Rate Blood Pressure 130/69 102/58 O2 Sat by Pulse Oximetry O2 Sat by Pulse 100 Oximetry [ Anterior Bilateral Throughout] 02/16/21 00:00 Temperature Pulse Rate 78 Respiratory Rate Blood Pressure O2 Sat by Pulse 100 Oximetry O2 Sat by Pulse Oximetry [ Anterior Bilateral Throughout] - Labs CBC & Chem 7: 02/13/21 23:02 02/14/21 07:30
[2021-02-16] MEDS: ONDANSETRON 4 MG/2 ML INJ IV PRN ×2 (03:29→21:46)
[2021-02-16] MEDS: oxyCODONE /ACETAMINOPHEN 5-325MG TAB PO PRN (03:36)
[2021-02-16] MEDS ORDERED: LORazepam 2 MG/ML VIAL IV ONE (05:01)
--- NOTE | 2021-02-16 09:07 | Progress Note ---
Assessment and Plan - Patient Problems (1) Gall bladder disease Current Visit: Yes Status: Acute Plan to address problem: POD2 s/p lap teressa. Advance care as tolerated. General surgery following. (2) Anxiety Onset Date: 07/14/14 Current Visit: No Status: Acute Plan to address problem: --s/p psych consult. Started on Zoloft 25mg. 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 (3) Constipation Current Visit: No Status: Acute Plan to address problem: --On bowel regimen. Continue to monitor. (4) Abdominal pain Onset Date: 07/12/14 Current Visit: No Status: Acute Plan to address problem: Postoperative generalized abdominal pain could be secondary to early ileus now status post first episode of flatus postoperatively last night. Will attempt to de-escalate diet with clears and if nausea vomiting persist will consider abdominal imaging to further evaluate for ileus. Add Gas-X to medical management. Subjective - Subjective Date of service: 02/16/21 Principal diagnosis: IUP at 20.3wks with abd pain, gall stones, substance abuse Interval history: Patient reports that she is feeling overall okay. Patient reports having a tough day yesterday with significant nausea vomiting with p.o. intake. Patient reports the generalized abdominal pain is overall controlled right now. Patient reports just passing flatus for the first time postoperatively last night. No complaints. Objective - Vital Signs Vital Signs: Vital Signs - 12hr 02/15/21 02/15/21 02/16/21 21:41 23:56 00:00 Temperature 99.0 F Pulse Rate 75 78 Respiratory 20 20 Rate Blood Pressure 102/58 O2 Sat by Pulse 100 Oximetry 02/16/21 02/16/21 02/16/21 03:35 03:36 04:36 Temperature 98.0 F Pulse Rate 66 77 Respiratory 18 18 Rate Blood Pressure 105/54 O2 Sat by Pulse 99 Oximetry - Exam Cardiovascular: Regular rate Lungs: Clear to auscultation, Normal air movement Abdomen: Present: distention (mild) Uterus: Present: normal FHR: category 1 Uterine Contraction Monitor Mode: External - Labs Labs: Abnormal Labs 02/11/21 02/11/21 02/12/21 18:30 18:30 10:22 WBC 18.2 H RBC 3.35 L Hgb Hct 28.8 L MCHC 35 H Lymph % (Auto) 6.7 L [place] % (Auto) [place] # (Auto) 1.0 H Seg Neutrophils % 87.6 H Seg Neutrophils # 15.9 H Sodium 135 L Potassium 3.1 L Carbon Dioxide 18 L BUN 4 L Creatinine 0.3 L Albumin 3.4 L Amylase 20 L Lipase 6 L 02/13/21 02/13/21 23:02 23:02 WBC RBC 3.19 L Hgb 9.5 L Hct 27.6 L MCHC 35 H Lymph % (Auto) [place] % (Auto) 7.4 H [place] # (Auto) Seg Neutrophils % 73.7 H Seg Neutrophils # Sodium Potassium 2.9 L* Carbon Dioxide BUN Creatinine Albumin Amylase Lipase
[2021-02-16] MEDS ORDERED: SIMETHICONE 80 MG CHEW TAB PO PRN (09:30)
--- NOTE | 2021-02-16 10:44 | XRay Report ---
ABDOMEN 1 VIEW INDICATION / CLINICAL INFORMATION: Unspecified abdominal pain, 21 weeks . COMPARISON: None available. FINDINGS: TUBES / LINES: None. BOWEL GAS PATTERN: No significant abnormality. FREE AIR / EXTRALUMINAL GAS: None seen. ADDITIONAL FINDINGS: An intrauterine is partially visualized. IMPRESSION: 1. No significant abnormality to explain the patient's pain. Signer Name: Praveen Burdick MD Signed: 02/16/2021 10:40 AM Workstation Name: [email or web address]
[2021-02-16] MEDS: SERTRALINE 25 MG TAB PO SCH ×2 (10:50→21:28)
[2021-02-16] MEDS: ACETAMINOPHEN IV 1,000 MG/100 ML BOTTLE IV SCH ×2 (17:13→22:17)
--- NOTE | 2021-02-16 17:39 | Progress Note ---
Assessment and Plan --Abdominal pain; due to gallbladder/gallstone disease vs postoperative ileus Bowel regimen, continue pain medications, IV fluids Clear liquid diet, repeat abdominal x-ray without any acute finding GI consulted and recommended antispasmodic --Gallstones/gallbladder sludge Surgery evaluated the patient s/p lap cholecystectomy 02/14/2021 Continue current management --Constipation; improved Plenty oral fluids, stool softeners, bowel regimen --; management per OPTOMETRY PROFESSOR --Closely monitor patient and adjust management as needed. no specific cause for abdominal pain, consider psych consult Subjective Date of service: 02/16/21 Principal diagnosis: IUP at 20.3wks with abd pain, gall stones, substance abuse Interval history: Patient seen and examined. Medical records and medication list reviewed. Continue to complains of severe abdominal pain along with nausea and vomiting Status post laparoscopic cholecystectomy day 3 Discussed plan of care at bedside with patient's RN. Objective - Exam Narrative Exam: GENERAL: well-developed -Polish male lying on bed appeared to be in mild discomfort. HEENT: Normocephalic. Atraumatic. No conjunctival congestion or icterus. Patient has moist mucous membranes. NECK: Supple. Trachea midline. CHEST/LUNGS: Clear to auscultated bilaterally, breathing nonlabored. No wheezes crackles or rhonchi. HEART/CARDIOVASCULAR: Regular in rate and rhythm. S1 and S2 positive. ABDOMEN: Abdomen is soft, Patient has normal bowel sounds. Abdomen tender but no rigidity SKIN: There is no rash. Warm and dry. NEURO: No focal motor deficit. Follows command. MUSCULOSKELETAL: No joint effusion or tenderness. EXTRIMITY: No edema, no cyanosis or clubbing. PSYCH: Cooperative. - Constitutional Vitals: Vital Signs - 12hr 02/16/21 02/16/21 02/16/21 08:00 09:52 09:58 Temperature Pulse Rate 101 H 50 L Blood Pressure O2 Sat by Pulse 98 93 Oximetry O2 Sat by Pulse 97 Oximetry [ Anterior Bilateral Throughout] 02/16/21 02/16/21 09:59 10:03 Temperature 98.3 F Pulse Rate 96 H Blood Pressure 120/63 O2 Sat by Pulse Oximetry O2 Sat by Pulse Oximetry [ Anterior Bilateral Throughout] - Labs CBC & Chem 7: 02/13/21 23:02 02/14/21 07:30
--- NOTE | 2021-02-16 17:45 | Event Note ---
Date: 02/16/21 Full consult dictated - pt 20 wks now 2 months abdominal pain unclear etiology s/p recent lap c hole - pt w/ noted anxiety - suspect functional component to pt's pain - no indications for scope - will review imaging - surgery input noted - would continue antiemetic while starting Hyoscyamine SL q4prn (if ok w/ OB) - will follow
[2021-02-16] MEDS: LACTATED RINGERS 1,000 ML IV SCH (18:41)
[2021-02-16] MEDS: HYOSCYAMINE SUBL 0.125 MG TAB SL SCH ×2 (18:41→22:16)
[2021-02-17] MEDS: LACTATED RINGERS 1,000 ML IV SCH (02:00)
[2021-02-17] MEDS: HYOSCYAMINE SUBL 0.125 MG TAB SL SCH ×4 (03:54→14:41)
[2021-02-17] MEDS: ACETAMINOPHEN IV 1,000 MG/100 ML BOTTLE IV SCH (04:00)
--- NOTE | 2021-02-17 08:11 | Consultation ---
DATE OF CONSULTATION: 02/16/2021 REFERRING PHYSICIAN: Dr. Farideh Conroy INDICATIONS: 1. Abdominal pain. 2. Constipation. HISTORY OF PRESENT ILLNESS: The patient is a 30-year-old black female, now 20 weeks been seen by GI for abdominal pain. Patient reports during her previous pregnancies, she has had recurrent abdominal pain and usually has to get IV pain medications. The patient was evaluated and found to have possible gallbladder disease and had a laparoscopic cholecystectomy performed on 02/15/2021. The patient reports today still having abdominal pain, especially after eating along with nausea and vomiting. The patient feels she cannot keep anything down. The patient does have a history of anxiety and stress. She does also have a history of some drug use. She denies any other specific complaints except for some constipation. PAST MEDICAL HISTORY: Negative. MEDICATIONS: Reviewed and updated in chart. ALLERGIES: No known drug allergies. SOCIAL HISTORY: Positive alcohol. Positive marijuana use. FAMILY HISTORY: Negative for colon cancer, IBD, or liver disease. REVIEW OF SYSTEMS: GENERAL: Reports some general weakness. HEENT: Denies visual complaints or tinnitus. PULMONARY: Reports some mild shortness of breath, has chest pain. GASTROINTESTINAL: Reports abdominal pain. All points of 13-point review of systems otherwise negative. PHYSICAL EXAMINATION: VITAL SIGNS: Temperature of 98.6, pulse 74, respirations 18, blood pressure 100/60. GENERAL: Fairly thin black female in mild distress. HEENT: Pupils round and reactive. PULMONARY: Clear to auscultation bilaterally. CARDIOVASCULAR: Regular rate and rhythm. Normal S1, S2. ABDOMEN: Positive bowel sounds, soft. SKIN: No obvious rashes. LABORATORY DATA: Pertinent for white count of 9, hemoglobin and hematocrit 9.5 and 27.6, platelet count of 283. Chem-7 within normal limits. ASSESSMENT: A 30-year-old black female, now 20 weeks , status post recent laparoscopic cholecystectomy for gallstones, now with diffuse abdominal pain. The patient reports she is also very nauseous and unable to keep anything down and feels anything she does aggravates her pain, nausea and vomiting. The patient is very anxious about her situation and verbalizes that her efforts are not helping her. The patient, especially verbalizes that anything oral including meds will only exacerbate her symptoms. Examination today shows more discomfort in the area of the incisions from her recent laparoscopic cholecystectomy. I think her issues are multifactorial and I think anxiety is playing somewhat of a role in her symptoms. Management as noted below. PLAN: 1. We will review imaging. 2. We will review labs. 3. Continue antiemetics per primary team. 4. We will start hyoscyamine sublingual 1 tablet p.o. q. 4 hours p.r.n. 5. Would give anxiolytics to help control symptoms. 6. We will follow for now. Further recommendation based on progress. TID: [id number] RECEIPT: [id number] SHANKAR/SHIRA
--- NOTE | 2021-02-17 09:25 | Progress Note ---
Assessment and Plan - Patient Problems (1) Gall bladder disease Current Visit: Yes Status: Acute Plan to address problem: POD3 s/p lap teressa. Advance care as tolerated. General surgery signed off. (2) Anxiety Onset Date: 07/14/14 Current Visit: No Status: Acute Plan to address problem: --s/p psych consult. Started on Zoloft 25mg. 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 Likely psychological component of patient's abdominal complaints. (3) Constipation Current Visit: No Status: Acute Plan to address problem: --On bowel regimen. Continue to monitor. (4) Abdominal pain Onset Date: 07/12/14 Current Visit: No Status: Acute Plan to address problem: Status post GI consult. Likely functional abdominal pain given chronic nature x2 months. Appreciated recommendations. Advance care as tolerated. --ODT Zofran and rectal phenergan prior to eating --Anticipate discharge Subjective - Subjective Date of service: 02/17/21 Principal diagnosis: IUP at 20.3wks with abd pain, gall stones, substance abuse Interval history: Patient reports that she is feeling overall okay. Reports able to have some peers in practice.. Patient reports the generalized abdominal pain is overall controlled right now. Patient reports passing flatus however with no significant bowel movements. No complaints. Patient reports: new complaints Objective - Vital Signs Vital Signs: Vital Signs - 12hr 02/17/21 02/17/21 02/17/21 03:56 07:30 07:34 Temperature 98.6 F 98.3 F Pulse Rate 74 79 Respiratory 16 18 Rate Blood Pressure 96/51 102/50 Blood Pressure 96/51 [Right] O2 Sat by Pulse 100 Oximetry O2 Sat by Pulse 98 Oximetry [ Anterior Bilateral Throughout] - Exam Abdomen: Present: normal appearance, soft, normal bowel sounds Uterus: Present: normal FHR: category 1 Uterine Contraction Monitor Mode: External Uterine Contraction Pattern: Absent - Labs Labs: Abnormal Labs 02/11/21 02/11/21 02/12/21 18:30 18:30 10:22 WBC 18.2 H RBC 3.35 L Hgb Hct 28.8 L MCHC 35 H Lymph % (Auto) 6.7 L [place] % (Auto) [place] # (Auto) 1.0 H Seg Neutrophils % 87.6 H Seg Neutrophils # 15.9 H Sodium 135 L Potassium 3.1 L Carbon Dioxide 18 L BUN 4 L Creatinine 0.3 L Albumin 3.4 L Amylase 20 L Lipase 6 L 02/13/21 02/13/21 23:02 23:02 WBC RBC 3.19 L Hgb 9.5 L Hct 27.6 L MCHC 35 H Lymph % (Auto) [place] % (Auto) 7.4 H [place] # (Auto) Seg Neutrophils % 73.7 H Seg Neutrophils # Sodium Potassium 2.9 L* Carbon Dioxide BUN Creatinine Albumin Amylase Lipase
[2021-02-17] MEDS ORDERED: PROMETHAZINE 25 MG RECT SUPP PR PRN (09:30)
[2021-02-17] MEDS ORDERED: ONDANSETRON 8 MG ODT TAB PO PRN (09:30)
[2021-02-17] MEDS: SERTRALINE 25 MG TAB PO SCH (09:39)
[2021-02-17] MEDS ORDERED: POLYETHYLENE GLYCOL 3350 17 GM POWDER PO PRN (11:00)
--- NOTE | 2021-02-17 13:43 | Discharge Summary ---
Providers - Providers Date of Admission: 02/12/21 14:11 Date of discharge: 02/17/21 Attending physician: NATASHA HOWELL 02/11/21 19:16 Consult to Physician [CONS] Stat Comment: Consulting Provider: CHLOE KIM Physician Instructions: Reason For Exam: preg, c/o abdominal pain; pt believes constipation 02/12/21 00:23 Consult to Physician [CONS] Stat Comment: Consulting Provider: DANNI FREY Physician Instructions: Reason For Exam: IUP at 21.5wks, abd pain,gall stones, leucocytosis 02/12/21 07:22 Consult to Physician [CONS] Routine Comment: Consulting Provider: [facility] Physician Instructions: Reason For Exam: IUP at 21.5wks, gall stones, abd pain 02/12/21 08:21 Consult to Physician [CONS] Routine Comment: Consulting Provider: JOANNA CHAVARRIA Physician Instructions: Reason For Exam: mood DO, verbal outburst, substance abuse, preg 02/16/21 12:01 psychiatry consult [Consult to Mental Health] [CONS] Routine Reason For Exam: patient states thoughts of harm with no intentions 02/16/21 12:02 Consult to Physician [CONS] Stat Comment: 20 weeks Consulting Provider: [facility] Physician Instructions: Reason For Exam: persistent abdominal pain s/p lap teressa, no ileus Primary care physician: NATASHA HOWELL Hospitalization Reason for admission: other (abdominal pain) Procedure: other (lap teressa by Gen Surgery) Incision: normal Hospital course: 30yo at 21.5wks by pt's report however report later obtained here has EDC 06/29/21 therefore IUP really at 20.3wks with PNC with [facility] presenting with contraction, N/V, generalized lower abdoinal pain x 2 months. No evidence of labor, but persistent abdominal pain. Labs and imaging concerning or cholesystitis s/p lap teressa by Gen surgery on 02/14/21. However with persistnet abdominal pain, possibly mutlifactorial. Psych, hospitalist, and GI were consulted. Patient with passive SI reports, but ok for discharge by psych. Started on Zoloft. Patient did demonstrate some characteristic of possible drug seeking behaviors during admission, demand particular IV pain medications, refusing po options. Patient with repeated non-specific writhing in pain and N/V without significant emesis. Patient on multiple occasions was verbally abusive, particularly to nursing staff. GI consulted and favored functional abdominal pain and recommended medication for GI spasm with improvement of abdominal pain. Patient discharged in fair/good condition on 02/17/21 with antiemetics, GI spasm medication, pain medication, and constipation medication. Condition at discharge: Good Disposition: 01 HOME / SELF CARE / HOMELESS - Discharge Diagnoses (1) Gall bladder disease Status: Acute (2) Anxiety Status: Acute (3) Constipation Status: Acute (4) Abdominal pain Status: Acute Plan - Discharge Medications Prescriptions: Acetaminophen [Acetaminophen TAB] 650 mg PO Q4H PRN #90 tablet PRN Reason: Pain MILD(1-3)/Fever >100.5/FRANCISCO Docusate Sodium [Colace] 100 mg PO BID PRN #60 capsule PRN Reason: Constipation Hyoscyamine Subl [Levsin Sl 0.125 TAB] 0.125 mg SL Q4H #120 tablet oxyCODONE /ACETAMINOPHEN [Percocet 5/325 mg] 2 tab PO Q6H PRN #20 tablet PRN Reason: Pain, Moderate (4-6) Promethazine [Phenergan SUPPOS] 25 mg SD Q6H PRN #90 supp.rect PRN Reason: Nausea And Vomiting Ondansetron [Zofran ODT TAB] 8 mg PO Q8H PRN #90 tab.rapdis PRN Reason: Nausea And Vomiting Sertraline [Zoloft] 25 mg PO QDAY #30 tablet - Provider Discharge Summary Additional instructions: [] Smoking cessation referral if applicable(refer to patient education folder for contact #) [] Refer to [facility]'s [facility] Booklet Call your doctor immediately for: * Fever > 100.5 * Heavy vaginal bleeding ( >1 pad per hour) * Severe persistent headache * Shortness of breath * Reddened, hot, painful area to leg or breast * Drainage or odor from incision. * Keep incision clean and dry at all times and follow doctor's instructions regarding bathing/showering - Follow up plan Follow up: NATASHA HOWELL MD [Primary Care Provider] - 7 Days DANNI FREY DO [Staff Physician] - 14 Days
[2021-02-17 13:53] VITALS: BP 118/58
--- NOTE | 2021-02-17 15:07 | Gastroenterology Progress Note ---
Assessment and Plan GI: pt s/p teressa 30 wks - suspect large anxiety component to symptoms - overall improved - continue Hyoscyamine per primary team - ok to dc, will sign off Subjective Date of service: 02/17/21 Principal diagnosis: IUP at 20.3wks with abd pain, gall stones, substance abuse Interval history: - pt overall improved Objective - Constitutional Vitals: Temp Pulse Resp BP Pulse Ox 98.2 F 80 18 118/58 98 02/17/21 14:00 02/17/21 13:52 02/17/21 14:00 02/17/21 13:52 02/17/21 07:30 General appearance: no acute distress - EENT Eyes: PERRL - Respiratory Respiratory: bilateral: CTA - Cardiovascular Rhythm: regular Heart Sounds: Present: S1 & S2 - Gastrointestinal General gastrointestinal: Present: soft, non-tender, non-distended - Labs CBC & Chem 7: 02/13/21 23:02 02/14/21 07:30
--- NOTE | 2021-02-18 09:27 | Progress Note ---
Assessment and Plan --Abdominal pain; due to gallbladder/gallstone disease vs postoperative ileus Bowel regimen, continue pain medications, IV fluids advance diet as tolerated, repeat abdominal x-ray without any acute finding GI consulted and recommended antispasmodic --Gallstones/gallbladder sludge Surgery evaluated the patient s/p lap cholecystectomy 02/14/2021 Continue current management --Anemia, monitor h/h, outpt f/u --Constipation; improved Plenty oral fluids, stool softeners, bowel regimen --; management per GAS DISPENSER --Closely monitor patient and adjust management as needed. pt doing better, planning for discharge today Subjective Date of service: 02/17/21 Principal diagnosis: IUP at 20.3wks with abd pain, gall stones, substance abuse Interval history: Patient seen and examined. Medical records and medication list reviewed. pt feeling better, no abdominal pain N/V, tolerating diet Discussed plan of care at bedside with patient's RN. Objective - Exam Narrative Exam: GENERAL: well-developed -[place] male lying on bed appeared to be in no discomfort. HEENT: Normocephalic. Atraumatic. No conjunctival congestion or icterus. Patient has moist mucous membranes. NECK: Supple. Trachea midline. CHEST/LUNGS: Clear to auscultated bilaterally, breathing nonlabored. No wheezes crackles or rhonchi. HEART/CARDIOVASCULAR: Regular in rate and rhythm. S1 and S2 positive. ABDOMEN: Abdomen is soft, Patient has normal bowel sounds. no tender no rigidity SKIN: There is no rash. Warm and dry. NEURO: No focal motor deficit. Follows command. MUSCULOSKELETAL: No joint effusion or tenderness. EXTRIMITY: No edema, no cyanosis or clubbing. PSYCH: Cooperative. - Labs CBC & Chem 7: 02/13/21 23:02 02/14/21 07:30
== END 2021-02-17 15:00 | disposition home or self-care (01) | DRG 819 ==
LOC: TRG 15:55 → APU 15:57 → LD 02-12 00:12 → TRG 02-12 14:11 → LD 02-12 14:11 → OBSVTOIN 02-12 14:11 → INTOOBSV 02-12 14:11
PROVIDERS: ADMIT Obstetrics & Gynecology; ATTEND Obstetrics & Gynecology
PROC: 0FT44ZZ Resection of Gallbladder, Percutaneous Endoscopic Approach (ICD-10-PCS; principal; 2021-02-14)
PROC: 0FJ44ZZ Inspection of Gallbladder, Percutaneous Endoscopic Approach (ICD-10-PCS; 2021-02-14)
DX: O99.612 Diseases of the digestive system complicating pregnancy, second trimester (principal); Z20.822 Contact with and (suspected) exposure to COVID-19; Z3A.20 20 weeks gestation of pregnancy; K80.80 Other cholelithiasis without obstruction; O26.892 Other specified pregnancy related conditions, second trimester; K80.20 Calculus of gallbladder without cholecystitis without obstruction; O99.342 Other mental disorders complicating pregnancy, second trimester; F41.9 Anxiety disorder, unspecified; Z3A.21 21 weeks gestation of pregnancy; K59.00 Constipation, unspecified; D50.0 Iron deficiency anemia secondary to blood loss (chronic)
CPT/HCPCS: 36415; 59025; 74018; 76705; 76819; 80053; 80307; 81001; 82150; 83690; 84132; 85025; 86850; 86900; 86901; 88304; 96360; 96361; 96365; 96374; G0378; C9113; J0131; J0690; J0696; J1200; J1885; J2060; J2270; J2300; J2405; J2704; J2765; J3010; J3480; J7120; U0003

== ENCOUNTER 2021-06-25 21:33 | Outpatient (CLI) | payer OTHER ==
[2021-06-25 22:08] VITALS: BP 118/67
[2021-06-25] MEDS ORDERED: LACTATED RINGERS 1,000 ML IV ONE (22:58)
[2021-06-25 23:00] LABS: Bilirubin,Urine NEG (Negative); Blood,Urine NEG (Negative); Color,Urine Colorless (Yellow); Protein,Urine <15 mg/dL mg/dL (Negative); RBC,Urine < 1.0 /HPF (0.0-6.0); Urobilinogen,Urine < 2.0 mg/dL (<2.0); WBC,Urine < 1.0 /HPF (0.0-6.0)
--- NOTE | 2021-06-26 00:43 | Ultrasound Report ---
ULTRASOUND BIOPHYSICAL PROFILE INDICATION / CLINICAL INFORMATION: BPP. COMPARISON: None available. FINDINGS: BREATHING MOVEMENT = 2 GROSS BODY MOVEMENT = 2 TONE = 2 QUALITATIVE AMNIOTIC FLUID VOLUME = 2 TOTAL BIOPHYSICAL SCORE = 8/8 AMNIOTIC FLUID INDEX (cm) = 8.6 PRESENTATION: Cephalic. HEART RATE (beats per minute): 127 IMPRESSION: 1. Single live intrauterine in cephalic presentation. No significant abnormality. 2. biophysical profile = 8/8 3. BERNARD measures 8.6 cm, within normal limits. Signer Name: Clinton Conti MD Signed: 06/26/2021 12:39 AM Workstation Name: [id number]
== END 2021-06-26 01:55 | disposition home or self-care (01) ==
LOC: TRG 21:33 → APU 21:34 → TRG 06-26 01:55
PROVIDERS: ATTEND Obstetrics & Gynecology
DX: Z34.93 Encounter for supervision of normal pregnancy, unspecified, third trimester (principal); Z3A.39 39 weeks gestation of pregnancy
CPT/HCPCS: 59025; 76815; 76819; 81001; J7120